=== PATIENT | female | born 1990 | race Caucasian/White ===

== ENCOUNTER → 2018-03-30 12:29 | Outpatient (CLI) | payer MEDICAID, SELFPAY ==
[2018-03-30 12:50] LABS: Basophils % 0.3 % (0.1-2.0); Eosinophils # 0.1 K/mm3 (0.0-0.4); Eosinophils % 0.8 % (0.1-12.0); Hematocrit 40.9 % (37.0-47.0); Hemoglobin 13.5 g/dL (12.2-16.2); Lymphocytes # 1.7 K/mm3 (0.7-4.5); Lymphocytes % 30.4 K/mm3 (10-50); Mean Corpuscular HGB Conc 33.1 g/dL (31.8-35.4); Mean Corpuscular Hemoglobin 30.5 pg (27.0-31.2); Mean Corpuscular Volume 92.1 fl (81-99); Mean Platelet Volume 8.5 fl (7.4-10.4); Monocytes # 0.3 K/mm3 (0.1-1.0); Monocytes % 4.4 % (1.7-9.3); Neutrophils # 3.7 K/mm3 (1.8-7.8); Neutrophils % 64.1 % (37.0-80.0); Platelet Count 250 K/mm3 (142-424); Red Blood Count 4.44 M/mm3 (4.20-5.40); Red Cell Distribution Width 12.1 % (11.5-17.5); White Blood Count 5.7 K/mm3 (4.8-10.8)
[2018-03-30 16:32] LABS: Alanine Aminotransferase 35 U/L (12-78); Albumin Level 3.6 gm/dL (3.4-5.0); Alkaline Phosphatase 80 U/L (46-116); Anion Gap 13.5 mEq/L (5-15); Aspartate Amino Transferase 21 U/L (15-37); Bilirubin,Total 0.3 mg/dL (0.2-1.0); Blood Urea Nitrogen 9 mg/dL (7-18); Calcium 9.6 mg/dL (8.5-10.1); Carbon Dioxide 25 mmol/L (21.0-32.0); Chloride 105 mmol/L (98-107); Cholesterol 151 mg/dL (140-200); Creatinine,Serum 0.89 mg/dL (0.55-1.02); Estimated Glomerular Filt Rate 76 ml/min (>60); GFR (African American) 92 ML/MIN (>60); Globulin 3.6 gm/dl (1.3-3.2); Glucose 87 mg/dL (74-106); HDL Cholesterol 51 mg/dL (29-89); LDL Cholesterol 82 mg/dL (0-130); Potassium 4.5 mmoL/L (3.5-5.1); Sodium 139 mmol/L (136-145); Thyroid Stimulating Hormone 0.63 uIU/ml (0.358-3.740); Total Protein,Serum 7.2 gm/dL (6.4-8.2); Triglycerides 90 mg/dL (30-200); VLDL Cholesterol 18 mg/dL (0-40)
== END ==
PROVIDERS: Visit Provider Nurse Practitioner Family
DX: Z00.00 Encounter for general adult medical examination without abnormal findings (principal); N76.0 Acute vaginitis; R31.29 Other microscopic hematuria
CPT/HCPCS: 36415; 80053; 80061; 84443; 85025

== ENCOUNTER → 2018-06-05 10:07 | Outpatient (CLI) | payer MEDICAID, SELFPAY ==
--- NOTE | 2018-06-05 10:08 | US_ITS ---
US transvaginal HISTORY: ITS.REASON: abdominal pain ORDERING PHYSICIAN: Randy Garrison MD PATIENT AGE: 27 years Comparison: None FINDINGS: The uterus measures 7.6 x 3 x 1.5 cm with a combined endometrial thickness of 9 mm. There is a small focus of increased echogenicity in the cervical region within the endocervical canal there is a small echogenic areas in the fundus of the uterus as well. These are questionable clinical significance. A may be due to early calcifications. The right ovary is 2.8 x 2.2 cm and contains small follicles. The left ovary is 3 cm containing a 2 cm cyst. No cul-de-sac fluid. Ovarian blood flow is present on both sides. IMPRESSION: 1. 2 cm left ovarian cyst. 2. Small areas of increased echogenicity in the uterine fundus and one in the cervix. These are questionable clinical significance. Follow-up may confirm stability.
== END ==
PROVIDERS: Family Provider Internal Medicine Adolescent Medicine; PCP Internal Medicine Adolescent Medicine; Visit Provider Obstetrics & Gynecology
DX: R10.2 Pelvic and perineal pain (principal)
CPT/HCPCS: 76830

== ENCOUNTER → 2018-06-18 11:05 | Outpatient (CLI) | payer MEDICAID, SELFPAY ==
[2018-06-18 11:09] LABS: Microscopic, Urine URINE MICROSCOPIC (MICROSCOPIC)
[2018-06-18 11:21] LABS: Bilirubin,Urine Negative (Negative); Blood, Urine 2+ (Negative); Color,Urine YELLOW (Yellow); Glucose,Urine (UA) Negative (Negative); Ketones,Urine Negative (Negative); Leukocyte Esterase,Urine Negative (Negative); Nitrate,Urine Negative (Negative); Protein,Urine Negative (Negative); Specific Gravity, Urine 1.015 (1.005-1.030); Urobilinogen,Urine 0.2 EU/dl (0.2)
[2018-06-18 11:26] LABS: Basophils % 0.2 % (0.1-2.0); Eosinophils # 0.1 K/mm3 (0.0-0.4); Eosinophils % 1.7 % (0.1-12.0); Hematocrit 41.3 % (37.0-47.0); Hemoglobin 13.3 g/dL (12.2-16.2); Lymphocytes # 1.8 K/mm3 (0.7-4.5); Lymphocytes % 34.9 K/mm3 (10-50); Mean Corpuscular HGB Conc 32.1 g/dL (31.8-35.4); Mean Corpuscular Hemoglobin 29.2 pg (27.0-31.2); Mean Corpuscular Volume 90.8 fl (81-99); Mean Platelet Volume 8.4 fl (7.4-10.4); Monocytes # 0.2 K/mm3 (0.1-1.0); Monocytes % 4.3 % (1.7-9.3); Neutrophils % 58.9 % (37.0-80.0); Platelet Count 264 K/mm3 (142-424); Red Blood Count 4.55 M/mm3 (4.20-5.40); White Blood Count 5.1 K/mm3 (4.8-10.8)
[2018-06-18 11:30] LABS: Appearance,Urine Slightly Cloudy (Clear)
[2018-06-18 11:31] LABS: Bacteria,Urine Trace /lpf; Squamous Epithelial Cell,Urine 20-50 #/hpf (0-5)
[2018-06-18 11:50] LABS: HCG Qualitative, Serum Negative (Negative)
[2018-06-18 11:55] LABS: Alanine Aminotransferase 33 U/L (12-78); Albumin Level 3.6 gm/dL (3.4-5.0); Alkaline Phosphatase 93 U/L (46-116); Anion Gap 10.4 mEq/L (5-15); Aspartate Amino Transferase 15 U/L (15-37); Bilirubin,Total 0.4 mg/dL (0.2-1.0); Blood Urea Nitrogen 7 mg/dL (7-18); Calcium 9.1 mg/dL (8.5-10.1); Carbon Dioxide 28 mmol/L (21.0-32.0); Chloride 105 mmol/L (98-107); Creatinine,Serum 0.84 mg/dL (0.55-1.02); Estimated Glomerular Filt Rate 81 ml/min (>60); GFR (African American) 98 ML/MIN (>60); Globulin 3.7 gm/dl (1.3-3.2); Glucose 83 mg/dL (74-106); Potassium 4.4 mmoL/L (3.5-5.1); Sodium 139 mmol/L (136-145); Total Protein,Serum 7.3 gm/dL (6.4-8.2)
== END ==
PROVIDERS: Visit Provider Obstetrics & Gynecology
DX: Z01.818 Encounter for other preprocedural examination (principal); N80.9 Endometriosis, unspecified
CPT/HCPCS: 36415; 80053; 81001; 84703; 85025

== ENCOUNTER → 2018-09-04 09:32 | Outpatient (CLI) | payer MEDICAID, SELFPAY ==
--- NOTE | 2018-09-04 09:38 | XR_ITS ---
EXAM: XR lumbar spine min 4V HISTORY: ITS.REASON: ACUTE RT SIDED BACK PAIN WITH SCIATICA ORDERING PHYSICIAN: Mookie Lim MD PATIENT AGE: 28 years COMPARISON: None FINDINGS: Normal alignment. No fracture or dislocation. No lytic or blastic change. No significant degenerative change. The disc spaces are preserved. IMPRESSION: No acute finding
== END ==
PROVIDERS: PCP Internal Medicine Adolescent Medicine; Visit Provider Internal Medicine Adolescent Medicine
DX: M54.41 Lumbago with sciatica, right side (principal)
CPT/HCPCS: 72110

== ENCOUNTER 2018-09-17 13:00 | Outpatient (RCR) | payer MEDICAID, SELFPAY ==
--- NOTE | 2018-09-09 13:38 | HMH.PTOPEV ---
PT Outpatient Evaluation Rehab PT Outpatient Evaluation Start: 09/09/18 12:52 Freq: Status: Active Protocol: Document 09/09/18 13:25 PHOCECY (Rec: 09/09/18 13:38 PHORNE [id number]) Electronically Signed By Clemente Renteria, PT 09/09/18 13:25 Outpatient Therapy Subjective History Subjective History Pt is 28 yowf who presents with c/o pain in low back x ~ 4 mos, but much worse x ~ 1 wk after an episode of feeling increased pain when bending over. She reports tingling and pain in jimmy LE intermittently and reports the left foot and right hip present with the worst symptoms. She reports no significant PMH, but did have laproscopy due to endometriosis ~ 3 mos ago. Chief Complaint Pain Symptom Type Ache Sharp Symptoms Relieved By Nothing Symptoms Aggravated By Bending/Stooping Prior Functional Limitations None Current Functional Limitations Housework Bending/Stooping Symptom Description Constant but Variable Level of pain today (0-10) 5 Pain scale - at its worst (0-10) 9 Lumbopelvic Eval Posture Thoracic Spine Posture Standing Position Increased Kyphosis Palapation tenderness bilateral paraspinal tenderness Yes Lumbar/Sacral Palpation Findings Tenderness Lumbar/Sacral Palpation Overall Comment jimmy SI jt Accessory Movement L-spine Vertebrae Accessory Movements Central P/A [place] that Elicit Symptoms L2 bilateral L3 bilateral L4 bilateral L5 bilateral S1 bilateral Range of Motion Lumbar Spine Active Flexion Range of 0-55 Motion (degrees) Lumbar Spine Active Extension Range of 0-20 Motion (degrees) Left Lumbar Spine Lateral Flexion Active 0-15 Range of Motion (degrees) Right Lumbar Spine Lateral Flexion 0-20 Active Range of Motion (degrees) Manual Muscle Test Bilateral Knee Extension Strength Grade 5 Normal Knee Flexion Strength Grade 5 Normal Hip Flexion Strength Grade 5 Normal Hip Abduction Strength Grade 5 Normal Hip Adduction Strength Grade 5 Normal Hip External Rotation Strength Grade 5 Normal Hip Internal Rotation Strength Grade 5 Normal Hip Extension Strength Grade 5 Normal Gluteus Bobby Strength Grade 5 Normal Extensor Hallucis Longus Strength Gr
== END 2018-09-17 13:01 | disposition home or self-care (01) ==
LOC: PT 13:00
PROVIDERS: Family Provider Internal Medicine Adolescent Medicine; PCP Internal Medicine Adolescent Medicine; Visit Provider Internal Medicine Adolescent Medicine
DX: M54.41 Lumbago with sciatica, right side (principal)
CPT/HCPCS: 97010; 97014; 97035; 97110; 97140; 97163; G0283

== ENCOUNTER → 2019-08-03 11:09 | Outpatient (CLI) | payer MEDICAID, SELFPAY ==
[2019-08-03 12:26] LABS: Basophils % 0.3 % (0.1-2.0); Eosinophils # 0.1 K/mm3 (0.0-0.4); Eosinophils % 1.2 % (0.1-12.0); Hematocrit 35.8 % (37.0-47.0); Hemoglobin 11.6 g/dL (12.2-16.2); Lymphocytes # 1.6 K/mm3 (0.7-4.5); Lymphocytes % 26.4 % (10-50); Mean Corpuscular HGB Conc 32.5 g/dL (31.8-35.4); Mean Corpuscular Volume 89.2 fl (81-99); Mean Platelet Volume 7.8 fl (7.4-10.4); Monocytes # 0.2 K/mm3 (0.1-1.0); Monocytes % 3.6 % (1.7-9.3); Neutrophils # 4.1 K/mm3 (1.8-7.8); Neutrophils % 68.5 % (37.0-80.0); Platelet Count 253 K/mm3 (142-424); Red Blood Count 4.01 M/mm3 (4.20-5.40); Red Cell Distribution Width 13.3 % (11.5-17.5); White Blood Count 5.9 K/mm3 (4.8-10.8)
[2019-08-03 13:00] LABS: Amphetamine/Metha Screen,Urine Negative ng/mL (<1000); Barbiturates Screen,Urine Negative ng/mL (<200); Benzodiazepines Screen,Urine Negative ng/mL (<200); Cannabinoid Screen,Urine Negative ng/mL (<50); Cocaine Screen,Urine Negative ng/mL (<300); Methadone Screen,Urine Negative ng/mL (<300); Opiate Screen,Urine Negative ng/mL (<300); Phencyclidine Screen,Urine Negative ng/mL (<25)
[2019-08-03 13:05] LABS: Thyroid Stimulating Hormone 1.08 uIU/ml (0.358-3.740)
[2019-08-04 05:08] LABS: HIV Screen 4th Generation wRfx Non Reactive (Non Reactive)
[2019-08-04 07:27] LABS: Hepatitis B Surface Antigen Negative (Negative); Hepatitis C Antibody <0.1 s/co ratio (0.0-0.9)
[2019-08-04 14:30] LABS: Rapid Plasma Reagin Ab Titer Non Reactive (NonRea<1:1); Rubella Antibodies, IgG <0.90 index (Immune >0.99)
== END ==
PROVIDERS: Visit Provider Obstetrics & Gynecology
DX: Z34.90 Encounter for supervision of normal pregnancy, unspecified, unspecified trimester (principal)
CPT/HCPCS: 36415; 80305; 84443; 85025; 86592; 86703; 86762; 86850; 87340; 87380; G0432

== ENCOUNTER 2020-08-01 05:18 | Emergency (ER) | payer OTHER, SELFPAY ==
[2020-08-01 05:30] VITALS: BP 142/89; PULSE 89; RESP 16; TEMP 36.9; O2SAT 100; BMI 36.8
--- NOTE | 2020-08-01 05:37 | HMH.EDGENADL ---
ED Disposition Clinical Impression: Threatened miscarriage in early Disposition: Home, Self-Care Condition on Discharge: Good Instructions: DI for Threatened Additional Instructions: You have been evaluated for vaginal bleeding in first trimester of . It is likely too early to be able to see a normal intrauterine . We have not excluded a outside of the uterus, called an ectopic. Please follow-up with your [facility] in 24 to 48 hours for repeat hCG. Return to the emergency department if you have any new or worsening symptoms, pain, other concerns. Referrals: Sherron Joyce APRN [Primary Care Provider] - Time of Disposition: 06:33 - Critical Care Critical Care Time: No Attestation: On , the high probability of a clinically significant, sudden or life threatening deterioration of the following system(s) required my full and direct attention, intervention and personal management. The time I documented below is in addition to time spent performing reported procedures but includes the following listed in this critical care notation. Medical Decision Making - Medical Records Medical records reviewed: Yes: I reviewed the patient's medical records. - Laz Inquiry Pt receiving controlled substance: No Vital Signs: 08/01/20 05:30 Temperature 98.5 F Temperature Source Oral Pulse Rate [Left] 89 Respiratory Rate 16 Blood Pressure [Right Arm] 142/89 H Blood Pressure Mean [Right Arm] 106 Blood Pressure Source [Right Arm] Automatic Cuff Blood Pressure Position [Right Arm] Sitting 02 Sat by Pulse Oximetry 100 Oxygen Delivery Method Room Air - Lab Data Lab Results 08/01/20 05:40: Urine Color Dk yellow, Urine Appearance Sl cloudy, Urine pH 6.0, Ur Specific [place] 1.025, Urine Protein Negative, Urine Glucose (UA) Negative, Urine Ketones Negative, Urine Blood 3+, Urine Nitrate Negative, Urine Bilirubin Negative, Urine Urobilinogen 0.2, Ur Leukocyte Esterase Negative, Urine RBC 3-5, Urine WBC 5-10, Ur Squamous Epith Cells 10-20, Urine Bacteria 1+ 08/01/20 05:40: Urine HCG, Qual Positive 08/01/20 05:40: HCG, Quant 75 H Orders (Tests/Meds): ORDERS Category Date Time Status US OB transvaginal Stat Ultrasound 08/01/20 05:46 Taken Medical Decision Narrative: in summary this is a 30 year old female presenting to the emergency department with vaginal spotting. She is clinically stable on arrival. Borderline hypertensive, but this is baseline hypertension. Plan to obtain urinalysis, hCG. Patient's blood type is A+, does not require RhoGam. Urinalysis does not show signs of urinary tract infection. Transvaginal ultrasound does not show a clear intrauterine . Does not visualize a cyst or other abnormality within the ovaries. No significant free fluid in the pelvis. Beta hCG is 75. This is significantly low and below the discriminatory zone. On reassessment patient clinically stable in the emergency department. I counseled her to follow-up with her [facility] in 24 to 48 hours. She expressed understanding. Stable for discharge. General Adult HPI - General Chief complaint: Vaginal Bleeding Stated complaint: 5 weeks with spotting Time Seen by Provider: 08/01/20 05:37 Mode of Arrival: Ambulatory Limitations: No Limitations Description of Symptoms (Recalled from ER Triage Doc. by RN): pt has confirmed via bloodwork. she is five weeks[address] Kinney next week. Para 4 3. spotting since this am. she had a miscarriage at almost 16 weeks last august. - History of Present Illness HPI narrative: 30 year old female presenting to the emergency department with vaginal spotting. When she woke up this morning she noticed that there was a small amount of dark blood in her underwear. She is approximately 4 weeks by last menstrual. Has had her confirmed with a blood test as well as urine test. Sh
--- NOTE | 2020-08-01 05:46 | US_ITS ---
PROCEDURE: US OB TRANSVAGINAL CLINICAL INDICATION: bleeding, +preg test COMPARISON: US US OB TRANSVAGINAL from 09/30/2019 FINDINGS: The uterus is retroverted and measures 8 x 5 x 6 cm with a combined endometrial thickness of 13 mm. No intrauterine gestational sac is evident. Specular echoes are present near the cervix and could be due to calcifications or air. The left ovary is 23 x 11 mm with blood flow noted with unremarkable appearance. The right ovary is 26 x 21 mm with blood flow noted. There is a 12 mm cyst in the right ovary. No cul-de-sac fluid is apparent. IMPRESSION: 1. No intrauterine gestational sac apparent. Suggest correlation with beta HCG and follow-up ultrasound if beta hCG remains positive. 2. Retroverted uterus with mildly thickened endometrium and a 12 mm right ovarian cyst Dictated by: Erik Villareal MD 08/01/2020 06:54 Erik Villareal MD in [facility] 08/01/2020 06:54
--- NOTE | 2020-08-01 05:46 | PC.NURSE ---
Notified rad of US
--- NOTE | 2020-08-01 05:55 | PC.NURSE ---
Pt left for US
[2020-08-01 06:15] LABS: Appearance,Urine SL CLOUDY (Clear); Bilirubin,Urine Negative (Negative); Blood, Urine 3+ (Negative); Color,Urine DK YELLOW (Yellow); Glucose,Urine (UA) Negative (Negative); Ketones,Urine Negative (Negative); Leukocyte Esterase,Urine Negative (Negative); Microscopic, Urine URINE MICROSCOPIC (MICROSCOPIC); Nitrate,Urine Negative (Negative); Protein,Urine Negative (Negative); Specific Gravity, Urine 1.025 (1.005-1.030); Urobilinogen,Urine 0.2 EU/dl (0.2)
[2020-08-01 06:19] LABS: Urine Pregnancy, HCG Qual. Positive (Negative)
--- NOTE | 2020-08-01 06:24 | PC.NURSE ---
Pt returned from US
[2020-08-01 06:42] LABS: HCG,Quantitative 75 mIU/ml (0-5.42)
[2020-08-01 06:44] LABS: Bacteria,Urine 1+ /lpf
[2020-08-01 06:49] VITALS: BP 132/81; PULSE 72; RESP 18; TEMP 36.6
== END 2020-08-01 06:52 | disposition home or self-care (01) ==
PROVIDERS: Emergency Provider Emergency Medicine; PCP Nurse Practitioner Family
DX: O20.0 Threatened abortion (principal); F17.210 Nicotine dependence, cigarettes, uncomplicated
CPT/HCPCS: 76817; 81001; 81025; 84702; 99283

== ENCOUNTER → 2020-08-07 08:15 | Outpatient (CLI) | payer OTHER, SELFPAY ==
[2020-08-07 10:21] LABS: HCG,Quantitative 3 mIU/ml (0-5.42)
== END ==
PROVIDERS: Visit Provider Nurse Practitioner Obstetrics & Gynecology
DX: O20.0 Threatened abortion (principal)
CPT/HCPCS: 36415; 84702

== ENCOUNTER → 2020-09-21 13:25 | Outpatient (CLI) | payer OTHER, SELFPAY ==
[2020-09-21 14:43] LABS: HCG,Quantitative 46 mIU/ml (0-5.42)
== END ==
PROVIDERS: Visit Provider Nurse Practitioner Obstetrics & Gynecology
DX: N92.6 Irregular menstruation, unspecified (principal)
CPT/HCPCS: 36415; 84702

== ENCOUNTER → 2020-09-29 06:50 | Outpatient (CLI) | payer OTHER, SELFPAY ==
[2020-09-29 08:16] LABS: HCG,Quantitative 2075 mIU/ml (0-5.42)
== END ==
PROVIDERS: Visit Provider Nurse Practitioner Obstetrics & Gynecology
DX: N92.6 Irregular menstruation, unspecified (principal)
CPT/HCPCS: 36415; 84702

== ENCOUNTER → 2020-10-18 11:35 | Outpatient (CLI) | payer OTHER, SELFPAY ==
[2020-10-18 12:34] LABS: Basophils % 0.1 % (0.1-2.0); Eosinophils # 0.1 K/mm3 (0.0-0.4); Eosinophils % 0.9 % (0.1-12.0); Hematocrit 35.7 % (37.0-47.0); Hemoglobin 11.5 g/dL (12.2-16.2); Lymphocytes # 1.5 K/mm3 (0.7-4.5); Lymphocytes % 24.3 % (10-50); Mean Corpuscular HGB Conc 32.2 g/dL (31.8-35.4); Mean Corpuscular Hemoglobin 28.9 pg (27.0-31.2); Mean Corpuscular Volume 89.8 fl (81-99); Monocytes # 0.3 K/mm3 (0.1-1.0); Monocytes % 4.4 % (1.7-9.3); Neutrophils # 4.4 K/mm3 (1.8-7.8); Neutrophils % 70.2 % (37.0-80.0); Platelet Count 226 K/mm3 (142-424); Red Blood Count 3.97 M/mm3 (4.20-5.40); Red Cell Distribution Width 14.7 % (11.5-17.5); White Blood Count 6.2 K/mm3 (4.8-10.8)
[2020-10-19 10:47] LABS: HIV Screen 4th Generation wRfx Non Reactive (Non Reactive)
[2020-10-19 13:50] LABS: Hepatitis B Surface Antigen Negative (Negative); Hepatitis C Antibody <0.1 s/co ratio (0.0-0.9); Rapid Plasma Reagin Ab Titer Non Reactive (NonRea<1:1)
[2020-10-20 16:20] LABS: Rubella Antibodies, IgG 0.95 index (Immune >0.99)
== END ==
PROVIDERS: Visit Provider Nurse Practitioner Obstetrics & Gynecology
DX: Z34.90 Encounter for supervision of normal pregnancy, unspecified, unspecified trimester (principal)
CPT/HCPCS: 36415; 85025; 86592; 86703; 86762; 86850; 87340; 87380; G0432

== ENCOUNTER → 2020-10-23 14:19 | Outpatient (CLI) | payer OTHER, SELFPAY ==
--- NOTE | 2020-10-23 14:19 | US_ITS ---
PROCEDURE: US OB <= 14 WEEKS FETUS CLINICAL INDICATION: US OB before 14 wks-US OB for DATES COMPARISON: US US OB TRANSVAGINAL from 08/01/2020 FINDINGS: An intrauterine gestational sac is present with a pole with a crown-rump length of 2.04cm correlating to gestational age of 8weeks 5days. heart tones are present with an FHR of 169bpm. Yolk sac is noted. IMPRESSION: Live IUP at 8 weeks 5 days. Estimated due date by Ultrasound is 05/30/2021 Dictated by: Erik Villareal MD 10/23/2020 15:40 Erik Villareal MD in [facility] 10/23/2020 15:40
== END ==
PROVIDERS: PCP Nurse Practitioner Family; Visit Provider Nurse Practitioner Obstetrics & Gynecology
DX: O26.841 Uterine size-date discrepancy, first trimester (principal)
CPT/HCPCS: 76801

== ENCOUNTER → 2020-11-14 18:10 | Outpatient (CLI) | payer OTHER, SELFPAY ==
[2020-11-14 18:12] LABS: Microscopic, Urine URINE MICROSCOPIC (MICROSCOPIC)
[2020-11-14 19:01] LABS: Appearance,Urine CLEAR (Clear); Bilirubin,Urine Negative (Negative); Blood, Urine 1+ (Negative); Color,Urine YELLOW (Yellow); Glucose,Urine (UA) Negative (Negative); Ketones,Urine Negative (Negative); Leukocyte Esterase,Urine 1+ (Negative); Nitrate,Urine Negative (Negative); PH,Urine 7.5 (5.0-8.5); Protein,Urine Negative (Negative); Specific Gravity, Urine 1.015 (1.005-1.030); Urobilinogen,Urine 0.2 EU/dl (0.2)
[2020-11-14 20:11] LABS: Bacteria,Urine Trace /lpf
== END ==
PROVIDERS: Visit Provider Nurse Practitioner Obstetrics & Gynecology
DX: Z34.90 Encounter for supervision of normal pregnancy, unspecified, unspecified trimester (principal); Z3A.11 11 weeks gestation of pregnancy
CPT/HCPCS: 81001; 87086

== ENCOUNTER → 2021-01-04 12:48 | Outpatient (CLI) | payer OTHER, SELFPAY ==
--- NOTE | 2021-01-04 12:48 | US_ITS ---
PROCEDURE: US OB /MATERNAL DETAIL CLINICAL INDICATION: 20 week gestation Anatomy exam COMPARISON: US US OB <= 14 WEEKS FETUS from 10/23/2020 FINDINGS: There is a single live fetus present which was in breech presentation initially but ended up in cephalic presentation.. The cervix is closed and measures 4 cm. Placenta is anterior and grade 1. Complete survey performed and was unremarkable on the submitted images as in PACS. No discrete anomalies identified on survey imaging by technologist. Active fetus. Three-vessel cord with satisfactory umbilical cord insertion. 4- chamber heart noted. There is a nonspecific echogenic cardiac focus. Survey of brain & ventricles Unremarkable. Face and neck survey unremarkable. Diaphragm and chest views unremarkable. Abdomen: Both kidneys noted and unremarkable. Stomach noted and satisfactory. Spine: Survey of the spine satisfactory with no anomalies identified nor imaged. Both arms and legs noted. Amniotic Fluid: Adequate. Maternal adnexa: No significant findings. Measurements: Average ultrasound age 19weeks 2days. Gestational Age 19weeks 2days Estimated due date by ultrasound age 0605/29/2021. Estimated weight 308g BPD = 18weeks 6days OFD = 19 weeks 3 days HC = 18weeks 3days AC = 20weeks FL = 19weeks 6days Growth Percentile= 78% Heart Rate = 150bpm Cerebellum = 19weeks 1day Humerus = 18weeks 6days HC/AC is 1.05 CI is 0.76 FL/BPD is 0.74 FL/AC is 0.21 IMPRESSION: There is a live IUP at 19 weeks 2 days which ended up in cephalic presentation. All parameters correlate. Nonspecific echogenic cardiac focus is noted which is of questionable clinical significance. Fetus has an otherwise unremarkable appearance. Dictated by: Erik Villareal MD 01/05/2021 13:20 Erik Villareal MD in [facility] 01/05/2021 13:20
== END ==
PROVIDERS: PCP Nurse Practitioner Family; Visit Provider Nurse Practitioner Obstetrics & Gynecology
DX: Z3A.20 20 weeks gestation of pregnancy; Z34.90 Encounter for supervision of normal pregnancy, unspecified, unspecified trimester
CPT/HCPCS: 76805; 76811

== ENCOUNTER → 2021-02-23 07:00 | Outpatient (CLI) | payer OTHER, SELFPAY ==
[2021-02-23 08:10] LABS: Glucose,Fasting 87 mg/dl (74-100)
[2021-02-23 08:56] LABS: Glucose 1 Hour 122 mg/dL (74-100)
== END ==
PROVIDERS: Visit Provider Nurse Practitioner Obstetrics & Gynecology
DX: Z34.90 Encounter for supervision of normal pregnancy, unspecified, unspecified trimester (principal)
CPT/HCPCS: 36415; 82951

== ENCOUNTER 2021-04-27 11:31 | Outpatient (CLI) | payer OTHER, SELFPAY ==
[2021-04-27 11:44] VITALS: BMI 39.4
[2021-04-27 12:14] VITALS: BP 125/71; PULSE 77; RESP 16; O2SAT 96; BMI 39.4
[2021-04-27 12:22] LABS: Microscopic, Urine URINE MICROSCOPIC (MICROSCOPIC)
[2021-04-27 12:23] LABS: Appearance,Urine CLEAR (Clear); Bilirubin,Urine Negative (Negative); Blood, Urine Negative (Negative); Color,Urine YELLOW (Yellow); Glucose,Urine (UA) Negative (Negative); Ketones,Urine Negative (Negative); Leukocyte Esterase,Urine Negative (Negative); Nitrate,Urine Negative (Negative); Protein,Urine Negative (Negative); Specific Gravity, Urine 1.015 (1.005-1.030); Urobilinogen,Urine 0.2 EU/dl (0.2)
[2021-04-27 12:30] LABS: Amorphous Sediment,Urine 1+ /lpf
[2021-04-27 16:44] LABS: Barbiturates Screen,Urine Negative ng/ml (<200); Benzodiazepines Screen,Urine Negative ng/ml (<200)
[2021-04-27 16:45] LABS: Cannabinoid Screen,Urine Negative ng/ml (<50)
[2021-04-27 16:46] LABS: Cocaine Screen,Urine Negative ng/ml (<300)
[2021-04-27 16:47] LABS: Methadone Screen,Urine Negative ng/ml (<300)
[2021-04-27 16:48] LABS: Opiate Screen,Urine Negative ng/ml (<300); Phencyclidine Screen,Urine Negative ng/ml (<25)
[2021-04-27 16:51] LABS: Amphetamine/Metha Screen,Urine Negative ng/ml (<1000)
== END 2021-04-27 13:32 | disposition home or self-care (01) ==
LOC: OBOUT 11:33 → OB 11:34
PROVIDERS: PCP Internal Medicine Adolescent Medicine; Visit Provider Obstetrics & Gynecology
DX: O47.03 False labor before 37 completed weeks of gestation, third trimester (principal); Z3A.35 35 weeks gestation of pregnancy; R10.2 Pelvic and perineal pain; R11.0 Nausea
CPT/HCPCS: 59025; 80305; 81001; 96365; G0463

== ENCOUNTER → 2021-05-03 15:38 | Outpatient (CLI) | payer OTHER, SELFPAY | PROVIDERS: Visit Provider Nurse Practitioner Obstetrics & Gynecology | DX: Z34.90 Encounter for supervision of normal pregnancy, unspecified, unspecified trimester (principal) | CPT/HCPCS: 86403 ==

== ENCOUNTER 2021-05-10 20:27 | Outpatient (CLI) | payer OTHER, SELFPAY ==
[2021-05-10 20:36] VITALS: BMI 39.7
[2021-05-10 21:17] LABS: Microscopic, Urine URINE MICROSCOPIC (MICROSCOPIC)
[2021-05-10 21:20] LABS: Appearance,Urine CLEAR (Clear); Bilirubin,Urine Negative (Negative); Blood, Urine TRACE-I (Negative); Color,Urine YELLOW (Yellow); Glucose,Urine (UA) Negative (Negative); Ketones,Urine Negative (Negative); Leukocyte Esterase,Urine Negative (Negative); Nitrate,Urine Negative (Negative); Protein,Urine Negative (Negative); Urobilinogen,Urine 0.2 EU/dl (0.2)
[2021-05-10 21:32] LABS: Amphetamine/Metha Screen,Urine Negative ng/ml (<1000); RBC,Urine Occasional #/hpf (0-3)
[2021-05-10 21:34] LABS: Barbiturates Screen,Urine Negative ng/ml (<200); Benzodiazepines Screen,Urine Negative ng/ml (<200)
[2021-05-10 21:35] LABS: Cannabinoid Screen,Urine Negative ng/ml (<50); Cocaine Screen,Urine Negative ng/ml (<300)
[2021-05-10 21:36] LABS: Methadone Screen,Urine Negative ng/ml (<300)
[2021-05-10 21:37] LABS: Opiate Screen,Urine Negative ng/ml (<300); Phencyclidine Screen,Urine Negative ng/ml (<25)
[2021-05-10 21:38] VITALS: BP 140/88; PULSE 99; RESP 18; TEMP 37.6; O2SAT 97; BMI 39.7
== END 2021-05-10 23:11 | disposition home or self-care (01) ==
LOC: OBOUT 20:32 → OB 20:33
PROVIDERS: PCP Nurse Practitioner Obstetrics & Gynecology; Visit Provider Obstetrics & Gynecology
DX: O60.03 Preterm labor without delivery, third trimester (principal); Z3A.37 37 weeks gestation of pregnancy
CPT/HCPCS: 59025; 80305; 81001; 96365; G0463

== ENCOUNTER 2021-05-13 01:23 | Observation (INO) | payer OTHER, SELFPAY ==
[2021-05-12 22:47] VITALS: BMI 40.1
[2021-05-12 23:02] LABS: Microscopic, Urine URINE MICROSCOPIC (MICROSCOPIC)
[2021-05-12 23:03] VITALS: BP 120/72; PULSE 105; RESP 18; TEMP 36.7; O2SAT 96; BMI 40.1
[2021-05-12 23:05] LABS: Appearance,Urine CLEAR (Clear); Bilirubin,Urine Negative (Negative); Blood, Urine TRACE-I (Negative); Color,Urine STRAW (Yellow); Glucose,Urine (UA) Negative (Negative); Ketones,Urine Negative (Negative); Leukocyte Esterase,Urine Negative (Negative); Nitrate,Urine Negative (Negative); Protein,Urine Negative (Negative); Urobilinogen,Urine 0.2 EU/dl (0.2)
[2021-05-12 23:14] LABS: Bacteria,Urine Trace /lpf; RBC,Urine Occasional #/hpf (0-3); Squamous Epithelial Cell,Urine Occasional #/hpf (0-5)
[2021-05-12 23:16] LABS: Barbiturates Screen,Urine Negative ng/ml (<200); Benzodiazepines Screen,Urine Negative ng/ml (<200)
[2021-05-12 23:17] LABS: Amphetamine/Metha Screen,Urine Negative ng/ml (<1000)
[2021-05-12 23:18] LABS: Cannabinoid Screen,Urine Negative ng/ml (<50); Cocaine Screen,Urine Negative ng/ml (<300)
[2021-05-12 23:19] LABS: Methadone Screen,Urine Negative ng/ml (<300); Opiate Screen,Urine Negative ng/ml (<300)
[2021-05-12 23:20] LABS: Phencyclidine Screen,Urine Negative ng/ml (<25)
[2021-05-13 01:13] LABS: Coronavirus 19, PCR Not Detected (NotDetected); Influenza A, PCR Not Detected (NotDetected); Influenza B, PCR Not Detected (NotDetected)
[2021-05-13 01:21] LABS: Basophils % 0.1 % (0.1-2.0); Eosinophils # 0.1 K/mm3 (0.0-0.4); Eosinophils % 0.5 % (0.1-12.0); Hematocrit 30.6 % (37.0-47.0); Hemoglobin 10.5 g/dL (12.2-16.2); Lymphocytes # 2.3 K/mm3 (0.7-4.5); Lymphocytes % 14.8 % (10-50); Mean Corpuscular HGB Conc 34.3 g/dL (31.8-35.4); Mean Corpuscular Hemoglobin 30.3 pg (27.0-31.2); Mean Corpuscular Volume 88.3 fl (81-99); Mean Platelet Volume 8.9 fl (7.4-10.4); Monocytes # 0.6 K/mm3 (0.1-1.0); Monocytes % 4.1 % (1.7-9.3); Neutrophils # 12.2 K/mm3 (1.8-7.8); Neutrophils % 80.5 % (37.0-80.0); Platelet Count 251 K/mm3 (142-424); Red Blood Count 3.47 M/mm3 (4.20-5.40); Red Cell Distribution Width 14.3 % (11.5-17.5); White Blood Count 15.2 K/mm3 (4.8-10.8)
[2021-05-13 01:23] LABS: MANUAL DIFFERENTIAL MANUAL DIFFERENTIAL (MANUAL DIFF)
[2021-05-13 01:34] LABS: Lymphocytes % 7 % (10-50); Monocytes % 3 % (2-9); Neutrophils % 90 % (42-76); Platelet Estimate Normal; RBC Morphology Normal; Total Cells Counted 100
[2021-05-13 01:35] VITALS: BP 125/59; PULSE 90; RESP 18; TEMP 36.8; O2SAT 98
[2021-05-13 04:43] VITALS: BP 109/53; PULSE 76; RESP 17; TEMP 36.9; O2SAT 97
[2021-05-13 07:15] VITALS: BP 116/57; PULSE 73; RESP 16; TEMP 36.8; O2SAT 97
--- NOTE | 2021-05-13 08:19 | HMH.HP ---
*Admission Date: 05/12/21 *Chief complaint: Regular contractions at 37-3/7 weeks *History of present illness: This 30-year-old 3, para 2, Ab0 white female was admitted at 37-3/7 weeks with regular contractions every 2 to 3 minutes. She has had 2 previous vaginal deliveries, after the first of which she experienced a hemorrhage. There have been no complications during this . She is group B strep positive. [facility] History I have reviewed the patient's past medical history: Yes (Normal, except for hemorrhage after her first delivery (not her ) Medical History: Denies:: Cancer, Diabetes Mellitus Type 1, Diabetes Mellitus Type 2, MRSA, Seizures *Have you ever received a pneumonia vaccine?: No *Have you received a flu vaccine this season?: No Other Medical History: Reports: Other. Denies: Blood Transfusion Reaction Other Surgeries: Yes: Cholecystectomy, Diagnostic Lap, Other. No: Amputation: No Fractures: No - *Social History Smoking Status: Current every day smoker Tobacco Type: cigarettes # Packs/Day (cigarettes): 1 Alcohol Intake: never Alcohol Intake Frequency:: other Substance Use Type: denies use *Occupational Status:: unemployed Household Members: family *Travel in the last 8 weeks: None Family Hx:: No significant family history Para: 2 Meds Home Medications Medication Instructions Recorded Confirmed Type vit 122-ferrous fumarate 1 tab PO DAILY #30 tab 10/17/20 05/13/21 Rx 27 mg iron-folic acid 800 mcg tablet Ferrous Gluconate [Ferrous 240 mg PO DAILY 05/13/21 05/13/21 History Gluconate 240mg Tab] Allergies Allergy/AdvReac Type Severity Reaction Status Date / Time No Known Allergies Allergy Verified 05/11/21 09:57 Exam Vital signs and Labs for Last 24 Hours: Temp Pulse Resp BP Pulse Ox 98.4 F 76 17 109/53 L 97 05/13/21 04:43 05/13/21 04:43 05/13/21 04:43 05/13/21 04:43 05/13/21 04:43 Laboratory Results - last 24 hr 05/12/21 22:02: Urine Color Straw, Urine Appearance Clear, Urine pH 7.0, Ur Specific [place] 1.010, Urine Protein Negative, Urine Glucose (UA) Negative, Urine Ketones Negative, Urine Blood Trace-i, Urine Nitrate Negative, Urine Bilirubin Negative, Urine Urobilinogen 0.2, Ur Leukocyte Esterase Negative, Urine RBC Occasional, Ur Squamous Epith Cells Occasional, Urine Bacteria Trace 05/12/21 22:02: Urine Opiates Screen Negative, Urine Methadone Screen Negative, Ur Barbituates Screen Negative, Ur Phencyclidine Scrn Negative, Ur Amphetamines Screen Negative, U Benzodiazepines Scrn Negative, Urine Cocaine Screen Negative, U Marijuana (THC) Screen Negative 05/13/21 01:02: WBC 15.2 H, RBC 3.47 L, Hgb 10.5 L, Hct 30.6 L, MCV 88.3, MCH 30.3, MCHC 34.3, RDW 14.3, Plt Count 251, MPV 8.9, Neut % (Auto) 80.5 H, Lymph % (Auto) 14.8, [place] % (Auto) 4.1, Eos % (Auto) 0.5, Baso % (Auto) 0.1, Neut # (Auto) 12.2 H, Lymph # (Auto) 2.3, [place] # (Auto) 0.6, Eos # (Auto) 0.1, Baso # (Auto) 0.0, Total Counted 100, Neutrophils % (Manual) 90 H, Lymphocytes % (Manual) 7 L, Monocytes % (Manual) 3, Platelet Estimate Normal, RBC Morphology Normal 05/13/21 01:02: Blood Type A Positive, Antibody Screen Negative I & O for Last 24 hours: Intake & Output 05/10/21 05/11/21 05/12/21 05/13/21 11:59 11:59 11:59 11:59 Weight 256 lb - *Routine HEENT Exam Head: Present: normocephalic (Normal) Eye: Present: EOMI (Normal) ENT: Present: mucous membranes moist (Normal) - *Routine Respiratory Exam Present: accessory muscle use (Normal) - *Routine Cardiovascular Exam Present: RRR (Normal) - *Routine Abdominal Exam Present: soft (Soft) - *Routine Rectal Exam Rectal:: deferred - *Routine Genitalia Exam Genitalia:: normal female
--- NOTE | 2021-05-13 08:25 | P.PN_ITS ---
Internal Medicine - PN: Subj *Date: 05/13/21 *Time: 08:25 (This 30-year-old 3, para 2, Ab0 white female was admitted at approximately 2300 last evening with regular contractions at 37-3/7 weeks. Her contractions continued, but her cervix has remained 1 to 2 cm. She is currently being augmented with intravenous Pitocin. She is also receiving intravenous antibiotics because of a positive group B strep culture. This patient experienced a hemorrhage after her first delivery (not her second), and has had no complications during this . Her first 2 babies weighed 6 pounds 8 ounces and 7 pounds 10 ounces. This baby appears somewhat larger. Proceeding with anticipation of a vaginal delivery.) Exam Vital signs and Labs for Last 24 Hours: Temp Pulse Resp BP Pulse Ox 98.4 F 76 17 109/53 L 97 05/13/21 04:43 05/13/21 04:43 05/13/21 04:43 05/13/21 04:43 05/13/21 04:43 Laboratory Results - last 24 hr 05/12/21 22:02: Urine Color Straw, Urine Appearance Clear, Urine pH 7.0, Ur Specific [place] 1.010, Urine Protein Negative, Urine Glucose (UA) Negative, Urine Ketones Negative, Urine Blood Trace-i, Urine Nitrate Negative, Urine Bilirubin Negative, Urine Urobilinogen 0.2, Ur Leukocyte Esterase Negative, Urine RBC Occasional, Ur Squamous Epith Cells Occasional, Urine Bacteria Trace 05/12/21 22:02: Urine Opiates Screen Negative, Urine Methadone Screen Negative, Ur Barbituates Screen Negative, Ur Phencyclidine Scrn Negative, Ur Amphetamines Screen Negative, U Benzodiazepines Scrn Negative, Urine Cocaine Screen Negative, U Marijuana (THC) Screen Negative 05/13/21 01:02: WBC 15.2 H, RBC 3.47 L, Hgb 10.5 L, Hct 30.6 L, MCV 88.3, MCH 30.3, MCHC 34.3, RDW 14.3, Plt Count 251, MPV 8.9, Neut % (Auto) 80.5 H, Lymph % (Auto) 14.8, [place] % (Auto) 4.1, Eos % (Auto) 0.5, Baso % (Auto) 0.1, Neut # (Auto) 12.2 H, Lymph # (Auto) 2.3, [place] # (Auto) 0.6, Eos # (Auto) 0.1, Baso # (Auto) 0.0, Total Counted 100, Neutrophils % (Manual) 90 H, Lymphocytes % (Manual) 7 L, Monocytes % (Manual) 3, Platelet Estimate Normal, RBC Morphology Normal 05/13/21 01:02: Blood Type A Positive, Antibody Screen Negative I & O for Last 24 hours: Intake & Output 05/10/21 05/11/21 05/12/21 05/13/21 11:59 11:59 11:59 11:59 Weight 256 lb
--- NOTE | 2021-05-13 08:36 | HMH.ACPN2 ---
Internal Medicine - PN: Subj *Date: 05/13/21 *Time: 08:36 Interval history: Since my last note, there has been a change of plans. Upon further consideration and in consultation with the patient and her partner, given the fact that she is 37-4/7 weeks and has been having fairly strong somewhat regular contractions for 9 to 10 hours at this time with no change in her cervix, it seems prudent to be more conservative and discharge the patient to home to await further developments. Her nonstress/stress test is reactive. She has had 2 previous vaginal deliveries, after the first of which she experienced a hemorrhage (not the second), and has had no problems during this . This baby does appear larger than her first 2 (6 pound 8 ounces and 7 pound 10 ounces), and I feel that pushing her delivery at this time might increase the necessity for a section. All this has been explained to the patient and her partner and they understand and accept this decision. Her IV and IV Pitocin will be discontinued and she will be discharged. She is counseled to return to the labor room if her bag of water breaks or if her contractions become more regular and unbearable. She is counseled to rest at home and to call Dr. Kinney's office tomorrow morning for further instructions. Exam Vital signs and Labs for Last 24 Hours: Temp Pulse Resp BP Pulse Ox 98.2 F 73 16 116/57 L 97 05/13/21 07:15 05/13/21 07:15 05/13/21 07:15 05/13/21 07:15 05/13/21 07:15 Laboratory Results - last 24 hr 05/12/21 22:02: Urine Color Straw, Urine Appearance Clear, Urine pH 7.0, Ur Specific [place] 1.010, Urine Protein Negative, Urine Glucose (UA) Negative, Urine Ketones Negative, Urine Blood Trace-i, Urine Nitrate Negative, Urine Bilirubin Negative, Urine Urobilinogen 0.2, Ur Leukocyte Esterase Negative, Urine RBC Occasional, Ur Squamous Epith Cells Occasional, Urine Bacteria Trace 05/12/21 22:02: Urine Opiates Screen Negative, Urine Methadone Screen Negative, Ur Barbituates Screen Negative, Ur Phencyclidine Scrn Negative, Ur Amphetamines Screen Negative, U Benzodiazepines Scrn Negative, Urine Cocaine Screen Negative, U Marijuana (THC) Screen Negative 05/13/21 01:02: WBC 15.2 H, RBC 3.47 L, Hgb 10.5 L, Hct 30.6 L, MCV 88.3, MCH 30.3, MCHC 34.3, RDW 14.3, Plt Count 251, MPV 8.9, Neut % (Auto) 80.5 H, Lymph % (Auto) 14.8, [place] % (Auto) 4.1, Eos % (Auto) 0.5, Baso % (Auto) 0.1, Neut # (Auto) 12.2 H, Lymph # (Auto) 2.3, [place] # (Auto) 0.6, Eos # (Auto) 0.1, Baso # (Auto) 0.0, Total Counted 100, Neutrophils % (Manual) 90 H, Lymphocytes % (Manual) 7 L, Monocytes % (Manual) 3, Platelet Estimate Normal, RBC Morphology Normal 05/13/21 01:02: Blood Type A Positive, Antibody Screen Negative I & O for Last 24 hours: Intake & Output 05/10/21 05/11/21 05/12/21 05/13/21 11:59 11:59 11:59 11:59 Weight 256 lb
--- NOTE | 2021-05-28 10:49 | HMH.DCSUM ---
General - General Admission date:: 05/13/21 Discharge date: 05/13/21 HPI HPI: This 30-year-old 3, para 2, Ab0 white female was admitted at 37-3/7 weeks with regular contractions every 2 to 3 minutes. She has had 2 previous vaginal deliveries, after the first of which she experienced a hemorrhage. There have been no complications during this . She is group B strep positive. Hospital Course Hospital Course: This 30-year-old multigravid white female was admitted with regular contractions at 37-4/7 weeks of gestation with history of regular contractions at 1 to 2 cm dilatation. Because of a history of rapid labors, she was admitted and observed for a while, then started on intravenous Pitocin to augment her labor. However, her cervix never dilated further and she made no progress. After discussion with the patient and her partner, along with the fact that she is under 39 weeks of gestation with a reactive nonstress test, it was decided to change course and discharge the patient to await further developments, i.e. more regular contractions, rupture of membranes, or severe pain. She is given instructions to call Dr. Kinney tomorrow morning for follow-up. Rhogam Administration: Not Indicated Objective Vital signs: Temp Pulse Resp BP Pulse Ox 98.2 F 73 16 116/57 L 97 05/13/21 07:15 05/13/21 07:15 05/13/21 07:15 05/13/21 07:15 05/13/21 07:15 no acute distress - *Routine HEENT Exam Head: Present: normocephalic Eye: Present: EOMI, PERRL ENT: Present: mucous membranes moist - *Routine Neck Exam Present: supple - *Routine Respiratory Exam Present: CTA bilaterally - *Routine Cardiovascular Exam Present: RRR - *Routine Abdominal Exam Present: soft, normoactive bowel sounds. Absent: tenderness - *Routine Extremities Exam Absent: cyanosis, clubbing, edema - *Routine Skin Exam Present: warm. Absent: rash - Detailed Eye Exam Eyelids: Bilateral normal inspection DS: Diagnosis - Discharge Diagnosis (1) False labor after 37 weeks of gestation without delivery Status: Acute Discharge Plan - Patient Discharge Instructions ACTIVITY: Bed rest DIET: continue same diet Additional Instructions: Rest and drink plenty of water. Call Dr. Kinney's office tomorrow to schedule appointment. Patient Instructions: Hemorrhage, [facility] Labor, Antepartum Care - Follow up Plan Follow up with: Benedict Kinney MD [Staff Physician] - 05/18/21 9:45 am Disposition: Home, Self-Care Condition at discharge:: Stable Home Medications: Home Medications Medication Instructions Recorded Confirmed Type Ferrous Gluconate [Ferrous 240 mg PO DAILY 05/13/21 05/23/21 History Gluconate 240mg Tab] No122/Iron/Folic Acid 1 tab PO DAILY 05/24/21 05/23/21 History [ Multi Tablet] Prescriptions/Medication Reconciliation: Continued Ferrous Gluconate [Ferrous Gluconate 240mg Tab] 240 mg PO DAILY No Action No122/Iron/Folic Acid [ Multi Tablet] 1 tab PO DAILY - Problem Reconciliation Problems Reviewed?: Yes
== END 2021-05-13 09:00 | disposition home or self-care (01) | DRG 833 ==
LOC: OBOUT 01:26 → OB 06:50
PROVIDERS: Admitting Provider Obstetrics & Gynecology; PCP Internal Medicine Adolescent Medicine; Referring Provider Nurse Practitioner Obstetrics & Gynecology; Visit Provider Obstetrics & Gynecology
DX: O60.03 Preterm labor without delivery, third trimester (principal); Z3A.37 37 weeks gestation of pregnancy
CPT/HCPCS: 59025; 80305; 81001; 85007; 85025; 86850; 96360; 96372; G0378; J0290; U0003

== ENCOUNTER 2021-05-20 19:38 | Outpatient (CLI) | payer OTHER, SELFPAY ==
[2021-05-20 19:47] VITALS: BMI 40.2
[2021-05-20 21:42] VITALS: BP 120/77; PULSE 100; RESP 18; TEMP 36.6; O2SAT 97; BMI 40.2
[2021-05-20 21:46] LABS: Microscopic, Urine URINE MICROSCOPIC (MICROSCOPIC)
[2021-05-20 21:49] LABS: Appearance,Urine CLEAR (Clear); Bilirubin,Urine Negative (Negative); Blood, Urine TRACE-I (Negative); Color,Urine YELLOW (Yellow); Glucose,Urine (UA) Negative (Negative); Ketones,Urine Negative (Negative); Leukocyte Esterase,Urine Negative (Negative); Nitrate,Urine Negative (Negative); PH,Urine 6.5 (5.0-8.5); Protein,Urine Negative (Negative); Specific Gravity, Urine 1.015 (1.005-1.030); Urobilinogen,Urine 0.2 EU/dl (0.2)
[2021-05-20 21:56] LABS: RBC,Urine Occasional #/hpf (0-3); Squamous Epithelial Cell,Urine Occasional #/hpf (0-5)
[2021-05-20 21:57] LABS: Bacteria,Urine Trace /lpf
[2021-05-20 22:01] LABS: Barbiturates Screen,Urine Negative ng/ml (<200)
[2021-05-20 22:02] LABS: Amphetamine/Metha Screen,Urine Negative ng/ml (<1000); Benzodiazepines Screen,Urine Negative ng/ml (<200)
[2021-05-20 22:03] LABS: Cannabinoid Screen,Urine Negative ng/ml (<50)
[2021-05-20 22:04] LABS: Cocaine Screen,Urine Negative ng/ml (<300); Methadone Screen,Urine Negative ng/ml (<300)
[2021-05-20 22:05] LABS: Opiate Screen,Urine Negative ng/ml (<300)
[2021-05-20 22:06] LABS: Phencyclidine Screen,Urine Negative ng/ml (<25)
== END 2021-05-20 22:10 | disposition home or self-care (01) ==
LOC: OBOUT 19:39 → OB 19:39
PROVIDERS: PCP Internal Medicine Adolescent Medicine; Visit Provider Obstetrics & Gynecology
DX: O47.03 False labor before 37 completed weeks of gestation, third trimester (principal); Z3A.38 38 weeks gestation of pregnancy
CPT/HCPCS: 59025; 80305; 81001; 96365; G0463

== ENCOUNTER 2021-05-23 04:41 | Inpatient (IN) | payer OTHER, SELFPAY ==
[2021-05-23 04:47] VITALS: BMI 39.9
[2021-05-23 05:21] VITALS: BP 131/66; PULSE 90; RESP 18; TEMP 36.6; O2SAT 98; BMI 39.9
[2021-05-23 05:28] LABS: Microscopic, Urine URINE MICROSCOPIC (MICROSCOPIC)
[2021-05-23 05:28] LABS: Coronavirus 19, PCR Not Detected (NotDetected); Influenza A, PCR Not Detected (NotDetected); Influenza B, PCR Not Detected (NotDetected)
[2021-05-23 05:31] LABS: Basophils % 0.3 % (0.1-2.0); Eosinophils # 0.1 K/mm3 (0.0-0.4); Eosinophils % 0.9 % (0.1-12.0); Hematocrit 33.2 % (37.0-47.0); Hemoglobin 11.4 g/dL (12.2-16.2); Lymphocytes # 2.8 K/mm3 (0.7-4.5); Lymphocytes % 22.6 % (10-50); Mean Corpuscular HGB Conc 34.3 g/dL (31.8-35.4); Mean Corpuscular Hemoglobin 30.7 pg (27.0-31.2); Mean Corpuscular Volume 89.5 fl (81-99); Mean Platelet Volume 8.2 fl (7.4-10.4); Monocytes # 0.6 K/mm3 (0.1-1.0); Monocytes % 4.6 % (1.7-9.3); Neutrophils # 8.9 K/mm3 (1.8-7.8); Neutrophils % 71.6 % (37.0-80.0); Platelet Count 335 K/mm3 (142-424); Red Blood Count 3.71 M/mm3 (4.20-5.40); Red Cell Distribution Width 14.7 % (11.5-17.5); White Blood Count 12.4 K/mm3 (4.8-10.8)
[2021-05-23 05:36] LABS: Appearance,Urine CLEAR (Clear); Bilirubin,Urine Negative (Negative); Blood, Urine TRACE-I (Negative); Color,Urine YELLOW (Yellow); Glucose,Urine (UA) Negative (Negative); Ketones,Urine Negative (Negative); Leukocyte Esterase,Urine Negative (Negative); Nitrate,Urine Negative (Negative); Protein,Urine Negative (Negative); Urobilinogen,Urine 0.2 EU/dl (0.2)
[2021-05-23 05:47] LABS: Benzodiazepines Screen,Urine Negative ng/ml (<200)
[2021-05-23 05:48] LABS: Amphetamine/Metha Screen,Urine Negative ng/ml (<1000); Barbiturates Screen,Urine Negative ng/ml (<200)
[2021-05-23 05:49] LABS: Cannabinoid Screen,Urine Negative ng/ml (<50)
[2021-05-23 05:50] LABS: Cocaine Screen,Urine Negative ng/ml (<300); Methadone Screen,Urine Negative ng/ml (<300)
[2021-05-23 05:51] LABS: Opiate Screen,Urine Negative ng/ml (<300)
[2021-05-23 05:52] LABS: Phencyclidine Screen,Urine Negative ng/ml (<25)
[2021-05-23 06:00] LABS: Bacteria,Urine 1+ /lpf; Mucus,Urine 1+ /lpf
--- NOTE | 2021-05-23 09:19 | HMH.LABNOT ---
Labor Note - Subjective: Date: 05/23/21 Time: 09:19 regular contraction - Objective: NST:: Reactive Contractions:: every 2-3 minutes Cervical Dilation:: 2 Effacement:: 50% Station: -2 Membranes: artificially ruptured Comment:: I ruptured her membranes and there was clear fluid. - Fetus: Monitoring?: Yes monitoring type:: External - Assessment: Labor progressing?: Yes Cephalopelvic disproportion?: No Patient Problems: All Active Problems (Acute) Abnormal vaginal bleeding (Acute) - Plan: Anesthesia for epidural?: No Continue to labor down?: Yes Plan for ?: No Continue to monitor?: Yes Start pushing?: No
--- NOTE | 2021-05-23 09:20 | HMH.OBAPHP ---
OB - H&P: HPI Antepartum - History of Present Illness Chief complaint: Term History of present illness: She is a 30-year-old 3 para 2 at 39 weeks gestational age. She is feeling pressure as well as discomfort and as result of that we have offered her induction of labor at term. - History of Present Criteria for establishing EDC:: LMP confirmed by 1st trimester US care: good care Ultrasounds: normal 1st trimester US, normal mid trimester US Obstetrical complications: none Medical complications: none - Labs GBS status: positive [facility] History I have reviewed the patient's past medical history: Yes Medical History: Denies:: Cancer, Diabetes Mellitus Type 1, Diabetes Mellitus Type 2, MRSA, Seizures *Have you ever received a pneumonia vaccine?: No *Have you received a flu vaccine this season?: No Other Medical History: Reports: Other. Denies: Blood Transfusion Reaction Other Surgeries: Yes: Cholecystectomy, Diagnostic Lap, Other. No: Amputation: No Fractures: No - *Social History Smoking Status: Current every day smoker Tobacco Type: cigarettes # Packs/Day (cigarettes): 1 Alcohol Intake: never Alcohol Intake Frequency:: other Substance Use Type: denies use *Occupational Status:: unemployed Household Members: family *Travel in the last 8 weeks: None Family Hx:: No significant family history Para: 2 Review of Systems - Review of Systems Review of systems:: pertinent systems reviewed and negative unless documented below Meds Home Medications Medication Instructions Recorded Confirmed Type vit 122-ferrous fumarate 1 tab PO DAILY #30 tab 10/17/20 05/23/21 Rx 27 mg iron-folic acid 800 mcg tablet Ferrous Gluconate [Ferrous 240 mg PO DAILY 05/13/21 05/23/21 History Gluconate 240mg Tab] Allergies Allergy/AdvReac Type Severity Reaction Status Date / Time No Known Allergies Allergy Verified 05/18/21 10:09 OB - H&P: Exam - Physical Exam Vital signs: Temp Pulse Resp BP Pulse Ox 97.9 F 90 18 131/66 98 05/23/21 05:21 05/23/21 05:21 05/23/21 05:21 05/23/21 05:05/23/21 05:21 - Constitutional no acute distress - Routine HEENT Exam Head: Present: normocephalic Eye: Present: EOMI, PERRL ENT: Present: mucous membranes moist - Routine Neck Exam Present: supple, full ROM - Routine Respiratory Exam Absent: accessory muscle use (good air entry bilaterally), respiratory distress, wheezes, crackles - Routine Cardiovascular Exam Present: RRR. Absent: murmur - Routine Abdominal Exam Present: soft, normoactive bowel sounds. Absent: tenderness, distended, guarding - Routine Rectal Exam Patient deferred: visual exam, digital exam - Routine Exam Patient deferred: external exam, groin exam, perineal exam - Routine Extremities Exam Present: full ROM. Absent: cyanosis, edema - Routine Skin Exam Present: intact. Absent: cyanosis - Routine Neurological Exam Present: alert, oriented X3 - Routine Psychiatric Exam Present: normal affect OB - Results - Labs Labs: Short CBC 05/23/21 Range/Units 05:10 WBC 12.4 H (4.8-10.8) K/mm3 Hgb 11.4 L (12.2-16.2) g/dL Hct 33.2 L (37.0-47.0) % Plt Count 335 (142-424) K/mm3 Urine 05/23/21 Range/Units 05:10 Urine Color Yellow (Yellow) Urine Appearance Clear (Clear) Urine pH 7.0 (5.0-8.5) Ur Specific [place] 1.010 (1.005-1.030) Urine Protein Negative (Negative) Urine Glucose (UA) Negative (Negative) OB - A/P Antepartum (1) Normal delivery Status: Acute - Additional Plan Planning to breastfeed?: No Plan: induction Additional Information:: She is at term and we have ruptured her membranes. She is on oxytocin. We will expect a vaginal delivery. She does have group B strep and we have started her on IV antibiotics.
--- NOTE | 2021-05-23 11:52 | HMH.LABNOT ---
Labor Note - Subjective: Date: 05/23/21 Time: 11:52 regular contraction - Objective: NST:: Reactive Contractions:: every 2-3 minutes Cervical Dilation:: 2 Effacement:: 50% Station: -3 Membranes: artificially ruptured - Fetus: Monitoring?: Yes monitoring type:: External - Assessment: Labor progressing?: No Cephalopelvic disproportion?: No Patient Problems: All Active Problems Normal delivery (Acute) (Acute) Abnormal vaginal bleeding (Acute) - Plan: Anesthesia for epidural?: No Continue to labor down?: Yes Plan for ?: No Continue to monitor?: Yes Start pushing?: No
--- NOTE | 2021-05-23 14:00 | HMH.LABNOT ---
Labor Note - Subjective: Date: 05/23/21 Time: 14:00 regular contraction - Objective: NST:: Reactive Contractions:: every 2-3 minutes Cervical Dilation:: 4 Effacement:: 75% Station: -1 Membranes: artificially ruptured - Fetus: Monitoring?: Yes monitoring type:: External - Assessment: Labor progressing?: Yes Cephalopelvic disproportion?: No Patient Problems: All Active Problems Normal delivery (Acute) (Acute) Abnormal vaginal bleeding (Acute) - Plan: Anesthesia for epidural?: No Continue to labor down?: Yes Plan for ?: No Continue to monitor?: Yes Start pushing?: No
[2021-05-23 15:20] VITALS: RESP 18
--- NOTE | 2021-05-23 16:25 | HMH.LABNOT ---
Labor Note - Subjective: Date: 05/23/21 Time: 16:25 regular contraction - Objective: NST:: Reactive Contractions:: every 2-3 minutes Cervical Dilation:: 6-7 Effacement:: 100% Membranes: artificially ruptured - Fetus: Monitoring?: Yes monitoring type:: External - Assessment: Labor progressing?: Yes Cephalopelvic disproportion?: No Patient Problems: All Active Problems Normal delivery (Acute) (Acute) Abnormal vaginal bleeding (Acute) - Plan: Anesthesia for epidural?: No Continue to labor down?: Yes Plan for ?: No Continue to monitor?: Yes Start pushing?: No
[2021-05-23 17:14] VITALS: RESP 18
--- NOTE | 2021-05-23 17:34 | P.PCN_ITS ---
- Delivery Note Delivery Date:: 05/23/21 Delivery Time:: 17:04 Anesthesia Type: None Was labor medically induced?: Yes Induction method: per pitocin protocol Gestational age (weeks): 39 Infant delivered prior to 39 weeks?: No Infant Gender: Male at 1 minute: 8 at 5 minutes: 9 LAC or MLE?: LAC Delivery Procedure:: She is a 30-year-old 3 para 2 lady at 39 weeks gestational age. She has had pressure and discomfort. As result of that we elected to induce her labor at term. She was started on IV oxytocin had her membranes ruptured. She progressed to full dilation and delivered spontaneously a liveborn male child at 5:04 PM in the afternoon May 23, 2021. On deliver the head the anterior shoulder then delivered followed by the rest the infant's body atraumatically. We allowed the cord to continue to pulsate for approximately 1 minute. The baby was vigorous. The oropharynx and nasopharynx were bulb suction. The cord was then doubly clamped and cut and the was placed on the mother's abdomen for further care. The nurses assigned Apgars of 8 at 1 minute and 9 at 5 minutes. We then obtained cord blood as well as cord pH. She received IV oxytocin using gentle traction on the cord and countertraction on the fundus I was able to easily deliver the placenta intact at 5:07 PM. He had a normal three-vessel cord. She had a second-degree perineal laceration that was repaired in the usual fashion with 3-0 Vicryl Rapide suture to the superficial tissues and 2-0 Vicryl suture to the deep tissues of the perineum. She was group B streptococcus positive and did receive IV antibiotics while in labor. Her estimated blood loss was approximately 400 cc. Her dictating machine transcriber is Dr. Atkinson. Laceration:: vaginal Placental Delivery Description: Spontaneous
[2021-05-23 17:43] LABS: Cord Blood PH 7.43 (7.35-7.45)
[2021-05-23 20:12] VITALS: BP 124/58; PULSE 72; RESP 17; TEMP 36.9; O2SAT 97
[2021-05-24 03:52] VITALS: BP 115/57; PULSE 65; RESP 16; TEMP 36.9; O2SAT 96
[2021-05-24 06:45] LABS: Hematocrit 28.8 % (37.0-47.0); Hemoglobin 9.8 g/dL (12.2-16.2)
--- NOTE | 2021-05-24 08:22 | HMH.ACPN2 ---
Internal Medicine - PN: Subj *Date: 05/24/21 *Time: 08:22 Interval history: She is doing very well this morning. We will plan to send her home tomorrow. Exam Vital signs and Labs for Last 24 Hours: Temp Pulse Resp BP Pulse Ox 98.4 F 65 16 115/57 L 96 05/24/21 03:52 05/24/21 03:52 05/24/21 03:52 05/24/21 03:52 05/24/21 03:52 Laboratory Results - last 24 hr 05/23/21 17:39: Cord ABG pH 7.43 05/24/21 06:20: Hgb 9.8 L, Hct 28.8 L I & O for Last 24 hours: Intake & Output 05/21/21 05/22/21 05/23/21 05/24/21 11:59 11:59 11:59 11:59 Weight 255 lb - Constitutional no acute distress Assessment and Plan (1) Normal delivery Status: Acute Category: Medical Code(s): O80 - Encounter for full-term uncomplicated delivery - Assessment and plan all Dx Assessment and Plan for all problems:: She continues to do very well. We will see her back again in the morning and plan to send her home tomorrow.
--- NOTE | 2021-05-24 11:25 | HMH.DCSUM ---
General - General Admission date:: 05/23/21 Discharge date: 05/24/21 HPI HPI: IOL @ 39 wks Uncomplicated maternal course uneventful tolerating regular diet, ambulating and voiding without difficulty infant is being transferred to and mother requesting discharge on PPD #1 in order to be with baby clinically stable for discharge Objective Vital signs: Temp Pulse Resp BP Pulse Ox 98.4 F 65 16 115/57 L 96 05/24/21 03:52 05/24/21 03:52 05/24/21 03:52 05/24/21 03:52 05/24/21 03:52 Narrative: CONSTITUTIONAL: no acute distress HEENT: mucous membranes moist PULMONARY: breathing unlabored without audible wheezes CV: no tachycardia or visible JVD; normal LE peripheral pulses ABD: soft, NT/ND, no guarding : fundus firm below umbilicus SKIN: no visible rash or lesions EXT: 1+ edema LEs NEURO: alert/oriented, no altered mental status PSYCH: appropriate mood and demeanor Results Labs on day of discharge: Labs from last 24 hours 05/24/21 05/23/21 06:20 17:39 Hgb 9.8 L Hct 28.8 L Cord ABG pH 7.43 DS: Diagnosis - Discharge Diagnosis (1) Normal delivery Status: Acute Discharge Plan - Patient Discharge Instructions ACTIVITY: Continue current activity DIET: regular diet Additional Instructions: Nothing in the vagina for 6 weeks No heavy lifting Drink plenty of fluids Patient Instructions: Depression, Hemorrhage, DI for Labor and Delivery, Vaginal , DI for Pre-eclampsia, [facility] Post Discharge Instructions, Preventing the Spread of Coronavirus Discharge Instructions - Follow up Plan Follow up with: Benedict Kinney MD [Staff Physician] - 06/08/21 10:30 am Disposition: Home, Self-Care Condition at discharge:: Stable Home Medications: Home Medications Medication Instructions Recorded Confirmed Type Ferrous Gluconate [Ferrous 240 mg PO DAILY 05/13/21 05/23/21 History Gluconate 240mg Tab] No122/Iron/Folic Acid 1 tab PO DAILY 05/24/21 05/23/21 History [ Multi Tablet] Prescriptions/Medication Reconciliation: New Acetaminophen [Acetaminophen 325mg tab] 650 mg PO Q4HP PRN tablet PRN Reason: Mild Pain Ibuprofen [Motrin 400mg tablet] 800 mg PO Q6HP PRN tablet PRN Reason: Mild To Moderate Pain Continued No122/Iron/Folic Acid [ Multi Tablet] 1 tab PO DAILY Ferrous Gluconate [Ferrous Gluconate 240mg Tab] 240 mg PO DAILY - Problem Reconciliation Problems Reviewed?: Yes
== END 2021-05-24 11:35 | disposition home or self-care (01) | DRG 806 ==
PROVIDERS: Admitting Provider Nurse Practitioner Obstetrics & Gynecology; PCP Internal Medicine Adolescent Medicine; Visit Provider Nurse Practitioner Obstetrics & Gynecology
DX: O70.1 Second degree perineal laceration during delivery (principal); O98.82 Other maternal infectious and parasitic diseases complicating childbirth; Z37.0 Single live birth; Z3A.39 39 weeks gestation of pregnancy; B95.1 Streptococcus, group B, as the cause of diseases classified elsewhere
CPT/HCPCS: 59409; 59025; 80305; 81001; 82800; 85014; 85018; 85025; 86850; 94761; G0283; J0290; J0595; U0003

== ENCOUNTER 2022-02-26 10:59 | Emergency (ER) | payer OTHER, SELFPAY ==
[2022-02-26 13:14] VITALS: BP 142/86; PULSE 86; RESP 19; TEMP 37.1; O2SAT 100; BMI 38.8
[2022-02-26 13:15] LABS: UTC Influenza A Antigen Negative (Negative)
[2022-02-26 13:16] LABS: UTC Influenza B Antigen Negative (Negative)
--- NOTE | 2022-02-26 13:26 | HMH.EDUTC ---
[facility] Disposition Clinical Impression: Flu-like symptoms Disposition: Home, Self-Care Condition on Discharge: Good Instructions: Influenza, DI for Influenza -- Adult, Oseltamivir Additional Instructions: ? Start Tamiflu today if you are going to take it. Discussed risk and possible benefits. ? Lots of rest ? Increase Fluids water, Gatorade, powerade, pedialyte,if /toddler/child ? Alternate Tylenol and / or ibuprofen as discussed for fever, aches, chills Follow up IMMEDIATELY with your family doctor for new or worsening Symptoms OR no noticeable improvement over the next 48-72 hours, 911 for difficulty or breathing ? You or your child area contagious until no fever, aches, chills for 24 hours with medication for symptoms ? Help Prevent the spread of influenza: ? Wash your hands often. Use soap and water. Wash your hands after you use the bathroom, change a child's diapers, or sneeze. Wash your hands before you prepare or eat food. Use gel hand cleanser that has 60% alcohol, when soap and water are not available. Do not touch your eyes, nose, or mouth unless you have washed your hands first. ? Cover your mouth when you sneeze or cough. Cough into a tissue or the bend of your arm. If you use a tissue, throw it away immediately and wash your hands. ? Clean shared items with a germ-killing body cleaner. Clean table surfaces, doorknobs, and light switches. Do not share towels, silverware, and dishes with people who are sick. Wash bed sheets, towels, silverware, and dishes with soap and water. ? Wear a mask over your mouth and nose if you are sick. The face mask may help protect others from becoming infected with the flu. Wear the mask when in common areas of your home or if you seek care with a healthcare provider. ? Stay away from others if you are sick. Stay at home until 24 hours after your fever and symptoms are gone. Prescriptions: Brompheniramine/Pseudoephed/Dm [Bromfed Dm Cough Syrup] 5 - 10 ml PO Q4-6H PRN #150 ml PRN Reason: Cough Transmission Status: Pending to [facility] Oseltamivir Phosphate [Tamiflu 75mg Capsule] 75 mg PO BID #10 cap Transmission Status: Pending to [facility] Referrals: Sherron Joyce APRN [Primary Care Provider] - As needed Time of Disposition: 13:27 Medical Decision Making - Laz Inquiry Pt receiving controlled substance: No Laz was queried for this patient: No Vital Signs: 02/26/22 13:14 Temperature 98.8 F Temperature Source Oral Pulse Rate [Left] 86 Respiratory Rate 19 Blood Pressure [Right Arm] 142/86 H Blood Pressure Mean [Right Arm] 104 02 Sat by Pulse Oximetry 100 - Lab Data Lab results reviewed: Yes: I reviewed the patient's lab results. Lab Results 02/26/22 13:07: Influenza Type A Ag Negative, Influenza Type B Ag Negative Medical Decision Narrative: denies chance of [facility] HPI - General Stated complaint: sore throat, cough, fever Time Seen by Provider: 02/26/22 13:26 Mode of Arrival: Ambulatory Source of Information: Patient Limitations: No Limitations Description of Symptoms (Recalled from Triage Doc. by RN): pt c/o a chest discomfort with coughing, sore throat, and fever HEENT Symptoms (Recalled from RN notes): Yes Resp Symptoms (Recalled from RN notes): Yes Skin Symptoms (Recalled from RN notes): No MS Symptoms (Recalled from RN notes): No Functional Status (Recalled from RN notes): wnl - History of Present Illness Provider Complaint: Patient states that she has been having sore throat, burning in throat with cough, and cough State that family member that tested positive for Flu and she was worried that they may have it too - Related Data Home Medications Medication Instructions Recorded Confirmed Ferrous Gluconate [Ferrous 240 mg PO DAILY 05/13/21 07/06/21 Gluconate 240mg Tab] No122/Iron/Folic Acid 1 tab PO DAILY 05/24/21 07/06/21 [ Multi Tablet] Previous Rx's Medicatio
[2022-02-26 13:36] VITALS: BP 142/86; PULSE 86; RESP 19; TEMP 37.1
== END 2022-02-26 13:37 | disposition home or self-care (01) ==
PROVIDERS: Emergency Provider Nurse Practitioner; PCP Nurse Practitioner Family
DX: J11.1 Influenza due to unidentified influenza virus with other respiratory manifestations (principal); F17.210 Nicotine dependence, cigarettes, uncomplicated
CPT/HCPCS: 87804; 99212; G0463

== ENCOUNTER 2023-02-12 12:09 | Emergency (ER) | payer OTHER, SELFPAY ==
[2023-02-12 12:20] VITALS: BP 147/81; PULSE 90; RESP 20; TEMP 37.2; O2SAT 98; BMI 34.9
--- NOTE | 2023-02-12 12:33 | EXP.UTC ---
Discharge Plan Disposition Patient Disposition: Home, Self-Care Condition: Good Prescriptions Prescriptions: New amoxicillin [amoxicillin] 875 mg tablet 875 mg PO Q12H Qty: 20 0RF xkdspsjnfqeouhn-jwhbhsqzd-WX [Bromfed DM] 2-30-10 mg/5 mL Syrup 5 ml PO Q6H PRN (Reason: Cough) Qty: 240 0RF prednisone 10 mg tablet 10 mg PO BID 3 Days Qty: 6 0RF No Action oseltamivir 75 MG capsule 75 mg PO BID Qty: 10 0RF xfvhuxqmacgivse-izmghhxxj-IC 118 ML syrup 5 - 10 ml PO Q4-6H PRN (Reason: Cough) Qty: 150 0RF ferrous gluconate 240 MG tablet 240 mg PO DAILY [id number] acid 1 EACH tablet 1 tab PO DAILY Referrals Follow up/Referrals: Mookie Lim MD [Primary Care Provider] - See instructions Activity Restrictions/Add. Instructions Additional Instructions/Restrictions: Drink plenty of fluids. Take tylenol or ibuprofen for pain or fever. Take the medications as directed. Follow up with your regular doctor. GO TO THE ER FOR ANY WORSENING SYMPTOMS Throw your tooth brush away and get a new one. Clinical Impressions Clinical Impression: Strep throat Stand Alone Forms Stand Alone Forms: Work/School Release Instructions Patient Instructions: DI for Strep Throat Discharge ED Provider: Ok Wan [facility] General Stated complaint: sore throat, body aches, lung pain Mode of Arrival: Ambulatory Source of Information: Patient Limitations: No Limitations Time Seen by Provider: 02/12/23 12:33 Description of Symptoms (Recalled from Triage Doc. by RN): sore throat, body aches, lung/chest pain when she breaths, and low grade fever HEENT Symptoms (Recalled from RN notes): Yes Resp Symptoms (Recalled from RN notes): No Skin Symptoms (Recalled from RN notes): No MS Symptoms (Recalled from RN notes): No Functional Status (Recalled from RN notes): n/a History of Present Illness Provider Complaint: She states that for the past 2 days she has had a sore throat, chills, low grade fever, and a cough. Related Data Home Medications Medication Instructions Recorded Confirmed ferrous gluconate 240 mg (27 mg 240 mg PO DAILY Supplement 05/13/21 07/06/21 iron) tablet vit 122-ferrous fumarate 1 tab PO DAILY Supplement 05/24/21 07/06/21 27 mg iron-folic acid 800 mcg tablet Previous Rx's Medication Instructions Recorded taevgpagxghqrxs-tmjxjebryocbayf-DL 5 - 10 ml PO Q4-6H PRN Cough #150 02/26/22 2 mg-30 mg-10 mg/5 mL oral syrup mL oseltamivir 75 mg capsule 75 mg PO BID #10 caps 02/26/22 amoxicillin 875 mg tablet 875 mg PO Q12H #20 tabs 02/12/23 wfdwgsxbsrpqvcd-tngfrjfmmfidcwe-LT 5 ml PO Q6H PRN Cough #240 mL 02/12/23 2 mg-30 mg-10 mg/5 mL oral syrup (Bromfed DM) prednisone 10 mg tablet 10 mg PO BID 3 days #6 tabs 02/12/23 Allergies Allergy/AdvReac Type Severity Reaction Status Date / Time No Known Allergies Allergy Verified 02/12/23 12:30 Worker's Comp Is this a Worker's Comp case?: No [facility] Disclaimer: The information contained in this section may have been updated after the patient was seen, as this information can be updated by other users. Social History Smoking Status: Current every day smoker tobacco type: cigarettes packs per day: 1 alcohol intake: never substance use type: denies use current occupational status: unemployed Travel in the last 8 weeks: None household members: family ROS Obtained: Yes All systems reviewed & no additional complaints except as documented Constitutional Constitutional: Reports chills and Reports fever(s) Eyes Eyes: Denies eye discharge ENT Ears, Nose, Mouth, and Throat: Reports as per HPI Cardiovascular Cardiovascular: Denies chest pain Respiratory Respiratory: Denies chest congestion and Reports cough Gastrointestinal Gastrointestingal: Reports nausea; Denies abdominal pain, constipation, cramping, diarrhea or vo
[2023-02-12 12:42] LABS: UTC Strep Screen (Rapid) Positive (Negative)
[2023-02-12 13:20] VITALS: BP 147/81; PULSE 90; RESP 20; TEMP 37.2; O2SAT 98
== END 2023-02-12 13:20 | disposition home or self-care (01) ==
PROVIDERS: Emergency Provider Nurse Practitioner Family; PCP Internal Medicine Adolescent Medicine
DX: R07.1 Chest pain on breathing (principal); J02.0 Streptococcal pharyngitis; R50.9 Fever, unspecified; F17.210 Nicotine dependence, cigarettes, uncomplicated
CPT/HCPCS: 87880; 99212; 99214; G0463

== ENCOUNTER → 2023-07-10 11:13 | Outpatient (CLI) | payer OTHER, SELFPAY ==
[2023-07-10 11:41] LABS: Basophils % 0.6 % (0.1-2.0); Eosinophils # 0.1 K/mm3 (0.0-0.4); Eosinophils % 1.6 % (0.1-12.0); Hematocrit 40.8 % (37.0-47.0); Hemoglobin 13.1 g/dL (12.2-16.2); Lymphocytes # 1.5 K/mm3 (0.7-4.5); Mean Corpuscular Hemoglobin 28.2 pg (27.0-31.2); Mean Corpuscular Volume 88.2 fl (81-99); Mean Platelet Volume 9.2 fl (7.4-10.4); Monocytes # 0.3 K/mm3 (0.1-1.0); Monocytes % 5.3 % (1.7-9.3); Neutrophils # 3.2 K/mm3 (1.8-7.8); Neutrophils % 62.6 % (37.0-80.0); Platelet Count 256 K/mm3 (142-424); Red Blood Count 4.62 M/mm3 (4.20-5.40); Red Cell Distribution Width 13.3 % (11.5-17.5); White Blood Count 5.1 K/mm3 (4.8-10.8)
[2023-07-10 13:04] LABS: Alanine Aminotransferase 17 U/L (12-78); Albumin/Globulin Ratio 1.4 (1.1-1.8); Alkaline Phosphatase 103 U/L (38-126); Anion Gap 9.4 mEq/L (5-15); Aspartate Amino Transferase 21 U/L (14-36); Bilirubin,Total 0.3 mg/dl (0.2-1.3); Blood Urea Nitrogen 6 mg/dl (7-17); Calcium 9.4 mg/dl (8.4-10.2); Carbon Dioxide 26 mmol/L (22.0-30.0); Chloride 109 mmol/L (98-107); Estimated Glomerular Filt Rate 96 ml/min (>60); GFR (African American) 117 ML/MIN (>60); Globulin 2.9 g/dL (1.3-3.2); Glucose 85 mg/dl (74-100); Potassium 4.4 mmoL/L (3.5-5.1); Sodium 140 mmol/L (136-145); Total Protein,Serum 6.9 g/dl (6.3-8.2)
[2023-07-10 13:19] LABS: Free Thyroxine Index 2.9 ug/dL (5.93-13.13); T4 (Thyroxine) 8.3 ug/dl (5.53-11.0); Triiodothryronine (T3) Uptake 35 % (23.5-40.5)
[2023-07-10 13:33] LABS: Thyroid Stimulating Hormone 0.82 uIU/mL (0.465-4.68)
== END ==
PROVIDERS: PCP Nurse Practitioner Family; Visit Provider Nurse Practitioner Obstetrics & Gynecology
DX: Z01.419 Encounter for gynecological examination (general) (routine) without abnormal findings (principal)
CPT/HCPCS: 36415; 80053; 84436; 84443; 84479; 85025

== ENCOUNTER → 2023-07-24 14:43 | Outpatient (CLI) | payer OTHER, SELFPAY ==
--- NOTE | 2023-07-24 14:43 | US_ITS ---
PROCEDURE: US TRANSVAGINAL CLINICAL INDICATION: pelvic pain Menorrhagia COMPARISON: No exams were available for comparison FINDINGS: Transvaginal sonographic images of the pelvis were obtained. UTERUS: 8.3 cm x 5.9 cmx 5.1 cm with a combined endometrial thickness of 17.3 mm. Retroverted and retroflexed. There is a 7.2 mm nabothian cyst. LEFT OVARY: 1.5 cmx2.2 cmx1.3 cm with a volume of 2.1ml.Left ovary has a polycystic appearance. RIGHT OVARY: 2.6 cmx 1.4 cmx1.6 cm with a volume of 2.9ml. Both ovaries are seen and appear normal. Doppler flow to both ovaries are seen. There is trace fluid in the cul-de-sac. IMPRESSION: 1. Uterus is retroverted and retroflexed and normal in shape and size. The endometrium is thickened at 17.3 mm. 2. Both ovaries are seen and appear normal. The left ovary has a polycystic appearance. 3. There is trace fluid in the cul-de-sac. Dictated by: Benedict Kinney MD 07/25/2023 11:20 Benedict Kinney MD in OV 07/25/2023 11:20
== END ==
PROVIDERS: PCP Nurse Practitioner Family; Visit Provider Nurse Practitioner Obstetrics & Gynecology
DX: R10.2 Pelvic and perineal pain (principal)
CPT/HCPCS: 76830

== ENCOUNTER 2023-07-28 08:32 | Emergency (ER) | payer OTHER, SELFPAY ==
[2023-07-28 08:45] VITALS: BP 121/74; PULSE 80; RESP 22; TEMP 36.7; O2SAT 98; BMI 32.4
--- NOTE | 2023-07-28 08:56 | EXP.UTC ---
Discharge Plan Disposition Patient Disposition: Home, Self-Care Condition: Good Prescriptions Prescriptions: New ejfrgqzijvskkgp-maygkibzp-WM [Bromfed DM] 2-30-10 mg/5 mL Syrup 5 ml PO Q6H PRN (Reason: Cough) Qty: 240 0RF amoxicillin [amoxicillin] 875 mg tablet 875 mg PO Q12H Qty: 20 0RF methylprednisolone 4 mg Tablets,Dose Pack 4 mg PO DIRECTED Qty: 21 0RF Referrals Follow up/Referrals: Mookie Lim MD [Primary Care Provider] - See instructions Activity Restrictions/Add. Instructions Additional Instructions/Restrictions: Drink plenty of fluids. Take tylenol or ibuprofen for pain or fever. Take the medications as directed. Follow up with your regular doctor. GO TO THE ER FOR ANY WORSENING SYMPTOMS Clinical Impressions Clinical Impression: Pharyngitis, Acute viral syndrome Stand Alone Forms Stand Alone Forms: Work/School Release Instructions Patient Instructions: DI for Pharyngitis/Tonsillopharyngitis -- Adult Discharge ED Provider: Ok Wan [facility] General Stated complaint: sore throat Time Seen by Provider: 07/28/23 08:55 History of Present Illness Provider Complaint: She states that for the past 2 days she has had a very sore throat, chills, and malaise. She has been exposed to strep and covid Related Data Previous Rx's Medication Instructions Recorded amoxicillin 875 mg tablet 875 mg PO Q12H #20 tabs 07/28/23 mmxootkrffvtjse-cfnkoatkyrdagmd-PB 5 ml PO Q6H PRN Cough #240 mL 07/28/23 2 mg-30 mg-10 mg/5 mL oral syrup (Bromfed DM) methylprednisolone 4 mg tablets in 4 mg PO DIRECTED #21 tabs 07/28/23 a dose pack Allergies Allergy/AdvReac Type Severity Reaction Status Date / Time No Known Allergies Allergy Verified 07/10/23 10:09 [facility] Disclaimer: The information contained in this section may have been updated after the patient was seen, as this information can be updated by other users. Medical History (Updated 07/28/23 @ 09:20 by Ok Wan APRN) Endometriosis Surgical History (Updated 07/10/23 @ 10:14 by JOHNATHAN Merchant) H/O laparoscopy S/P cholecystectomy Family History (Updated 07/10/23 @ 10:15 by JOHNATHAN Merchant) Grandmother Cancer Grandfather Cancer Social History Smoking Status: Current every day smoker tobacco type: cigarettes packs per day: 1 alcohol intake: never substance use type: denies use current occupational status: unemployed Travel in the last 8 weeks: None household members: family ROS Obtained: Yes All systems reviewed & no additional complaints except as documented Constitutional Constitutional: Reports chills and Reports fever(s) Eyes Eyes: Denies eye discharge ENT Ears, Nose, Mouth, and Throat: Reports as per HPI Cardiovascular Cardiovascular: Denies chest pain Respiratory Respiratory: Denies chest congestion and Reports cough Gastrointestinal Gastrointestingal: Reports nausea; Denies abdominal pain, constipation, cramping, diarrhea or vomiting Musculoskeletal Musculoskeletal: Denies arthralgias Integumentary/Breasts Skin/Breast: Denies rash Neurologic Neurologic: Denies paresthesias Physical Exam General General appearance: alert and in no apparent distress Head Head exam: atraumatic, normocephalic and normal inspection Eye Eye exam: Present normal appearance, PERRL and EOMI ENT ENT exam: Present mucous membranes moist and normal external ear exam Expanded ENT Exam TM/Canal exam: Bilateral TM: erythema and bulging Nose exam: Absent sinus tenderness Mouth exam: Present normal external inspection; Absent drooling Teeth exam: Present normal inspection Throat exam: Present tonsillar erythema, tonsillomegaly and tonsillar exudate Neck Neck exam: Present normal inspection, full ROM and trachea midline; Absent tenderness, meningismus or lymphadenopathy Chest Chest inspection: Present normal inspection and symmetr
[2023-07-28 09:12] LABS: UTC Strep Screen (Rapid) Negative (Negative)
[2023-07-28 09:20] VITALS: BP 121/74; PULSE 80; RESP 22; TEMP 36.7; O2SAT 98
== END 2023-07-28 09:29 | disposition home or self-care (01) ==
PROVIDERS: Emergency Provider Nurse Practitioner Family; PCP Internal Medicine Adolescent Medicine
DX: J02.9 Acute pharyngitis, unspecified (principal); B34.9 Viral infection, unspecified; R53.81 Other malaise; F17.210 Nicotine dependence, cigarettes, uncomplicated; Z20.822 Contact with and (suspected) exposure to COVID-19
CPT/HCPCS: 87880; 99212; 99214; G0463

== ENCOUNTER → 2023-08-25 06:59 | Outpatient (CLI) | payer OTHER, SELFPAY ==
[2023-08-25 07:12] LABS: Basophils # 0.1 K/mm3 (0-0.2); Basophils % 2.3 % (0.1-2.0); Eosinophils # 0.1 K/mm3 (0.0-0.4); Eosinophils % 2.7 % (0.1-12.0); Hematocrit 41.5 % (37.0-47.0); Hemoglobin 13.2 g/dL (12.2-16.2); Mean Corpuscular HGB Conc 31.8 g/dL (31.8-35.4); Mean Corpuscular Hemoglobin 28.3 pg (27.0-31.2); Mean Corpuscular Volume 89.1 fl (81-99); Mean Platelet Volume 8.4 fl (7.4-10.4); Monocytes # 0.2 K/mm3 (0.1-1.0); Monocytes % 4.1 % (1.7-9.3); Neutrophils # 2.5 K/mm3 (1.8-7.8); Neutrophils % 50.9 % (37.0-80.0); Platelet Count 256 K/mm3 (142-424); Red Blood Count 4.66 M/mm3 (4.20-5.40); Red Cell Distribution Width 13.7 % (11.5-17.5); White Blood Count 4.9 K/mm3 (4.8-10.8)
[2023-08-25 07:31] LABS: Alanine Aminotransferase 21 U/L (12-78); Albumin Level 3.8 g/dl (3.5-5.0); Albumin/Globulin Ratio 1.4 (1.1-1.8); Alkaline Phosphatase 78 U/L (38-126); Aspartate Amino Transferase 22 U/L (14-36); Bilirubin,Total 0.2 mg/dl (0.2-1.3); Blood Urea Nitrogen 8 mg/dl (7-17); Calcium 8.9 mg/dl (8.4-10.2); Carbon Dioxide 26 mmol/L (22.0-30.0); Chloride 110 mmol/L (98-107); Estimated Glomerular Filt Rate 83 ml/min (>60); GFR (African American) 100 ML/MIN (>60); Globulin 2.8 g/dL (1.3-3.2); Glucose 95 mg/dl (74-100); Sodium 142 mmol/L (136-145); Total Protein,Serum 6.6 g/dl (6.3-8.2)
[2023-08-25 08:36] LABS: HCG,Quantitative < 2 mIU/ml (0-5.42)
== END ==
PROVIDERS: PCP Internal Medicine Adolescent Medicine; Visit Provider Nurse Practitioner Obstetrics & Gynecology
DX: N92.0 Excessive and frequent menstruation with regular cycle (principal)
CPT/HCPCS: 36415; 80053; 84702; 85025

== ENCOUNTER 2023-09-01 10:06 | Observation (INO) | payer OTHER, SELFPAY ==
[2023-08-28 12:54] VITALS: BMI 32.2
[2023-09-01] VITALS (25 sets, daily range): BP systolic 116–131; BP diastolic 61–94; PULSE 71–94; RESP 12–18; TEMP 4.4–40; O2SAT 94–100
--- NOTE | 2023-09-01 06:53 | P.PNANES_ITS ---
[facility] Disclaimer: The information contained in this section may have been updated after the patient was seen, as this information can be updated by other users. Medical History Endometriosis Migraine Surgical History H/O laparoscopy S/P cholecystectomy Family History Grandmother Cancer Grandfather Cancer Social History Smoking Status: Current every day smoker tobacco type: cigarettes packs per day: 1 alcohol intake: never substance use type: denies use current occupational status: unemployed Travel in the last 8 weeks: None household members: family [facility] Anesthesia Checklist Patient Identification Patient Identification: Arm Band and Family Structural Data Admitted From: Home Planned Operative Procedure/s: [facility] Consent for Planned Operative Procedure(s) Verified: Yes Verified Documents: Surgical Consent and History and Physical NPO Status Verified Time NPO: 00:00 Additional verifications Patient : No Anesthesia Reactions: No Hx Blood Transfusions: Yes (2014) Blood Transfusion Reaction: No Previous Colonoscopy: No Airway Assessment Mallampati Score:: Class II TMJ Mobility Assessed: Yes Dentition: Good Dentition Neurological Assessment Level of Consciousness: Awake, Alert, Appropriate and Follows Commands Hx Seizures: No Numbness or tingling in extremities: No Anesthesia Plan Anesthesia Risk discussed: Yes ASA Class: II Anesthesia Type: General Preoperative Comments Pre-Operative Comments: Smoker. Previous surgeries X2 without problems or complications.
--- NOTE | 2023-09-01 09:35 | EXP.OP.NOTE ---
Date of procedure: 09/01/23 Pre-op Diagnosis:: Menorrhagia, endometriosis, dyspareunia, dysmenorrhea Post-op Diagnosis:: Menorrhagia, endometriosis, dyspareunia, dysmenorrhea, uterine hypertrophy Procedure performed:: Laparoscopically assisted vaginal hysterectomy, bilateral salpingectomy Surgeon:: Benedict Kinney MD Banking Pin Adjuster(s):: Dr. Shah MOLDED FRAMES ASSEMBLER:: Other (Juan Manuel Garay) Anesthesia: GETA Estimated blood loss (mL): 100 Clinical Note:: She is a 33-year-old lady who complains of severe dysmenorrhea. She has pain with intercourse as well as extremely heavy periods. She has had 3 laparoscopies in the past that had diagnosed endometriosis. Operative findings:: She had an anteverted bulky uterus. The tubes appeared normal as did the ovaries. There was a 2 mm area of powder burn on the left ureter on the left pelvic sidewall. Appendix appeared normal upper abdomen appeared normal. The rest the pelvis appeared normal. Operative note:: She was taken to the operating room where general anesthesia was found be adequate. She was prepped and draped in normal sterile fashion in the semilithotomy position. A weighted speculum was placed in the vagina and the anterior lip of the cervix was grasped with a tenaculum. A Lalita uterine manipulator was then placed within the cervical os. I then changed gloves. I injected 10 cc of 0.5% ropivacaine around the umbilicus and made a small incision within the umbilicus. I inserted a Veress needle into the abdominal cavity. The abdominal cavity was then insufflated with carbon dioxide gas to a pressure of 20 mmHg. I then inserted an 11 mm trocar under direct vision. I injected through and through the pubic hairline, made a small incision here and inserted a 5 mm trocar under direct vision. I identified the inferior epigastric arteries on the left side, went lateral to these and injected through and through. I then made a small incision and inserted an 11 mm trocar under direct vision. A similar 11 mm trocar was placed on the right side. The left round ligament was then grasped and cut through with harmonic scalpel. This was followed by opening up the peritoneum anteriorly to the midline. I then grasped the tube on the left side and cut through this. This is followed by cutting through the left utero-ovarian ligament. I used Harmonic scalpel on the coagulation mode. I then took down the posterior aspect of the broad ligament to the level of the uterosacral ligament. I then skeletonized the uterine arteries on the left side and placed hemoclips on these. Using the harmonic scalpel on coagulation mode adjacent to the cervix I then took down these uterine arteries. I then further freed up the bladder anteriorly and laterally on the left side. I then turned my attention to the right side where I grasped the right round ligament. I then cut through the right round ligament. I then took down the anterior peritoneum to the midline joining up with the other side. I further dissected the bladder off. The posterior aspect of the right broad ligament was then taken down with harmonic scalpel. I skeletonized the uterine arteries on the right side. I applied hemoclips to the uterine arteries and staying adjacent to the cervix on the right side I took down the uterine arteries with harmonic scalpel on coagulation mode. I further freed up the bladder. We then assured hemostasis. I then grasped the distal end of the right tube and using harmonic scalpel I cut along the mesosalpinx. The tube was removed through the 11 mm trocar site. This was only performed on the patient's left side. After once again assuring hemostasis we then turned our attention to the vaginal portion of the surgery. The patient was placed in the lithotomy position and a weighted speculum was placed in the vagina. The anterior and posterior lip of the cervix were grasped with Richardson tenacula. I then injected 20 cc of 1% Xylocaine with epinephrine circumfere
--- NOTE | 2023-09-01 09:37 | EXP.ANES.I ---
[facility] Anesthesia Record Part I Anesthesia Record I Intake, IV Amount: 1,500 Hydration: Adequate Estimated blood loss (mL): 100 Urine output (mL): 50 Blood Products used (#): none Blood Pressure: 124/70 SaO2: 94 Pulse Rate: 80 Airway Patency: Patent Respiratory Rate: 12 Temperature: 97.2 F Patient is:: Drowsy and Stable Stable to PACU at:: 09:28
--- NOTE | 2023-09-01 09:48 | SUR.PHASEI ---
Pt reports a pain level of (2) on the numeric scale. Warm blanket applied to pt's abdomen, and pt states relief. No other needs at this time
--- NOTE | 2023-09-01 09:50 | EXP.HP ---
History of Present Illness *Admission Date: 10/02/23 *Reason for visit:: Dysmenorrhea, history of endometriosis, dyspareunia, menorrhagia, *History of present illness: She is a 33-year-old lady who complains of severe pain with her periods as well as extremely heavy periods. She has had 3 laparoscopies in the past that showed endometriosis. She has pain with intercourse. After having discussed the risk and benefits we elected perform a laparoscopic-assisted vaginal hysterectomy and bilateral salpingectomy. [facility] Disclaimer: The information contained in this section may have been updated after the patient was seen, as this information can be updated by other users. Medical History Endometriosis Migraine Surgical History H/O laparoscopy S/P cholecystectomy Family History Cancer Grandmother Grandfather Social History Smoking Status: Current every day smoker tobacco type: cigarettes packs per day: 1 alcohol intake: never substance use type: denies use current occupational status: unemployed Travel in the last 8 weeks: None household members: family Review of Systems Review of Systems Review of systems:: pertinent systems reviewed and negative unless documented below Meds Home Medications and Allergies Home Medications Medication Instructions Recorded Confirmed Type No Known Home Medications 08/28/23 09/01/23 History New Prescriptions to Start Prescriptions: Allergies Allergy/AdvReac Type Severity Reaction Status Date / Time No Known Allergies Allergy Verified 09/01/23 06:14 Exam Data for Last 24 hours Vital signs and Labs for Last 24 Hours: Temp Pulse Resp BP Pulse Ox O2 Del Method 97.2 F L 80 12 124/70 94 L Room Air 09/01/23 09:39 09/01/23 09:39 09/01/23 09:39 09/01/23 09:39 09/01/23 09:38 09/01/23 09:38 I & O for Last 24 hours: Intake & Output 08/29/23 08/30/23 08/31/23 09/01/23 11:59 11:59 11:59 11:59 Intake Total 1500 / 1500 Balance 1500 / 1500 Weight 206 lb Constitutional Constitutional: no acute distress *Routine HEENT Exam Head: Present normocephalic Eye: Present EOMI and PERRL ENT: Present mucous membranes moist *Routine Neck Exam Neck: Present supple; Absent lymphadenopathy *Routine Respiratory Exam Respiratory: Present CTA bilaterally *Routine Cardiovascular Exam Cardiovascular: Present RRR *Routine Abdominal Exam Abdominal: Present soft and normoactive bowel sounds; Absent tenderness *Routine Rectal Exam Rectal:: deferred *Routine Genitalia Exam Genitalia:: deferred *Routine Extremities Exam Extremities: Absent cyanosis, clubbing or edema *Routine Skin Exam Skin: Present warm; Absent rash *Routine Neurological Exam Neurological: Present alert and oriented X3 Assessment and Plan *Assessment and plan (1) Dysmenorrhea: Status: Acute Category: Medical Code(s): N94.6 - Dysmenorrhea, unspecified (2) Menorrhagia: Status: Acute Qualifiers: Menorrhagia type: with regular cycle Qualified Code(s): N92.0 - Excessive and frequent menstruation with regular cycle Category: Medical Code(s): N92.0 - Excessive and frequent menstruation with regular cycle (3) Dyspareunia: Status: Acute Category: Medical (4) Endometriosis determined by laparoscopy: Status: Acute Category: Medical Code(s): N80.9 - Endometriosis, unspecified Plan She is admitted for laparoscopically assisted vaginal hysterectomy and bilateral salpingectomy. The risks and benefits of surgery were discussed the patient prior to surgery.
--- NOTE | 2023-09-01 09:55 | PC.NURSE ---
Detailed report received from Francy AVALOS.
--- NOTE | 2023-09-01 09:59 | SUR.PHASEI ---
Report called to ROBBIE De León at this time.
--- NOTE | 2023-09-01 10:15 | PC.NURSE ---
Pt. arrived to room 280, via bed, accompanied by staff x2 and family.
--- NOTE | 2023-09-01 11:06 | EXP.ANES.II ---
[facility] Anesthesia Record Part II Anesthesia Record Part II Discharge Time: 09:58 Destination: Obstetric PACU nurse assessment reviewed?: Yes Patient Condition:: Good Anesthesia Complications:: None Swallowing reflex intact?: Yes Airway Patency: Patent Cyanosis?: No Blood Pressure: 125/77 SaO2: 95 Respiratory Rate: 18 Pulse Rate: 92 Temperature: 97.2 F Mental Status: Alert & Oriented Pain level:: 0 Nausea and/or vomitting:: None Intake, IV Amount: 0 Hydration: Adequate
--- NOTE | 2023-09-01 13:38 | PC.NURSE ---
Pt. resting in bed, reports pain at 5/10, nurse offered pain medications pt. declined at this time. Pt. denies needs.
[2023-09-01 15:21] LABS: Microscopic,Cath URINE MICROSCOPIC (MICROSCOPIC)
[2023-09-01 15:47] LABS: Appearance,Urine/Cath CLEAR (Clear); Bilirubin,Cath Negative (Negative); Blood, Urine/Cath TRACE-I (Negative); Color,Urine/Cath YELLOW (Yellow); Glucose,Urine/Cath (UA) Negative (Negative); Ketones,Urine/Cath TRACE (Negative); Leukocyte Esterase,Cath Negative (Negative); Nitrate,Cath Negative (Negative); Protein,Urine/Cath 1+ (Negative); Specific Gravity, Urine/Cath >= 1.030 (1.005-1.030); Urobilinogen,Cath 0.2 EU/dl (0.2)
[2023-09-01 16:09] LABS: Bacteria,Urine/Cath TRACE /lpf; RBC,Urine/Cath Occasional # /hpf (0-3); Squamous Epithelial Ur./Cath Occasional #/hpf (0-5); WBC,Urine/Cath Occasional #/hpf (0-3)
[2023-09-01 17:29] LABS: Hematocrit 37.1 % (37.0-47.0); Hemoglobin 11.9 g/dL (12.2-16.2)
[2023-09-02 03:48] VITALS: BP 123/70; PULSE 64; RESP 18; TEMP 36.6; O2SAT 96
[2023-09-02 03:51] VITALS: O2SAT 96
--- NOTE | 2023-09-02 03:54 | PC.NURSE ---
Pt remains awake, lying in bed, watching tv. Denies any needs at this time. Medicated with scheduled pain medication. Abdominal binder remains in place. No change in appearance of 4 lap sites. (+)bs x4 quads. Tolerating POs well. Voiding without difficulty. Ambulates around room independently. VS stable. Afebrile. IV saline lock remains in rt arm, flushes easily.
[2023-09-02 06:41] LABS: Basophils % 0.1 % (0.1-2.0); Eosinophils % 0.1 % (0.1-12.0); Hematocrit 36.7 % (37.0-47.0); Hemoglobin 11.6 g/dL (12.2-16.2); Lymphocytes # 1.6 K/mm3 (0.7-4.5); Lymphocytes % 12.1 % (10-50); Mean Corpuscular HGB Conc 31.7 g/dL (31.8-35.4); Mean Corpuscular Hemoglobin 28.7 pg (27.0-31.2); Mean Corpuscular Volume 90.8 fl (81-99); Mean Platelet Volume 8.9 fl (7.4-10.4); Monocytes # 0.5 K/mm3 (0.1-1.0); Neutrophils # 10.9 K/mm3 (1.8-7.8); Neutrophils % 83.7 % (37.0-80.0); Platelet Count 237 K/mm3 (142-424); Red Blood Count 4.04 M/mm3 (4.20-5.40); Red Cell Distribution Width 13.7 % (11.5-17.5)
[2023-09-02 06:45] LABS: Chloride 109 mmol/L (98-107); Sodium 138 mmol/L (136-145)
[2023-09-02 06:48] LABS: Blood Urea Nitrogen 10 mg/dl (7-17); Calcium 8.3 mg/dl (8.4-10.2); Carbon Dioxide 25 mmol/L (22.0-30.0); Creatinine Clearance Estimated 169 mL/min (50-200); Estimated Glomerular Filt Rate 96 ml/min (>60); GFR (African American) 117 ML/MIN (>60); Glucose 120 mg/dl (74-100)
--- NOTE | 2023-09-02 07:14 | PC.NURSE ---
Dr. Kinney at bedside. Reviewing labs. Going to d/c home this am
[2023-09-02 08:00] VITALS: BP 117/60; PULSE 71; RESP 20; TEMP 36.6; O2SAT 97
--- NOTE | 2023-09-02 09:59 | EXP.DC.SUM ---
General Admission date:: 09/01/23 Discharge date: 09/02/23 HPI HPI HPI: She is a 33-year-old lady who complains of severe pain with her periods as well as extremely heavy periods. She has had 3 laparoscopies in the past that showed endometriosis. She has pain with intercourse. After having discussed the risk and benefits we elected perform a laparoscopic-assisted vaginal hysterectomy and bilateral salpingectomy. Hospital Course Hospital Course Hospital Course: On September 01, 2023 she underwent a laparoscopically assisted vaginal hysterectomy and bilateral salpingectomy. She has done well postoperatively and has remained afebrile throughout her hospitalization. She is eating and drinking and ambulating. Her pain is well controlled. She has just been taking Tylenol and Toradol. She denies any shortness of breath, chest pain or calf tenderness. She will be discharged home today to follow-up with me in approximately 2 weeks time. We will continue with her home medications. She will continue with ibuprofen at home and Tylenol at home. I have given her a prescription for Percocet 5/325 number 12 tablets. She was given the usual instructions with respect to limiting her activity, driving and sexual activity. She was given instructions with respect to wound care. Her condition on discharge is stable and improved. Exam Data for Last 24 hours Vital signs and Labs for Last 24 Hours: Temp Pulse Resp BP Pulse Ox O2 Del Method 97.8 F 71 20 117/60 97 Room Air 09/02/23 08:00 09/02/23 08:00 09/02/23 08:00 09/02/23 08:00 09/02/23 08:00 09/02/23 09:33 Laboratory Results - last 24 hr 09/01/23 09:10: Urine Color Yellow, Urine Appearance Clear, Urine pH 6.0, Ur Specific Thermal >= 1.030, Urine Protein 1+, Urine Glucose (UA) Negative, Urine Ketones Trace, Urine Blood Trace-i, Urine Nitrate Negative, Urine Bilirubin Negative, Urine Urobilinogen 0.2, Ur Leukocyte Esterase Negative, Urine RBC Occasional, Urine WBC Occasional, Ur Squamous Epith Cells Occasional, Urine Bacteria Trace 09/01/23 16:51: Hgb 11.9 L, Hct 37.1 09/02/23 05:45: WBC 13.0 H, RBC 4.04 L, Hgb 11.6 L, Hct 36.7 L, MCV 90.8, MCH 28.7, MCHC 31.7 L, RDW 13.7, Plt Count 237, MPV 8.9, Neut % (Auto) 83.7 H, Lymph % (Auto) 12.1, Stevens % (Auto) 4.0, Eos % (Auto) 0.1, Baso % (Auto) 0.1, Neut # (Auto) 10.9 H, Lymph # (Auto) 1.6, Stevens # (Auto) 0.5, Eos # (Auto) 0.0, Baso # (Auto) 0.0, Sodium 138, Potassium 4.0, Chloride 109 H, Carbon Dioxide 25, Anion Gap 8.0, BUN 10, Creatinine 0.70, Estimated Creat Clear 169, Estimated GFR 96, Est GFR ( Amer) 117, Glucose 120 H, Calcium 8.3 L I & O for Last 24 hours: Intake & Output 08/30/23 08/31/23 09/01/23 09/02/23 11:59 11:59 11:59 11:59 Intake Total 1500 / 1500 Output Total 825 / 825 Balance 1500 / 1500 -825 / -825 Constitutional Constitutional: no acute distress *Routine HEENT Exam Head: Present normocephalic *Routine Neck Exam Neck: Present supple and full ROM *Routine Respiratory Exam Respiratory: Present normal respiratory effort; Absent accessory muscle use *Routine Cardiovascular Exam Cardiovascular: Present RRR *Routine Abdominal Exam Abdominal: Present soft and normoactive bowel sounds; Absent tenderness, distended or rebound Results Data Completed and Pending Labs on day of discharge: Labs from last 24 hours 09/02/23 09/01/23 09/01/23 05:45 16:51 09:10 WBC 13.0 H RBC 4.04 L Hgb 11.6 L 11.9 L Hct 36.7 L 37.1 MCV 90.8 MCH 28.7 MCHC 31.7 L RDW 13.7 Plt Count 237 MPV 8.9 Neut % (Auto) 83.7 H Lymph % (Auto) 12.1 Stevens % (Auto) 4.0 Eos % (Auto) 0.1 Baso % (Auto) 0.1 Neut # (Auto) 10.9 H Lymph # (Auto) 1.6 Stevens # (Auto) 0.5 Eos # (Auto) 0.0 Baso # (Auto) 0.0 Sodium 138 Potassium 4.0 Chloride 109 H Carbon Dioxide 25 Anion Gap 8.0 BUN 10 Creatinine 0.70 Estimated Creat Clear 169 Estimated GFR 96 E
--- NOTE | 2023-09-02 10:50 | PC.NURSE ---
d/c education provided to patient at this time. encouraged questions. Went over postop care, incision care, pain control. she v/u
== END 2023-09-02 10:58 | disposition home or self-care (01) ==
LOC: OR 10:06 → OB 10:06
PROVIDERS: Admitting Provider Nurse Practitioner Obstetrics & Gynecology; PCP Internal Medicine Adolescent Medicine; Visit Provider Nurse Practitioner Obstetrics & Gynecology
PROC: 0UT9FZZ Resection of Uterus, Via Natural or Artificial Opening With Percutaneous Endoscopic Assistance (ICD-10-PCS; CPT 58552; principal; 2023-09-01 07:30)
DX: N94.10 Unspecified dyspareunia (principal); F17.210 Nicotine dependence, cigarettes, uncomplicated; N80.9 Endometriosis, unspecified; N94.6 Dysmenorrhea, unspecified
CPT/HCPCS: 58552; 36415; 80048; 81001; 85014; 85018; 85025; 96374; G0378; J2405

== ENCOUNTER 2023-11-03 12:38 | Emergency (ER) | payer OTHER, SELFPAY ==
[2023-11-03 12:39] VITALS: BP 110/75; PULSE 112; RESP 20; TEMP 37.2; O2SAT 98; BMI 33.4
--- NOTE | 2023-11-03 12:52 | EXP.UTC ---
Discharge Plan Disposition Patient Disposition: Home, Self-Care Condition: Good Prescriptions Prescriptions: New ondansetron 4 mg tablet,disintegrating 4 mg PO Q8H PRN (Reason: nausea and vomiting) Qty: 10 0RF Referrals Follow up/Referrals: Mookie Lim MD [Primary Care Provider] - See instructions Activity Restrictions/Add. Instructions Additional Instructions/Restrictions: *Monitor Temp, Over the counter Motrin or Tylenol as directed/as needed Tylenol every 4 hours and Motrin every 6 hours (as long as your family doctor has told you that you can take it) for fever or pain. and straight to ER if unable to lower temp less than 101.0 after medication given *Warm salt water gargles may help to soothe the throat *Throat Lozenges? *Warm fluids like tea with honey may help to soothe the throat? *Sleep elevated *Humidifier/Vaporizer Your throat swab was sent for culture. Those results are typically sent to your primary care. Be sure to follow up in 2-3 days with your family doctor/primary care physician if no improvement so they can review those result and treat if necessary. If you don?t have a primary care doctor, I recommend you get one but in the mean time, you will have to return to a walk in clinic Follow up IMMEDIATELY for new or worsening symptoms or no Noticeable improvement over the next 48-72 hours. 911 for difficulty breathing or swallowing Clinical Impressions Clinical Impression: Viral syndrome Stand Alone Forms Stand Alone Forms: Work/School Release Instructions Patient Instructions: DI for Viral Syndrome Discharge ED Provider: Pennie Wynn [facility] General Stated complaint: vomitting, body aches, chills Time Seen by Provider: 11/03/23 12:52 History of Present Illness Provider Complaint: Patient states that she hasnt been feeling well since she woke up this morning states that she feels like she may have the flu States that she has been having body aches, chills, headache vomiting and sore throat so she came in to get checked and tested Related Data Previous Rx's Medication Instructions Recorded ondansetron 4 mg disintegrating 4 mg PO Q8H PRN nausea and 11/03/23 tablet vomiting #10 tabs Allergies Allergy/AdvReac Type Severity Reaction Status Date / Time No Known Allergies Allergy Verified 10/13/23 09:47 [facility] Disclaimer: The information contained in this section may have been updated after the patient was seen, as this information can be updated by other users. Medical History 6 weeks follow-up Acute viral syndrome Endometriosis Flu-like symptoms Migraine Pharyngitis Strep throat Surgical History H/O laparoscopy History of bilateral salpingectomy History of laparoscopic-assisted vaginal hysterectomy S/P cholecystectomy Family History Grandmother Cancer Grandfather Cancer Social History Smoking Status: Current every day smoker tobacco type: cigarettes packs per day: 1 alcohol intake: never substance use type: denies use current occupational status: unemployed Travel in the last 8 weeks: None household members: family ROS Obtained: Yes All systems reviewed & no additional complaints except as documented and Yes Systems reviewed as appropriate & no additional complaints except as documented Constitutional Constitutional: Reports system reviewed and no additional complaints, except as documented, Reports as per HPI, Reports body ache, Reports chills and Reports headache(s) ENT Ears, Nose, Mouth, and Throat: Reports system reviewed and no additional complaints, except as documented, Reports as per HPI, Reports headache(s) and Reports sore throat Cardiovascular Cardiovascular: Reports
[2023-11-03 13:26] LABS: UTC Strep Screen (Rapid) Negative (Negative)
[2023-11-03 13:27] LABS: UTC Influenza A Antigen Negative (Negative); UTC Influenza B Antigen Negative (Negative)
[2023-11-03 13:39] VITALS: BP 110/75; PULSE 112; RESP 18; TEMP 37.2; O2SAT 98
== END 2023-11-03 13:39 | disposition home or self-care (01) ==
PROVIDERS: Emergency Provider Nurse Practitioner; PCP Internal Medicine Adolescent Medicine
DX: R11.2 Nausea with vomiting, unspecified (principal); R51.9 Headache, unspecified; R07.0 Pain in throat; M79.18 Myalgia, other site; R68.83 Chills (without fever); B34.9 Viral infection, unspecified
CPT/HCPCS: 87804; 87880; 99212; 99214; G0463

== ENCOUNTER 2023-11-12 13:52 | Emergency (ER) | payer OTHER, SELFPAY ==
[2023-11-12 14:40] VITALS: PULSE 93; RESP 18; TEMP 36.7; O2SAT 98; BMI 32.1
--- NOTE | 2023-11-12 15:01 | EXP.UTC ---
Discharge Plan Disposition Patient Disposition: Home, Self-Care Condition: Good Referrals Follow up/Referrals: Sherron Joyce APRN [Primary Care Provider] - See instructions Activity Restrictions/Add. Instructions Additional Instructions/Restrictions: No sign of a bacterial infection. Likely viral. Viruses can take 7-14 days to run their course. Nasal saline and bulb syringe or nose Dior to remove nasal drainage to help with nasal congestion. Hard to eat, drink, sleep with nasal congestion so important to keep this cleaned out. Monitor temp. Tylenol or Motrin as needed for pain or fever Encourage fluids, water, Gatorade, Powerade, Pedialyte if infant/toddler/child Warm salt water gargles Warm fluids Sore throat lozenges Sleep elevated Humidifier/vaporizer Follow-up immediately for new or worsening symptoms or no noticeable improvement over the next 48-72 hours. Clinical Impressions Clinical Impression: Upper respiratory infection, viral Instructions Patient Instructions: DI for Viral Upper Respiratory Infection -- Adult [facility] [facility] [place] General Stated complaint: cough,sore throat Mode of Arrival: Ambulatory Source of Information: Patient Limitations: No Limitations Time Seen by Provider: 11/12/23 15:01 Description of Symptoms (Recalled from Triage Doc. by RN): cough, and sore throat HEENT Symptoms (Recalled from RN notes): Yes Resp Symptoms (Recalled from RN notes): No Skin Symptoms (Recalled from RN notes): No MS Symptoms (Recalled from RN notes): No Functional Status (Recalled from RN notes): n/a History of Present Illness Provider Complaint: 33 yr old female presents for cough and sore throat Related Data Allergies Allergy/AdvReac Type Severity Reaction Status Date / Time No Known Allergies Allergy Verified 11/12/23 14:53 Worker's Comp Is this a Worker's Comp case?: No [facility] Disclaimer: The information contained in this section may have been updated after the patient was seen, as this information can be updated by other users. Medical History , [employer]) 6 weeks follow-up Acute viral syndrome Endometriosis Flu-like symptoms Migraine Pharyngitis Strep throat Surgical History , [employer]) H/O laparoscopy History of bilateral salpingectomy History of laparoscopic-assisted vaginal hysterectomy S/P cholecystectomy Family History , [employer]) Cancer Grandmother Grandfather Social History , [employer]) Smoking Status: Current every day smoker tobacco type: cigarettes packs per day: 1 alcohol intake: never substance use type: denies use current occupational status: unemployed Travel in the last 8 weeks: None household members: family ROS Obtained: Yes All systems reviewed & no additional complaints except as documented Constitutional Constitutional: Reports system reviewed and no additional complaints, except as documented and Reports as per HPI Eyes Eyes: Reports system reviewed and no additional complaints, except as documented ENT Ears, Nose, Mouth, and Throat: Reports system reviewed and no additional complaints, except as documented, Reports as per HPI and Reports sore throat Cardiovascular Cardiovascular: Reports system reviewed and no additional complaints, except as documented Respiratory Respiratory: Reports system reviewed and no additional complaints, except as documented, Reports as per HPI and Reports cough Musculoskeletal Musculoskeletal: Reports system reviewed and no additional complaints, except as documented Neurologic Neurologic: Reports system reviewed and no additional complaints, except as documented Endocrine Endocrine: Reports system reviewed and no additional complaints, except as documented Hematologic/Lymp
[2023-11-12 15:02] LABS: UTC Strep Screen (Rapid) Negative (Negative)
[2023-11-12 15:28] VITALS: BP 0/0; PULSE 93; RESP 18; TEMP 36.7; O2SAT 98
== END 2023-11-12 15:28 | disposition home or self-care (01) ==
PROVIDERS: Emergency Provider Nurse Practitioner Family; PCP Nurse Practitioner Family
DX: R07.0 Pain in throat (principal); R05.9 Cough, unspecified; J06.9 Acute upper respiratory infection, unspecified; B34.9 Viral infection, unspecified; F17.210 Nicotine dependence, cigarettes, uncomplicated
CPT/HCPCS: 87880; 99212; 99213; G0463

== ENCOUNTER 2023-12-17 20:29 | Emergency (ER) | payer OTHER, SELFPAY ==
[2023-12-17 20:31] VITALS: BP 137/84; PULSE 120; RESP 20; TEMP 37; O2SAT 98; BMI 32.1
--- NOTE | 2023-12-17 20:50 | PC.NURSE ---
in room talking with patient at this time.
--- NOTE | 2023-12-17 20:57 | HMH.EDGENADL ---
Discharge Plan Disposition Patient Disposition: Home, Self-Care Prescriptions Prescriptions: New oseltamivir [Tamiflu] 75 mg capsule 75 mg PO BID 5 Days Qty: 10 0RF Referrals Follow up/Referrals: Sherron Joyce APRN [Primary Care Provider] - See instructions Activity Restrictions/Add. Instructions Additional Instructions/Restrictions: Call your family doctor to establish care for this visit to the emergency department and schedule follow-up within 48 hours to ensure improvement. If you have any worsening of your condition or any other concerning signs or symptoms, return to the emergency department or your primary care doctor for further evaluation. Take Tylenol 1000 mg every 6 hours (4 times daily) and ibuprofen 400 mg every 6 hours (4 times daily) as needed with food and water to prevent GI upset and kidney damage. Daily Zyrtec can also help with symptoms Clinical Impressions Clinical Impression: Acute viral syndrome Discharge ED Provider: Mayur Person General Adult HPI General Chief complaint: Upper Respiratory Infection Stated complaint: Body aches,chills,cough,fever Time Seen by Provider: 12/17/23 20:33 Mode of Arrival: Ambulatory Source of Information: Patient Limitations: No Limitations Description of Symptoms (Recalled from ER Triage Doc. by RN): Pt presents with cough and congestion that started today. Family tested positive for flu on Friday. History of Present Illness HPI narrative: 33-year-old female presenting with body aches, fevers and chills. Numerous contacts in the house are flu positive. Patient came to be checked for the flu. Related Data Previous Rx's Medication Instructions Recorded oseltamivir 75 mg capsule (Tamiflu) 75 mg PO BID 5 days #10 caps 12/17/23 Allergies Allergy/AdvReac Type Severity Reaction Status Date / Time No Known Allergies Allergy Verified 11/12/23 14:53 [facility] Disclaimer: The information contained in this section may have been updated after the patient was seen, as this information can be updated by other users. Medical History , [employer]) 6 weeks follow-up Acute viral syndrome Endometriosis Flu-like symptoms Migraine Pharyngitis Strep throat Surgical History , [employer]) H/O laparoscopy History of bilateral salpingectomy History of laparoscopic-assisted vaginal hysterectomy S/P cholecystectomy Family History , [employer]) Cancer Grandmother Grandfather Social History , [employer]) Smoking Status: Current every day smoker tobacco type: cigarettes packs per day: 1 alcohol intake: never substance use type: denies use current occupational status: unemployed Travel in the last 8 weeks: None household members: family ROS Obtained: Yes All systems reviewed & no additional complaints except as documented Physical Exam General General appearance: alert and in no apparent distress Head Head exam: atraumatic and normocephalic Eye Eye exam: Present normal appearance, PERRL and EOMI ENT ENT exam: Present mucous membranes moist Neck Neck exam: Present normal inspection, full ROM and trachea midline Respiratory Respiratory exam: Absent respiratory distress, wheezes, stridor, accessory muscle use or prolonged expiratory phase Cardiovascular Cardiovascular exam: Present normal rhythm Abdominal Exam Abdominal exam: Present soft; Absent distention, tenderness, guarding, rebound or rigidity Extremities Exam Extremities exam: Absent edema Neurological Exam Neurological exam: Present alert, oriented X3, CN II-XII intact and normal gait; Absent motor sensory deficit Skin Skin exam: Present warm and dry; Absent diaphoresis or erythema Medical Decision Making Medical Records Medical records reviewed: Yes I reviewed the patient's medical records. Laz Inquiry Pt receiving controlled substance: No Laz was queried for this patient: No Vital Signs: 12/17/23 20:31 Temperature 98.6 F Temperature Source Oral Pulse Rate [Left] 120 H Respiratory Rate 20 Blood Pressure [Right Arm] 137/84 Blood Pressure Mean [Right Arm] 101 Blood Pressure Source [Right Arm] Automatic Cuff Blood Pressure Position [Right Arm] Sitting 02 Sat by Pulse Oximetry 98 Orders (Tests/Meds): ORDERS Category Date Time Status Rapid PCR Covid and Flu A/B Stat Lab 12/17/23 21:30 Ordered Medical Decision Narrative: 33-year-old female presenting with body aches, fevers and chills. Numerous contacts in the house are flu positive. Patient came to be checked for the flu. History was obtained via conversation with patient. On arrival, patient hemodynamically stable, alert, oriented x4, appropriate, GCS 15, moving all extremities spontaneously, pupils equal and reactive to light. Full physical exam performed and significant for well-appearing, hemodynamically stable, mildly tachycardic 120 beats a minute. Denies shortness of breath, cough. Cardiopulmonary exam within normal limits. Afebrile. Differential includes viral syndrome, among others. Her flu swab is pending at time of discharge, but her sons was positive. He likely has the flu Given patient presentation, workup, history, this most likely represents viral syndrome, likely influenza. Tamiflu will be sent to pharmacy. Even if swab is negative, likely false negative given everybody in her house has the same symptoms and everybody else has been diagnosed with flu. Because patient at baseline without signs or symptoms of clinical decompensation, deemed appropriate for discharge. Results were relayed to patient who voiced understanding and were agreeable to outpatient management and follow up. At the time of discharge the patient was hemodynamically stable, tolerating PO, and mobilizing appropriately. Critical Care Critical Care Time Critical Care Time: No
[2023-12-17 21:34] LABS: Influenza A, PCR Not Detected (NotDetected); Influenza B, PCR Not Detected (NotDetected)
[2023-12-17 21:35] LABS: Coronavirus 19, PCR Not Detected (NotDetected)
[2023-12-17 21:41] VITALS: BP 132/78; PULSE 115; RESP 18; TEMP 36.9
== END 2023-12-17 21:50 | disposition home or self-care (01) ==
PROVIDERS: Emergency Provider Emergency Medicine; PCP Nurse Practitioner Family
DX: R05.9 Cough, unspecified (principal); R09.81 Nasal congestion; R50.9 Fever, unspecified; B34.9 Viral infection, unspecified; F17.210 Nicotine dependence, cigarettes, uncomplicated
CPT/HCPCS: 87636; 99283

== ENCOUNTER 2024-01-06 18:55 | Emergency (ER) | payer OTHER, SELFPAY ==
[2024-01-06] VITALS (7 sets, daily range): BP systolic 125–151; BP diastolic 73–99; PULSE 88–97; RESP 18–20; TEMP 36.6–36.9; O2SAT 99–100; BMI 31.3
--- NOTE | 2024-01-06 19:28 | CT_ITS ---
PROCEDURE INFORMATION: Exam: CT Maxillofacial With Contrast Exam date and time: 01/06/2024 8:42 PM Age: 33 years old Clinical indication: Face pain; Additional info: Sinus pain, facial swelling TECHNIQUE: Imaging protocol: Computed tomography of the face with contrast. Radiation optimization: All CT scans at this facility use at least one of these dose optimization techniques: automated exposure control; mA and/or kV adjustment per patient size (includes targeted exams where dose is matched to clinical indication); or iterative reconstruction. Contrast material: ISOVUE; Contrast volume: 100 ml; Contrast route: IV; COMPARISON: HEADWO CT head/brain wo con 04/10/2018 11:47 AM FINDINGS: Orbital cavities: Orbits are normal. Globes are unremarkable. Bones/joints: No acute fracture. Paranasal sinuses: Normal. No air-fluid levels. Soft tissues: Unremarkable. IMPRESSION: Sinuses clear.
--- NOTE | 2024-01-06 19:35 | HMH.EDGENADL ---
Discharge Plan Disposition Patient Disposition: Home, Self-Care Condition: Good Prescriptions Prescriptions: New amoxicillin-pot clavulanate 875-125 mg tablet 1 tab PO BID Qty: 20 0RF Referrals Follow up/Referrals: Sherron Joyce APRN [Primary Care Provider] - See instructions Activity Restrictions/Add. Instructions Additional Instructions/Restrictions: You were evaluated in the emergency department today. Please picker and packer your prescription for antibiotics and take as prescribed. Take Tylenol and ibuprofen at home as needed for pain. Follow-up your primary care provider. Return to the emergency department for new or worsening symptoms. Clinical Impressions Clinical Impression: Sinusitis Instructions Patient Instructions: DI for Sinusitis Discharge ED Provider: Grace Tabares General Adult HPI General Chief complaint: Upper Respiratory Infection Stated complaint: facial swelling, pain in face Time Seen by Provider: 01/06/24 19:21 Mode of Arrival: Ambulatory Source of Information: Patient Limitations: No Limitations Description of Symptoms (Recalled from ER Triage Doc. by RN): Patient c/o sinus pressure that has gotten worse over the last 2 weeks. History of Present Illness HPI narrative: This patient is a 33-year-old female who denies significant past medical history presenting to the emergency department for evaluation with concern for sinus pressure. She notes that she has had sinus pressure for approximately 2 weeks but is now concerned because she feels like her face is swollen and she has not been swelling is extending down into her neck. She denies any vision changes, double vision, blurred vision, trismus, difficulty swallowing, dental pain or swelling, or other concerns. No shortness of breath. No fevers, chills, or systemic symptoms. Related Data Previous Rx's Medication Instructions Recorded amoxicillin 875 mg-potassium 1 tab PO BID #20 tabs 01/06/24 clavulanate 125 mg tablet Allergies Allergy/AdvReac Type Severity Reaction Status Date / Time No Known Allergies Allergy Verified 11/12/23 14:53 [facility] Disclaimer: The information contained in this section may have been updated after the patient was seen, as this information can be updated by other users. Medical History 6 weeks follow-up Acute viral syndrome Endometriosis Flu-like symptoms Migraine Pharyngitis Strep throat Surgical History H/O laparoscopy History of bilateral salpingectomy History of laparoscopic-assisted vaginal hysterectomy S/P cholecystectomy Family History Grandmother Cancer Grandfather Cancer Social History Smoking Status: Current every day smoker tobacco type: cigarettes packs per day: 1 alcohol intake: never substance use type: denies use current occupational status: unemployed Travel in the last 8 weeks: None household members: family ROS Obtained: Yes All systems reviewed & no additional complaints except as documented Physical Exam General General appearance: alert and in no apparent distress Head Head exam: atraumatic and normocephalic Eye Eye exam: Present normal appearance, PERRL and EOMI ENT ENT exam: Present normal exam, normal oropharynx, mucous membranes moist, normal external ear exam and other (Sinus tenderness to palpation. No swelling, trismus, drooling, subungual swelling, or any other concerns on exam) Neck Neck exam: Present normal inspection, full ROM and trachea midline; Absent tenderness Chest Chest inspection: Present normal inspection and symmetric chest wall rise; Absent tenderness Respiratory Respiratory exam: Present normal lung sounds bilaterally; Absent respiratory distress, wheezes, stridor or accessory muscle use Cardiovascular Cardiovascular exam: Present regular rate and normal rhythm Abdominal Exam Abdominal exam: Present soft; Absent distention, tenderness or guarding Extremities Exam Extremities exam: Present normal inspection, full ROM and normal capillary refill; Absent tenderness or edema Back Exam Back exam: Present normal inspection and full ROM; Absent tenderness Neurological Exam Neurological exam: Present alert, oriented X3, CN II-XII intact and normal gait; Absent motor sensory deficit Psychiatric Psychiatric exam: Present normal affect and normal mood Skin Skin exam: Present warm and dry Medical Decision Making Medical Records Medical records reviewed: Yes I reviewed the patient's medical records. Laz Inquiry Pt receiving controlled substance: No Vital Signs: 01/06/24 18:56 01/06/24 19:15 01/06/24 19:30 Temperature 98.4 F Temperature Source Oral Pulse Rate 88 90 Pulse Rate [Radial] 97 H Respiratory Rate 18 20 18 Blood Pressure 151/99 H 138/88 Blood Pressure [Left Arm] 151/99 H Blood Pressure Mean 114 104 Blood Pressure Mean [Left Arm] 116 Blood Pressure Source [Left Arm] Automatic Cuff Blood Pressure Position [Left Arm] Sitting 02 Sat by Pulse Oximetry 100 100 100 Oxygen Delivery Method Room Air Room Air Room Air 01/06/24 20:00 01/06/24 20:55 01/06/24 21:00 Temperature Temperature Source Pulse Rate 88 96 H 90 Pulse Rate [Radial] Respiratory Rate Blood Pressure 125/73 129/77 132/84 Blood Pressure [Left Arm] Blood Pressure Mean 90 93 100 Blood Pressure Mean [Left Arm] Blood Pressure Source [Left Arm] Blood Pressure Position [Left Arm] 02 Sat by Pulse Oximetry 100 99 100 Oxygen Delivery Method 01/06/24 21:33 Temperature 98 F Temperature Source Pulse Rate 88 Pulse Rate [Radial] Respiratory Rate 18 Blood Pressure 132/84 Blood Pressure [Left Arm] Blood Pressure Mean Blood Pressure Mean [Left Arm] Blood Pressure Source [Left Arm] Blood Pressure Position [Left Arm] 02 Sat by Pulse Oximetry Oxygen Delivery Method Lab Data Lab results reviewed: Yes I reviewed the patient's lab results. Lab Results 01/06/24 19:35: WBC 9.8, RBC 4.34, Hgb 13.1, Hct 39.2, MCV 90.4, MCH 30.2, MCHC 33.5, RDW 13.3, Plt Count 253, MPV 8.6, Neut % (Auto) 76.4, Lymph % (Auto) 18.1, [place] % (Auto) 4.1, Eos % (Auto) 1.0, Baso % (Auto) 0.4, Neut # (Auto) 7.5, Lymph # (Auto) 1.8, [place] # (Auto) 0.4, Eos # (Auto) 0.1, Baso # (Auto) 0.0, Sodium 138, Potassium 3.9, Chloride 106, Carbon Dioxide 26, Anion Gap 9.9, BUN 4 L, Creatinine 0.70, Estimated Creat Clear 164, Estimated GFR 96, Est GFR ( Amer) 117, Glucose 87, Calcium 9.5, Total Bilirubin 0.5, AST 25, ALT 20, Alkaline Phosphatase 89, Total Protein 7.5, Albumin 3.9, Globulin 3.6 H, Albumin/Globulin Ratio 1.1, Serum HCG, Qual Negative 01/06/24 19:35 01/06/24 19:35 Orders (Tests/Meds): ED MEDICATIONS Discontinued Medications Generic Name Dose Route Start Last Admin Trade Name Freq PRN Reason Stop Dose Admin Iopamidol 100 ml 01/06/24 20:46 01/06/24 20:47 Iopamidol-370 (76%);100ml Bottle IV 01/06/24 20:47 100 ml ONCE ONE Administration Sodium Chloride 10 ml 01/06/24 20:46 01/06/24 20:47 Sodium Chloride 0.9% 10ml Syr (Rad Only) IV 01/06/24 20:47 10 ml ONCE ONE Administration ORDERS Category Date Time Status CT facial bones w con Stat Cat Scan 01/06/24 19:28 Completed Complete Blood Count Auto Diff Stat Lab 01/06/24 19:35 Completed Comprehensive Metabolic Panel Stat Lab 01/06/24 19:35 Completed HCG Qualitative, Serum Stat Lab 01/06/24 19:35 Completed Medical Decision Narrative: In summary, this patient is a 33-year-old female presenting to the Emergency Department for evaluation of sinus pain, facial swelling, sensation of swelling in her throat. Differential diagnoses considered include but are not limited to sinusitis, cellulitis, Augustus's angina. Ruling out the most morbid conditions drove assessment. On exam, the patient has no appreciable swelling or skin changes at all. She does have tenderness palpation of her sinuses but I do not appreciate anything else abnormal. She has no drooling, trismus, submental swelling, neck swelling, or other concerns. She states that he feels like the pain and swelling is deeper. Given these concerns, will obtain basic labs as well as CT scan of the face with IV contrast. I independently interpreted CT scan prior to the radiologist read and noted no obvious acute facial swelling, abscess, or other concerns. Please see their read for final interpretation. Labs were obtained that demonstrated no acutely concerning abnormalities.. On reassessment, patient is resting comfortably in no acute distress. Exam remains reassuring. I feel she likely has sinusitis given her symptoms, though CT is not clinically significant. I do feel she is appropriate for discharge with prescription for Augmentin and instructions for close patient follow-up. She was given strict return precautions and was discharged in stable condition after all questions were answered Critical Care Critical Care Time Critical Care Time: No
[2024-01-06 19:51] LABS: Basophils % 0.4 % (0.1-2.0); Eosinophils # 0.1 K/mm3 (0.0-0.4); Hematocrit 39.2 % (37.0-47.0); Hemoglobin 13.1 g/dL (12.2-16.2); Lymphocytes # 1.8 K/mm3 (0.7-4.5); Lymphocytes % 18.1 % (10-50); Mean Corpuscular HGB Conc 33.5 g/dL (31.8-35.4); Mean Corpuscular Hemoglobin 30.2 pg (27.0-31.2); Mean Corpuscular Volume 90.4 fl (81-99); Mean Platelet Volume 8.6 fl (7.4-10.4); Monocytes # 0.4 K/mm3 (0.1-1.0); Monocytes % 4.1 % (1.7-9.3); Neutrophils # 7.5 K/mm3 (1.8-7.8); Neutrophils % 76.4 % (37.0-80.0); Platelet Count 253 K/mm3 (142-424); Red Blood Count 4.34 M/mm3 (4.20-5.40); Red Cell Distribution Width 13.3 % (11.5-17.5); White Blood Count 9.8 K/mm3 (4.8-10.8)
[2024-01-06 19:55] LABS: Chloride 106 mmol/L (98-107); Potassium 3.9 mmoL/L (3.5-5.1); Sodium 138 mmol/L (136-145)
[2024-01-06 19:58] LABS: Alanine Aminotransferase 20 U/L (12-78); Albumin Level 3.9 g/dl (3.5-5.0); Albumin/Globulin Ratio 1.1 (1.1-1.8); Alkaline Phosphatase 89 U/L (38-126); Anion Gap 9.9 mEq/L (5-15); Aspartate Amino Transferase 25 U/L (14-36); Bilirubin,Total 0.5 mg/dl (0.2-1.3); Blood Urea Nitrogen 4 mg/dl (7-17); Carbon Dioxide 26 mmol/L (22.0-30.0); Creatinine Clearance Estimated 164 mL/min (50-200); Estimated Glomerular Filt Rate 96 ml/min (>60); GFR (African American) 117 ML/MIN (>60); Globulin 3.6 g/dL (1.3-3.2); Total Protein,Serum 7.5 g/dl (6.3-8.2)
[2024-01-06 19:59] LABS: Calcium 9.5 mg/dl (8.4-10.2); Glucose 87 mg/dl (74-100)
[2024-01-06 20:36] LABS: HCG Qualitative, Serum Negative (Negative)
[2024-01-06] MEDS: SODIUM CHLORIDE 0.9% 10ML SYR (RAD ONLY) 10 ML IV (20:47)
[2024-01-06] MEDS: IOPAMIDOL-370 (76%);100ML BOTTLE 100 ML IV (20:47)
== END 2024-01-06 21:33 | disposition home or self-care (01) ==
PROVIDERS: Emergency Provider Emergency Medicine; PCP Nurse Practitioner Family
DX: J01.90 Acute sinusitis, unspecified (principal); G50.1 Atypical facial pain; F17.210 Nicotine dependence, cigarettes, uncomplicated
CPT/HCPCS: 70487; 80053; 84703; 85025; 99285; Q9967

== ENCOUNTER 2024-06-13 19:30 | Emergency (ER) | payer SELFPAY ==
--- NOTE | 2024-06-13 19:34 | HMH.EDGENADL ---
Discharge Plan Disposition Patient Disposition: Home, Self-Care Condition: Good Prescriptions Prescriptions: New joeosiutsxihkha-vlqeibffz-RB [Bromfed DM] 2-30-10 mg/5 mL syrup 5 ml PO Q4H PRN (Reason: allergy symptoms) Qty: 118 0RF prednisone 50 mg tablet 50 mg PO DAILY 5 Days Qty: 5 0RF doxycycline hyclate 100 mg capsule 100 mg PO BID 10 Days Qty: 20 0RF No Action amoxicillin-pot clavulanate 875-125 mg tablet 1 tab PO BID Qty: 20 0RF Referrals Follow up/Referrals: Sherron Joyce APRN [Primary Care Provider] - See instructions Activity Restrictions/Add. Instructions Additional Instructions/Restrictions: Follow-up with your PCP this week for recheck. Return to ER for any worsening signs or symptoms as needed. Clinical Impressions Clinical Impression: Community acquired pneumonia Qualifiers: Laterality: right Lung location: lower lobe of lung Qualified Code(s): J18.9 - Pneumonia, unspecified organism Instructions Patient Instructions: Pneumonia-Adult Discharge ED Provider: Martin Lomax General Adult HPI <KISHAN Acuña - Last Filed: 06/13/24 21:17> General Chief complaint: Upper Respiratory Infection Stated complaint: Sore throat,SOA,Chest congestion Time Seen by Provider: 06/13/24 19:34 History of Present Illness HPI narrative: Patient presents for evaluation of cough and pain with inspiration into her chest. Patient denies shortness of breath chills hemoptysis hematochezia melena or diarrhea but does endorse some nausea vomiting today. Patient states she has been sick since with significant constitutional symptoms including malaise myalgias arthralgias and subjective fever. Patient is a half a pack a day smoker but is not currently on oxygen. Related Data Previous Rx's Medication Instructions Recorded amoxicillin 875 mg-potassium 1 tab PO BID #20 tabs 01/06/24 clavulanate 125 mg tablet ejacogpsagnluzt-jowmicrmeqhvqvj-KL 5 ml PO Q4H PRN allergy symptoms 06/13/24 2 mg-30 mg-10 mg/5 mL oral syrup #118 mL (Bromfed DM) doxycycline hyclate 100 mg capsule 100 mg PO BID 10 days #20 caps 06/13/24 prednisone 50 mg tablet 50 mg PO DAILY 5 days #5 tabs 06/13/24 Allergies Allergy/AdvReac Type Severity Reaction Status Date / Time No Known Allergies Allergy Verified 11/12/23 14:53 PFSH <KISHAN Acuña - Last Filed: 06/13/24 21:17> [facility] Disclaimer: The information contained in this section may have been updated after the patient was seen, as this information can be updated by other users. Medical History 6 weeks follow-up Acute viral syndrome Endometriosis Flu-like symptoms Migraine Pharyngitis Strep throat Surgical History H/O laparoscopy History of bilateral salpingectomy History of laparoscopic-assisted vaginal hysterectomy S/P cholecystectomy Family History Grandmother Cancer Grandfather Cancer Social History Smoking Status: Unknown if ever smoked alcohol intake: never substance use type: denies use current occupational status: unemployed Travel in the last 8 weeks: None household members: family <KISHAN Acuña - Last Filed: 06/13/24 21:17> ROS Obtained: Yes Systems reviewed as appropriate & no additional complaints except as documented Physical Exam <KISHAN Acuña - Last Filed: 06/13/24 21:17> General General appearance: alert and in no apparent distress Respiratory Respiratory exam: Present normal lung sounds bilaterally; Absent respiratory distress, wheezes, stridor or accessory muscle use Cardiovascular Cardiovascular exam: Present regular rate, normal rhythm and normal heart sounds Neurological Exam Neurological exam: Present alert and oriented X3 Lymphatic Lymphatic Findings: no adenopathy Medical Decision Making <KISHAN Acuña - Last Filed: 06/13/24 21:17> Medical Records Medical records reviewed: Yes I reviewed the patient's medical records. Laz Inquiry Pt receiving controlled substance: No Vital Signs: 06/13/24 19:38 06/13/24 20:24 06/13/24 20:24 Temperature 100 F H Temperature Source Oral Pulse Rate 98 H 96 H Pulse Rate [Right Brachial] 100 H Respiratory Rate 16 Blood Pressure [Right Arm] 152/93 H Blood Pressure Mean [Right Arm] 112 Blood Pressure Source [Right Arm] Automatic Cuff Blood Pressure Position [Right Arm] Sitting 02 Sat by Pulse Oximetry 96 Oxygen Delivery Method Room Air Lab Data Lab results reviewed: Yes I reviewed the patient's lab results. Lab Results 06/13/24 19:50: WBC 6.9, RBC 4.14 L, Hgb 13.1, Hct 38.1, MCV 92.0, MCH 31.6 H, MCHC 34.3, RDW 13.3, Plt Count 226, MPV 9.3, Neut % (Auto) 70.3, Lymph % (Auto) 19.4, [place] % (Auto) 6.9, Eos % (Auto) 2.5, Baso % (Auto) 0.9, Neut # (Auto) 4.8, Lymph # (Auto) 1.3, [place] # (Auto) 0.5, Eos # (Auto) 0.2, Baso # (Auto) 0.1, Sodium 136, Potassium 3.8, Chloride 106, Carbon Dioxide 27, Anion Gap 6.8, BUN 7, Creatinine 0.70, Estimated Creat Clear 169, Estimated GFR 96, Est GFR ( Amer) 117, Glucose 103 H, Calcium 9.3, Magnesium 2.2, Total Bilirubin 0.5, AST 68 H, ALT 135 H, Alkaline Phosphatase 155 H, Total Protein 7.5, Albumin 4.0, Globulin 3.5 H, Albumin/Globulin Ratio 1.1, SARS-CoV-2 (PCR) Not detected, Influenza A Untype (PCR) Not detected, Influenza Type B (PCR) Not detected 06/13/24 20:28: Urine Color Yellow, Urine Appearance Slightly cloudy, Urine pH 6.0, Ur Specific [place] <= 1.005, Urine Protein Trace, Urine Glucose (UA) Negative, Urine Ketones Negative, Urine Blood 3+, Urine Nitrate Negative, Urine Bilirubin Negative, Urine Urobilinogen 2.0, Ur Leukocyte Esterase Negative, Urine RBC 10-20, Urine WBC None, Ur Squamous Epith Cells Occasional, Urine Bacteria None, Urine HCG, Qual Negative 06/13/24 19:50 06/13/24 19:50 Orders (Tests/Meds): ED MEDICATIONS Generic Name Dose Route Start Last Admin Trade Name Freq PRN Reason Stop Dose Admin Doxycycline Hyclate 100 mg 06/13/24 21:15 Doxycycline Hycl 100 Mg Tablet PO 06/23/24 21:14 Q12H ALEXI Discontinued Medications Generic Name Dose Route Start Last Admin Trade Name Leah PRN Reason Stop Dose Admin Acetaminophen 1,000 mg 06/13/24 19:38 06/13/24 20:04 Acetaminophen 1,000mg/100ml Vial IV 06/13/24 19:39 1,000 mg ONCE ONE Administration Albuterol/Ipratropium 3 ml 06/13/24 19:38 06/13/24 20:15 Ipratropium/Albuterol 3 Ml Neb IH 06/13/24 19:39 3 ml ONCE ONE Administration Dexamethasone Sodium Phosphate 10 mg 06/13/24 19:38 06/13/24 20:04 Dexamethasone 4mg/Ml 5ml Mdv IV 06/13/24 19:39 10 mg ONCE ONE Administration Sodium Chloride 500 mls @ 999 mls/hr 06/13/24 19:38 06/13/24 20:06 Sod Chlor 0.9% 1000ml Bag IV 06/13/24 20:08 999 mls/hr .Q31M ONE Administration Ketorolac Tromethamine 15 mg 06/13/24 19:38 06/13/24 20:04 Ketorolac 30mg/Ml Vial IV 06/13/24 19:39 15 mg ONCE ONE Administration ORDERS Category Date Time Status Chest XR -- portable [XR chest portable] Stat Exams 06/13/24 19:38 Completed CBC w/Auto Diff [Complete Blood Count Auto Diff] Stat Lab 06/13/24 19:50 Completed CMP [Comprehensive Metabolic Panel] Stat Lab 06/13/24 19:50 Completed Magnesium Stat Lab 06/13/24 19:50 Completed Rapid PCR Covid and Flu A/B Stat Lab 06/13/24 19:50 Completed UA [Urinalysis and Microscopic] Stat Lab 06/13/24 20:28 Completed Urine , HCG Qual. Stat Lab 06/13/24 20:28 Completed Medical Decision Narrative: In summary patient is a 33-year-old female who presents to the emergency department for evaluation of cough with respiratory tract symptoms and painful inspiration. Patient is hemodynamically stable upon arrival, with a temperature of 100 on arrival. Physical exam is remarkable for clear breath sounds without any adventitious sounds however inspiration causes her to have discomfort across her entire anterior chest. Breath sounds heard to bases. The remainder of her physical exam is unremarkable and nonfocal including no epigastric tenderness no abdominal tenderness normal bowel sounds. Differential diagnosis includes viral or bacterial respiratory tract infection including pneumonia, COPD exacerbation, pneumothorax musculoskeletal strain etc. Initial workup will be conducted with hematologic labs chest x-ray, COVID and flu swabs. Initial interventions include crystalloid bolus Toradol Tylenol. Initial workup reviewed by me shows that her hematologic labs are nonactionable however I see a right lower lobe infiltrate on her plain film x-ray via my informal interpretation prior to radiology read.. Upon repeat evaluation patient felt somewhat better after initial intervention. Given this appropriate for discharge with a prescription for doxycycline, prednisone and an inhaler. <Martin Lomax MD - Last Filed: 06/13/24 21:20> Vital Signs: 06/13/24 19:38 06/13/24 20:24 06/13/24 20:24 Temperature 100 F H Temperature Source Oral Pulse Rate 98 H 96 H Pulse Rate [Right Brachial] 100 H Respiratory Rate 16 Blood Pressure [Right Arm] 152/93 H Blood Pressure Mean [Right Arm] 112 Blood Pressure Source [Right Arm] Automatic Cuff Blood Pressure Position [Right Arm] Sitting 02 Sat by Pulse Oximetry 96 Oxygen Delivery Method Room Air Lab Data Lab Results 06/13/24 19:50: WBC 6.9, RBC 4.14 L, Hgb 13.1, Hct 38.1, MCV 92.0, MCH 31.6 H, MCHC 34.3, RDW 13.3, Plt Count 226, MPV 9.3, Neut % (Auto) 70.3, Lymph % (Auto) 19.4, [place] % (Auto) 6.9, Eos % (Auto) 2.5, Baso % (Auto) 0.9, Neut # (Auto) 4.8, Lymph # (Auto) 1.3, [place] # (Auto) 0.5, Eos # (Auto) 0.2, Baso # (Auto) 0.1, Sodium 136, Potassium 3.8, Chloride 106, Carbon Dioxide 27, Anion Gap 6.8, BUN 7, Creatinine 0.70, Estimated Creat Clear 169, Estimated GFR 96, Est GFR ( Amer) 117, Glucose 103 H, Calcium 9.3, Magnesium 2.2, Total Bilirubin 0.5, AST 68 H, ALT 135 H, Alkaline Phosphatase 155 H, Total Protein 7.5, Albumin 4.0, Globulin 3.5 H, Albumin/Globulin Ratio 1.1, SARS-CoV-2 (PCR) Not detected, Influenza A Untype (PCR) Not detected, Influenza Type B (PCR) Not detected 06/13/24 20:28: Urine Color Yellow, Urine Appearance Slightly cloudy, Urine pH 6.0, Ur Specific [place] <= 1.005, Urine Protein Trace, Urine Glucose (UA) Negative, Urine Ketones Negative, Urine Blood 3+, Urine Nitrate Negative, Urine Bilirubin Negative, Urine Urobilinogen 2.0, Ur Leukocyte Esterase Negative, Urine RBC 10-20, Urine WBC None, Ur Squamous Epith Cells Occasional, Urine Bacteria None, Urine HCG, Qual Negative Orders (Tests/Meds): ED MEDICATIONS Generic Name Dose Route Start Last Admin Trade Name Freq PRN Reason Stop Dose Admin Doxycycline Hyclate 100 mg 06/13/24 21:15 Doxycycline Hycl 100 Mg Tablet PO 06/23/24 21:14 Q12H ALEXI Discontinued Medications Generic Name Dose Route Start Last Admin Trade Name Freq PRN Reason Stop Dose Admin Acetaminophen 1,000 mg 06/13/24 19:38 06/13/24 20:04 Acetaminophen 1,000mg/100ml Vial IV 06/13/24 19:39 1,000 mg ONCE ONE Administration Albuterol/Ipratropium 3 ml 06/13/24 19:38 06/13/24 20:15 Ipratropium/Albuterol 3 Ml Neb IH 06/13/24 19:39 3 ml ONCE ONE Administration Dexamethasone Sodium Phosphate 10 mg 06/13/24 19:38 06/13/24 20:04 Dexamethasone 4mg/Ml 5ml Mdv IV 06/13/24 19:39 10 mg ONCE ONE Administration Sodium Chloride 500 mls @ 999 mls/hr 06/13/24 19:38 06/13/24 20:06 Sod Chlor 0.9% 1000ml Bag IV 06/13/24 20:08 999 mls/hr .Q31M ONE Administration Ketorolac Tromethamine 15 mg 06/13/24 19:38 06/13/24 20:04 Ketorolac 30mg/Ml Vial IV 06/13/24 19:39 15 mg ONCE ONE Administration ORDERS Category Date Time Status Chest XR -- portable [XR chest portable] Stat Exams 06/13/24 19:38 Completed CBC w/Auto Diff [Complete Blood Count Auto Diff] Stat Lab 06/13/24 19:50 Completed CMP [Comprehensive Metabolic Panel] Stat Lab 06/13/24 19:50 Completed Magnesium Stat Lab 06/13/24 19:50 Completed Rapid PCR Covid and Flu A/B Stat Lab 06/13/24 19:50 Completed UA [Urinalysis and Microscopic] Stat Lab 06/13/24 20:28 Completed Urine , HCG Qual. Stat Lab 06/13/24 20:28 Completed Medical Decision Narrative: In summary patient is a 33-year-old female who presents to the emergency department for evaluation of cough with respiratory tract symptoms and painful inspiration. Patient is hemodynamically stable upon arrival, with a temperature of 100 on arrival. Physical exam is remarkable for clear breath sounds without any adventitious sounds however inspiration causes her to have discomfort across her entire anterior chest. Breath sounds heard to bases. The remainder of her physical exam is unremarkable and nonfocal including no epigastric tenderness no abdominal tenderness normal bowel sounds. Differential diagnosis includes viral or bacterial respiratory tract infection including pneumonia, COPD exacerbation, pneumothorax musculoskeletal strain etc. Initial workup will be conducted with hematologic labs chest x-ray, COVID and flu swabs. Initial interventions include crystalloid bolus Toradol Tylenol. Initial workup reviewed by me shows that her hematologic labs are nonactionable however I see a right lower lobe infiltrate on her plain film x-ray via my informal interpretation prior to radiology read.. Upon repeat evaluation patient felt somewhat better after initial intervention. Given this appropriate for discharge with a prescription for doxycycline, prednisone and an inhaler. I was consulted by the [place], and we discussed the complexity of the problems being addressed. I approved the treatment and management plan for this patient's care in the emergency department, thus performing a substantive portion of the medical decision making. Martin Lomax MD Critical Care <KISHAN Acuña - Last Filed: 06/13/24 21:17> Critical Care Time Critical Care Time: No
[2024-06-13 19:38] VITALS: BP 152/93; PULSE 100; RESP 16; TEMP 37.7; O2SAT 96; BMI 32.4
--- NOTE | 2024-06-13 19:38 | XR_ITS ---
PROCEDURE INFORMATION: Exam: XR Chest Exam date and time: 06/13/2024 8:03 PM Age: 33 years old Clinical indication: Cough; Additional info: Painful inspiration, cough TECHNIQUE: Imaging protocol: Radiologic exam of the chest. Views: 1 view. COMPARISON: [facility] CT angio chest 04/10/2018 3:21 PM FINDINGS: Lungs: Patchy right medial lung base opacity. Clear left lung. Pleural spaces: Unremarkable. No pleural effusion. No pneumothorax. Heart/Mediastinum: Unremarkable. No cardiomegaly. Bones/joints: Unremarkable. IMPRESSION: Right basilar infiltration.
[2024-06-13 19:58] LABS: Coronavirus 19, PCR Not Detected (NotDetected); Influenza A, PCR Not Detected (NotDetected); Influenza B, PCR Not Detected (NotDetected)
--- NOTE | 2024-06-13 20:00 | PC.NURSE ---
nasal swab obtained and sent to lab
[2024-06-13] MEDS: ACETAMINOPHEN 1,000MG/100ML VIAL 1000 MG IV (20:04)
[2024-06-13] MEDS: DEXAMETHASONE 4MG/ML 5ML MDV 10 MG IV (20:04)
[2024-06-13] MEDS: KETOROLAC 30MG/ML VIAL 15 MG IV (20:04)
[2024-06-13] MEDS: 0.9 % SODIUM CHLORIDE 1000ML 500 ML 999 ML IV (20:06)
[2024-06-13 20:07] LABS: Basophils # 0.1 K/mm3 (0-0.2); Basophils % 0.9 % (0.1-2.0); Eosinophils # 0.2 K/mm3 (0.0-0.4); Eosinophils % 2.5 % (0.1-12.0); Hematocrit 38.1 % (37.0-47.0); Hemoglobin 13.1 g/dL (12.2-16.2); Lymphocytes # 1.3 K/mm3 (0.7-4.5); Lymphocytes % 19.4 % (10-50); Mean Corpuscular HGB Conc 34.3 g/dL (31.8-35.4); Mean Corpuscular Hemoglobin 31.6 pg (27.0-31.2); Mean Platelet Volume 9.3 fl (7.4-10.4); Monocytes # 0.5 K/mm3 (0.1-1.0); Monocytes % 6.9 % (1.7-9.3); Neutrophils # 4.8 K/mm3 (1.8-7.8); Neutrophils % 70.3 % (37.0-80.0); Platelet Count 226 K/mm3 (142-424); Red Blood Count 4.14 M/mm3 (4.20-5.40); Red Cell Distribution Width 13.3 % (11.5-17.5); White Blood Count 6.9 K/mm3 (4.8-10.8)
[2024-06-13 20:09] LABS: Chloride 106 mmol/L (98-107); Potassium 3.8 mmoL/L (3.5-5.1); Sodium 136 mmol/L (136-145)
[2024-06-13 20:11] LABS: Alanine Aminotransferase 135 U/L (12-78); Aspartate Amino Transferase 68 U/L (14-36); Bilirubin,Total 0.5 mg/dl (0.2-1.3); Blood Urea Nitrogen 7 mg/dl (7-17); Creatinine Clearance Estimated 169 mL/min (50-200); Estimated Glomerular Filt Rate 96 ml/min (>60); GFR (African American) 117 ML/MIN (>60)
[2024-06-13 20:12] LABS: Albumin/Globulin Ratio 1.1 (1.1-1.8); Alkaline Phosphatase 155 U/L (38-126); Anion Gap 6.8 mEq/L (5-15); Calcium 9.3 mg/dl (8.4-10.2); Carbon Dioxide 27 mmol/L (22.0-30.0); Globulin 3.5 g/dL (1.3-3.2); Glucose 103 mg/dl (74-100); Magnesium 2.2 mg/dl (1.6-2.3); Total Protein,Serum 7.5 g/dl (6.3-8.2)
[2024-06-13] MEDS: IPRATROPIUM/ALBUTEROL 3 ML NEB IH (20:15)
[2024-06-13 20:24] VITALS: PULSE 96; PULSE 98
--- NOTE | 2024-06-13 20:30 | PC.NURSE ---
urine collected and sent to lab
[2024-06-13 20:34] LABS: Microscopic, Urine URINE MICROSCOPIC (MICROSCOPIC)
[2024-06-13 20:37] LABS: Appearance,Urine Slightly Cloudy (Clear); Bilirubin,Urine Negative (Negative); Blood, Urine 3+ (Negative); Color,Urine YELLOW (Yellow); Glucose,Urine (UA) Negative (Negative); Ketones,Urine Negative (Negative); Leukocyte Esterase,Urine Negative (Negative); Nitrate,Urine Negative (Negative); Protein,Urine TRACE (Negative); Specific Gravity, Urine <= 1.005 (1.005-1.030)
[2024-06-13 20:52] LABS: Squamous Epithelial Cell,Urine Occasional #/hpf (0-5); Urine Pregnancy, HCG Qual. Negative (Negative)
[2024-06-13] MEDS: DOXYCYCLINE HYCL 100 MG TABLET PO (21:32)
[2024-06-13 21:33] VITALS: BP 142/70; PULSE 73; RESP 19; TEMP 36.6; O2SAT 98
== END 2024-06-13 21:35 | disposition home or self-care (01) ==
PROVIDERS: Physician Assistant; Emergency Provider Emergency Medicine; PCP Nurse Practitioner Family
DX: J18.9 Pneumonia, unspecified organism (principal); R07.1 Chest pain on breathing; R05.9 Cough, unspecified; F17.210 Nicotine dependence, cigarettes, uncomplicated; R50.9 Fever, unspecified
CPT/HCPCS: 71045; 80053; 81001; 81025; 83735; 85025; 87636; 96374; 96375; 99284; J0131; J1885; J7620

== ENCOUNTER 2025-10-08 15:49 | Emergency (ER) | payer OTHER, SELFPAY ==
[2025-10-08 15:55] VITALS: BP 145/87; PULSE 72; RESP 18; TEMP 36.6; O2SAT 99; BMI 35.4
--- NOTE | 2025-10-08 15:57 | XR_ITS ---
PROCEDURE INFORMATION: Exam: XR Chest Exam date and time: 10/08/2025 4:08 PM Age: 35 years old Clinical indication: Dyspnea TECHNIQUE: Imaging protocol: Radiologic exam of the chest. Views: 1 view. COMPARISON: [facility] XR CHEST PORTABLE 06/13/2024 8:03 PM FINDINGS: Lungs: Stable calcified granuloma in the right lung base . No focal consolidation. Pleural spaces: Unremarkable. No pleural effusion. No pneumothorax. Heart/Mediastinum: Unremarkable. No cardiomegaly. Bones/joints: Unremarkable. IMPRESSION: No acute findings.
--- NOTE | 2025-10-08 15:58 | ECG_ITS ---
APPROVED REPORT Exam: Resting ECG HR:110 bpm ECG Measurements Heart Rate 110 AXES NE 142 P 35 QRSd 76 QRS 65 QT 335 T 62 QTc 400 Conclusion SINUS TACHYCARDIA ABNORMAL RHYTHM ECG UNCONFIRMED REPORT Electronically signed by : JOAQUIN ALVARADO, 10/10/2025 02:47:31
--- NOTE | 2025-10-08 16:01 | ED_ITS ---
<Statement entered by Alex Morgan MD - 10/08/25 22:55> I was consulted by the [place], and we discussed the complexity of the problems being addressed. I approved the treatment and management plan for this patient's care in the emergency department, thus performing a substantive portion of the medical decision making. Alex Morgan MD, MIHAELA, FACEP Discharge Plan Disposition Patient Disposition: Home, Self-Care Prescriptions Prescriptions: New albuterol sulfate [Ventolin HFA] 90 mcg/actuation HFA aerosol inhaler 1 inh inhalation Q6H PRN (Reason: shortness of breath or wheezing) 30 Days Qty: 8.5 0RF Referrals Follow up/Referrals: Sherron Joyce APRN [Primary Care Provider, Medical] - See instructions Activity Restrictions/Add. Instructions Additional Instructions/Restrictions: Today you were evaluated in the emergency department and diagnosed with a viral URI. Your chest x-ray is unremarkable. Please follow-up with your PCP Friday morning. Use the albuterol inhaler for wheezing as needed. Return to the ED for any worsening of your condition. Clinical Impressions Clinical Impression: Acute URI Instructions Patient Instructions: Common Cold Print Language Print Language: Irish Discharge ED Provider: Alex Morgan General Adult HPI General Chief complaint: Chest Pain Stated complaint: chest discomfort , SOA Time Seen by Provider: 10/08/25 15:56 History of Present Illness HPI narrative: patient is a 35-year-old female who presents to the ED for 1 week of cough, shortness of breath and developed mild chest pain today. Patient states she has been struggling with respiratory symptoms all week however feels worse today. She currently uses tobacco products. Related Data Previous Rx's ?Medication ?Instructions ?Recorded albuterol sulfate 90 mcg/actuation 1 inh inhalation Q6 H PRN shortness 10/08/25 aerosol inhaler (Ventolin HFA) of breath or wheezing 3 0 days #8.5 grams Allergies Allergy/AdvReac Type Severity Reaction Status Date / Time No Known Allergies Allergy Verified 10/04/25 13:01 [facility] Disclaimer: The information contained in this section may have been updated after the patient was seen, as this information can be updated by other users. Medical History Migraine Acute viral syndrome Pharyngitis Endometriosis Strep throat Flu-like symptoms 6 weeks follow-up Surgical History History of bilateral salpingectomy History of laparoscopic-assisted vaginal hysterectomy H/O laparoscopy S/P cholecystectomy Family History Grandmother Cancer Grandfather Cancer Social History Smoking Status: Current every day smoker tobacco type: cigarettes packs per day: 1 alcohol intake: never substance use type: denies use current occupational status: unemployed Travel in the last 8 weeks?: None household members: family Have you lived/traveled outside US in past 30 days?: No Contact w/someone who lives/traveled outside US past 30 days?: No Exposure to someone with infectious disease in past 14 days?: No Do you have a fever (greater than 100.4 F or 38 C)?: No Have you tested positive for COVID-19?: No Exposed to someone with COVID-19 in past 14 days?: No Do you have a sore throat?: No Do you have a cough?: No Do you have any weakness?: No Do you have any diarrhea?: No Are you experiencing any unusual bleeding?: No Do you have any muscle aches/pain?: No Do you have any abdominal pain?: No Are you experiencing loss of taste or smell?: No Other Medical History Have you received the Flu Vaccine for this season: No Have you received the Pneumonia Vaccine: No ROS Obtained: Yes Systems reviewed as appropriate & no additional complaints except as documented Physical Exam General General appearance: alert Eye Eye exam: Present PERRL Neck Neck exam: Present full ROM Respiratory Respiratory exam: Present wheezes Cardiovascular Cardiovascular exam: Present tachycardia Abdominal Exam Abdominal exam: Present soft Extremities Exam Extremities exam: Present full ROM Neurological Exam Neurological exam: Present alert, oriented X3 and normal gait Skin Skin exam: Present warm and dry Medical Decision Making Medical Records Screening: Per USPSTF and CDC recommendations, given the prevalence of disease in our region, it is our hospital?s policy to screen for HIV and viral Hepatitis for all patients aged 18 and over and those with ongoing risk factors. Laz Inquiry Pt receiving controlled substance: No Vital Signs: 10/08/25 15:55 10/08/25 16:30 10/08/25 16:36 Temperature 97.9 F Temperature Source Oral Pulse Rate 99 H 98 H Pulse Rate [Right Radial] 72 Respiratory Rate 18 Blood Pressure Blood Pressure [Right Arm] 145/87 H Blood Pressure Mean [Right Arm] 106 Blood Pressure Source Blood Pressure Source [Right Arm] Automatic Cuff Blood Pressure Position Blood Pressure Position [Right Arm] Supine 02 Sat by Pulse Oximetry 99 99 Oxygen Delivery Method Room Air Room Air 10/08/25 17:00 10/08/25 17:28 Temperature 98 F Temperature Source Oral Pulse Rate 102 H 97 H Pulse Rate [Right Radial] Respiratory Rate 18 Blood Pressure 138/83 Blood Pressure [Right Arm] Blood Pressure Mean [Right Arm] Blood Pressure Source Automatic Cuff Blood Pressure Source [Right Arm] Blood Pressure Position Supine Blood Pressure Position [Right Arm] 02 Sat by Pulse Oximetry 95 Oxygen Delivery Method Room Air Room Air Lab Data Lab Results 10/08/25 16:00: WBC 8.0, RBC 4.25, Hgb 13.1, Hct 37.8, MCV 88.9, MCH 30.8, MCHC 34.7, RDW 12.5, Plt Count 250, MPV 10.9 H, Neut % (Auto) 82.3 H, Lymph % (Auto) 9.4 L, [place] % (Auto) 7.0, Eos % (Auto) 0.4, Baso % (Auto) 0.4, Neut # (Auto) 6.6, Lymph # (Auto) 0.8, [place] # (Auto) 0.6, Eos # (Auto) 0.0, Baso # (Auto) 0.0, Sodium 136, Potassium 3.6, Chloride 104, Carbon Dioxide 23, Anion Gap 12.6, BUN 5 L, Creatinine 0.80, Estimated Creat Clear 169, Estimated GFR 82, Est GFR ( Amer) 99, Glucose 123 H, Calcium 8.7, Total Bilirubin 0.6, AST 31, ALT 30, Alkaline Phosphatase 86, Troponin I < 0.01, Total Protein 7.3, Albumin 4.7, Globulin 2.6, Albumin/Globulin Ratio 1.8, HCV Ab KATHIE w/Rflx PCR Qn Reactive, HIV Ag/Ab Combo Qual Negative 10/08/25 16:04: SARS-CoV-2 (PCR) Not detected, Influenza A Untype (PCR) Not detected, Influenza Type B (PCR) Not detected 10/08/25 16:00 10/08/25 16:00 Orders (Tests/Meds): ED MEDICATIONS Discontinued Medications Generic Name Dose Route Start Last Admin Trade Name Leah PRN Reason Stop Dose Admin Albuterol/Ipratropium 3 ml 10/08/25 15:57 10/08/25 16:23 Ipratropium/Albuterol 3 Ml Neb IH 10/08/25 15:58 3 ml ONCE ONE Administration ORDERS Category Date Time Status CXR --portable [XR chest portable] Stat Exams 10/08/25 15:57 Completed CBC w/Auto Diff [Complete Blood Count Auto Diff] Stat Lab 10/08/25 16:00 Completed CMP [Comprehensive Metabolic Panel] Stat Lab 10/08/25 16:00 Completed HCV RNA PCR, Quant Stat Lab 10/08/25 16:00 Received HIV Combo Stat Lab 10/08/25 16:00 Completed Hepatitis C Ab Qual. W/ RFX Stat Lab 10/08/25 16:00 Completed Rapid PCR Covid and Flu A/B Stat Lab 10/08/25 16:04 Completed Trop I [Troponin I] Stat Lab 10/08/25 16:00 Completed Medical Decision Narrative: In summary, patient is a 35-year-old female who presents to the ED for 1 week of cough, shortness of breath and developed mild chest pain today. Patient states she has been struggling with respiratory symptoms all week however feels worse today. She currently uses tobacco products. Has not seen anyone for this illness yet. Has not had any medication prior to arrival. Denies any history of PE. Upon initial evaluation she is alert, oriented and cooperative. She is tachycardic, lung sounds reveal bilateral wheezing on expiration. She is able to speak in full sentences, oxygen saturation 97%. Differential diagnosis include ACS, pulmonary embolism, pneumonia, pneumothorax, among others. Discussed with patient we will proceed with labs and chest x-ray for further evaluation. Will administer DuoNeb treatment Labs reviewed. CBC unremarkable for any leukocytosis, stable H&H. CMP unremarkable for any actionable abnormalities. Troponin < 0.01. Chest x-ray unremarkable for any acute findings. Upon reassessment, patient states that her condition has improved. She was likely has a viral URI, she will follow-up on her COVID and influenza swab on her [place] cheryle. Discussed that she will need to follow-up with her PCP Friday morning. We discussed return precautions to the ED and patient verbalized understanding. Critical Care Critical Care Time Critical Care Time: No
[2025-10-08 16:14] LABS: Coronavirus 19, PCR Not Detected (NotDetected); Influenza A, PCR Not Detected (NotDetected); Influenza B, PCR Not Detected (NotDetected)
[2025-10-08 16:21] LABS: Hematocrit 37.8 % (37.0-47.0); Hemoglobin 13.1 g/dL (12.2-16.2); Immature Granulocytes % 0.5 %; Mean Corpuscular HGB Conc 34.7 g/dL (31.8-35.4); Mean Corpuscular Hemoglobin 30.8 pg (27.0-31.2); Mean Corpuscular Volume 88.9 fl (81-99); Nucleated Red Blood Cells % 0 %; Platelet Count 250 K/mm3 (142-424); Red Blood Count 4.25 M/mm3 (4.20-5.40); Red Cell Distribution Width-SD 40.9 fL; White Blood Count 8.0 K/mm3 (4.8-10.8)
[2025-10-08] MEDS: IPRATROPIUM/ALBUTEROL 3 ML NEB IH (16:23)
[2025-10-08 16:30] VITALS: PULSE 99; O2SAT 99
[2025-10-08 16:33] LABS: Chloride 104 mmol/L (98-107)
[2025-10-08 16:34] LABS: Albumin Level 4.7 g/dl (3.5-5.0); Potassium 3.6 mmoL/L (3.5-5.1); Sodium 136 mmol/L (136-145)
[2025-10-08 16:36] VITALS: PULSE 98
[2025-10-08 16:36] LABS: Blood Urea Nitrogen 5 mg/dl (7-17); Creatinine Clearance Estimated 169 mL/min (50-200); Creatinine,Serum 0.80 mg/dl (0.52-1.04); Estimated Glomerular Filt Rate 82 ml/min (>60); GFR (African American) 99 ML/MIN (>60)
[2025-10-08 16:37] LABS: Alanine Aminotransferase 30 U/L (12-78); Albumin/Globulin Ratio 1.8 (1.1-1.8); Alkaline Phosphatase 86 U/L (38-126); Anion Gap 12.6 mEq/L (5-15); Aspartate Amino Transferase 31 U/L (14-36); Bilirubin,Total 0.6 mg/dl (0.2-1.3); Calcium 8.7 mg/dl (8.4-10.2); Carbon Dioxide 23 mmol/L (22.0-30.0); Globulin 2.6 g/dL (1.3-3.2); Glucose 123 mg/dl (74-100); Total Protein,Serum 7.3 g/dl (6.3-8.2)
[2025-10-08 16:49] LABS: Troponin I < 0.01 ng/ml (0.00-0.034)
[2025-10-08 17:00] VITALS: PULSE 102; O2SAT 95
[2025-10-08 17:28] VITALS: BP 138/83; PULSE 97; RESP 18; TEMP 36.6; O2SAT 98
[2025-10-08 18:09] LABS: Hepatitis C Ab Qual. W/ RFX REACTIVE (Negative)
== END 2025-10-08 17:37 | disposition home or self-care (01) ==
PROVIDERS: Emergency Provider Student in an Organized Health Care Education/Training Program; PCP Nurse Practitioner Family
DX: R07.9 Chest pain, unspecified (principal); R06.02 Shortness of breath; J06.9 Acute upper respiratory infection, unspecified; F17.210 Nicotine dependence, cigarettes, uncomplicated
CPT/HCPCS: 71045; 80053; 84484; 85025; 86803; 87389; 87522; 87636; 93005; 99285

== ENCOUNTER 2025-10-17 10:29 | Outpatient (CLI) | payer OTHER, SELFPAY ==
--- NOTE | 2025-10-17 10:32 | XR_ITS ---
FINAL REPORT TECHNIQUE: Left shoulder 3 views CLINICAL HISTORY: PAIN IN JOINT COMPARISON: None FINDINGS: LEFT SHOULDER: 3 images of the left shoulder were obtained. There is no evidence of fracture or dislocation. The joint spaces are intact. There is no soft tissue abnormality identified. IMPRESSION: No acute bony abnormality. Reviewed, Interpreted and Dictated by Reynold Cruz MD Transcribed by Vivian Sharp Authenticated and . [facility]
== END 2025-10-17 23:59 ==
LOC: RAD 10:30
PROVIDERS: PCP Nurse Practitioner Family; Visit Provider Nurse Practitioner Family
DX: M25.512 Pain in left shoulder (principal)
CPT/HCPCS: 73030

== ENCOUNTER 2025-10-26 11:00 | Outpatient (RCR) | payer OTHER, SELFPAY ==
--- NOTE | 2025-10-21 11:06 | HMH.OTOPEV ---
OT Evaluation Rehab OT Outpatient Eval Start: 10/21/25 10:07 Freq: Status: Active Protocol: Document 10/21/25 10:49 EVELYNJHONY (Rec: 10/21/25 11:03 LAWRENCE [id number]) E-signed By Francy Ruffin, OT Outpatient Therapy Subjective History Subjective History The patient is a 35-year-old female referred to skilled outpatient occupational therapy services for left shoulder pain. She reports experiencing persistent left shoulder pain for the past one to two years with no noted improvement. Observation reveals uneven shoulder positioning, with the left shoulder lower than the right. Active range of motion of the left shoulder is within functional limits. The patient denies any known injuries, and an X-ray completed on 10/17/25 revealed no significant findings. She reports numbness and tingling in the left hand during functional use, as well as pain during lifting, pushing, and pulling tasks with the left upper extremity. Patient presents with chronic left shoulder pain, postural asymmetry, and intermittent sensory symptoms in the left hand, which may be contributing to functional limitations during upper extremity tasks. Skilled OT is indicated to address pain management, postural correction, activity modification, and functional use of the left upper extremity. Chief Complaint Pain Symptom Type Ache Symptoms Relieved By Nothing Symptoms Aggravated Physical Activity By Prior Functional None Limitations Current Functional Reaching,Lifting Limitations Symptom Description Constant and Continuous Level of pain today 3 (0-10) Pain scale - at its 3 best (0-10) Pain scale - at its 8 worst (0-10) Shoulder/Elbow Eval Shoulder Objective Measurements Shoulder MMT Left Upper Trapezius/ 3 Fair Levator Scapulae Shoulder Abduction 3 Fair Strength Grade Shoulder Extension 3 Fair Strength Grade Shoulder Flexion 3 Fair Strength Grade Shoulder Horizontal 3 Fair Abduction Strength Grade Shoulder Horizontal 3 Fair Adduction Strength Grade Infraspinatus/Teres 3 Fair Minor Strength Grade Shoulder External 3 Fair Rotation Strength Grade Shoulder Internal 3 Fair Rotation Strength Grade Elbow Objective Measurements QuickDASH Activities Please rate your ability to do the following activities in the last week by selecting the number below the appropriate response. 1. Open a tight or Mild difficulty new jar. 2. Do heavy Mild difficulty junior mechanical engineer (e. g., wash dorman, floors). 3. Carry a shopping Mild difficulty bag or briefcase. 4. Wash your back. Mild difficulty 5. Use a knife to No difficulty cut food. 6. Recreational Mild difficulty activities in which you take some force or impact through your arm, shoulder, or hand (e.g., golf, hammering, tennis, etc.). 7. During the past Slightly week, to what extent has your arm, shoulder or hand problem interfered with your normal social activities with family, friends , neighbors or groups? 8. During the past Not limited at all week, were you limited in your work or other regular daily activites as a result of your arm, shoulder or hand problem? 9. Arm, shoulder or Moderate hand pain. 10. Tingling (pins Moderate and needles) in your arm, shoulder or hand. 11. During the past No difficulty week, how much difficulty have you had sleeping because of the pain in your arm, shoulder or hand? Quick DASH 21 OT Patient Goals OT Patient Goals OT Short Term 1. Patient will report a 25?50% reduction in left Patient Goals shoulder pain during functional AROM tasks to improve participation in daily routines. 2. Patient will demonstrate improved postural alignment , with decreased visible asymmetry of the shoulders, as evidenced by improved scapular positioning during therapy sessions. 3. Patient will tolerate therapeutic exercises for the L UE (scapular stability, strengthening, and mobility) with pain =3/10. 4. Patient will verbalize and demonstrate understanding of 2?3 activity modification strategies to reduce pain and improve functional performance. 5. Patient will report decreased numbness/tingling in the L hand during functional tasks through implementation of sensory strategies and postural correction. 6. Patient will be independent with a home exercise program (HEP) designed to address posture, shoulder stabilization, and functional mobility. OT Longterm Patient 1. Patient will demonstrate improved functional use of Goals the left upper extremity, reporting pain =2/10 during lifting, pushing, and pulling tasks to support independent completion of daily activities OT Outpatient Assessment Impairments Problems/Impairments Impaired Range of Motion,Impaired Strength,Subjective C /O Pain Prognosis Rehab Potential Good Clinical Impression Consistent with Yes Diagnosis Outpatient Therapy Plan of Care Treatment Plan May Include Therapeutic Exercise Yes Including Home Exercise Program Manual Therapy Yes Techniques Therapeutic Yes Activities to Return to Previous Functional/Work Level Thermal Modalities Yes Electrical Yes Stimulation Ultrasound/ Yes Phonophoresis Iontophoresis Yes Parrafin Yes Eval/Re-Eval Yes Frequency Times per week 2x/wk Duration Number of Weeks 4 weeks Addendums This patient is a No candidate for social or vocational rehab ? Patient/Guardian Yes verbally acknowledges understanding of treatment program and consents to further treatment? Patient/Guardian Yes verbally acknowledges understanding of diagnosis, prognosis and goals for treatment? Eval Complexity OT Charge 48808 - Low Complexity PHYSICIAN CERTIFICATION: I certify the specified therapy services for Josselin Marrufo are required, authorized, and reviewed every 30 days.
== END 2025-10-26 23:59 | disposition home or self-care (01) ==
LOC: OT 11:00
PROVIDERS: PCP Nurse Practitioner Family; Visit Provider Nurse Practitioner Family
DX: M25.512 Pain in left shoulder (principal)
CPT/HCPCS: 97032; 97110; 97140; 97165; 97530

== ENCOUNTER 2025-10-27 05:31 | Emergency (ER) | payer OTHER, SELFPAY ==
[2025-10-27] VITALS (9 sets, daily range): BP systolic 95–146; BP diastolic 52–82; PULSE 59–81; RESP 14–21; TEMP 36.6–36.7; O2SAT 95–99; BMI 35.2
--- NOTE | 2025-10-27 05:35 | ECG_ITS ---
APPROVED REPORT Exam: Resting ECG HR:74 bpm ECG Measurements Heart Rate 74 AXES NV 156 P 35 QRSd 78 QRS 67 QT 393 T 64 QTc 421 Conclusion SINUS RHYTHM NORMAL ECG Electronically signed by : ANTONIA GUERRA, 10/27/2025 13:57:28
--- NOTE | 2025-10-27 05:37 | XR_ITS ---
PROCEDURE INFORMATION: Exam: XR Chest Exam date and time: 10/27/2025 5:46 AM Age: 35 years old Clinical indication: Pain; Chest pressure; Additional info: Cp TECHNIQUE: Imaging protocol: Radiologic exam of the chest. Views: 1 view. COMPARISON: CR XR CHEST PORTABLE 10/08/2025 4:08 PM FINDINGS: Lungs: Right lung granuloma unchanged from prior. No consolidation. Pleural spaces: Unremarkable. No pleural effusion. No pneumothorax. Heart/Mediastinum: Unremarkable. No cardiomegaly. Bones/joints: Unremarkable. IMPRESSION: No acute findings.
[2025-10-27] MEDS: ACETAMINOPHEN 500MG TAB 1000 MG PO (05:42)
[2025-10-27] MEDS: ASPIRIN 81MG CHEWABLE TABLET 324 MG PO (05:42)
[2025-10-27] MEDS: BELLADONNA ALKALOIDS 60 ML ML PO (05:42)
[2025-10-27 05:43] LABS: Hematocrit 37.8 % (37.0-47.0); Hemoglobin 12.4 g/dL (12.2-16.2); Immature Granulocytes % 0.5 %; Mean Corpuscular HGB Conc 32.8 g/dL (31.8-35.4); Mean Corpuscular Hemoglobin 29.7 pg (27.0-31.2); Mean Corpuscular Volume 90.6 fl (81-99); Nucleated Red Blood Cells % 0 %; Platelet Count 221 K/mm3 (142-424); Red Blood Count 4.17 M/mm3 (4.20-5.40); Red Cell Distribution Width-SD 42.2 fL; White Blood Count 8.8 K/mm3 (4.8-10.8)
[2025-10-27 05:48] LABS: Albumin Level 3.5 g/dl (3.5-5.0); Chloride 108 mmol/L (98-107); Sodium 140 mmol/L (136-145)
[2025-10-27 05:49] LABS: Potassium 4.1 mmoL/L (3.5-5.1)
[2025-10-27 05:51] LABS: Alanine Aminotransferase 21 U/L (12-78); Albumin/Globulin Ratio 1.2 (1.1-1.8); Alkaline Phosphatase 70 U/L (38-126); Anion Gap 13.1 mEq/L (5-15); Aspartate Amino Transferase 22 U/L (14-36); Bilirubin,Total 0.4 mg/dl (0.2-1.3); Blood Urea Nitrogen 10 mg/dl (7-17); Carbon Dioxide 23 mmol/L (22.0-30.0); Creatinine Clearance Estimated 186 mL/min (50-200); Creatinine,Serum 0.70 mg/dl (0.52-1.04); Estimated Glomerular Filt Rate 95 ml/min (>60); GFR (African American) 115 ML/MIN (>60); Globulin 3.0 g/dL (1.3-3.2); Total Protein,Serum 6.5 g/dl (6.3-8.2)
[2025-10-27 05:52] LABS: Calcium 8.8 mg/dl (8.4-10.2); Glucose 119 mg/dl (74-100)
--- NOTE | 2025-10-27 05:59 | HMH.EDGENADL ---
Discharge Plan Disposition Patient Disposition: Home, Self-Care Prescriptions Prescriptions: No Action albuterol sulfate [Ventolin HFA] 90 mcg/actuation HFA aerosol inhaler 1 inh inhalation Q6H PRN (Reason: shortness of breath or wheezing) 30 Days Qty: 8.5 0RF Referrals Follow up/Referrals: Antelmo Marshall MD [Staff Physician, Cardiology] - See instructions Sherron Joyce APRN [Primary Care Provider, Medical] - See instructions Activity Restrictions/Add. Instructions Additional Instructions/Restrictions: At this time it was felt you are safe to be discharged home. If new or worsening symptoms please do not hesitate to return the emergency department. Please call and schedule appointment with Dr. Marshall as soon as you are able. Happy Thanksgiving! Clinical Impressions Clinical Impression: Chest pain Print Language Print Language: Angolan Discharge ED Provider: Bryce Maria General Adult HPI <Bryce Maria MD - Last Filed: 10/27/25 07:04> General Chief complaint: Chest Pain Stated complaint: Chest Pain Time Seen by Provider: 10/27/25 05:37 Mode of Arrival: Wheelchair Source of Information: Patient Description of Symptoms (Recalled from ER Triage Doc. by RN): Pt reports at approx 055 this AM she woke with CP, nausea, and tinglig to her left arm. Pt reports her pain had eased and is now 2/10 non radiating. History of Present Illness HPI narrative: 35-year-old female without significant past history presents for chest pain. She reports that she woke up with pain and tingling in her left arm and hand. She is here developing some chest pain as well. She got up and went to get her . Her does report that she was acting confused for couple of minutes but then went back to normal. She reports her chest pain is improving now. Nothing like this has happened before. Denies any recent fever or illness. No cardiac history. No history of blood clots. Has had a hysterectomy. Related Data Previous Rx's ?Medication ?Instructions ?Recorded albuterol sulfate 90 mcg/actuation 1 inh inhalation Q6H PRN shortness 10/08/25 aerosol inhaler (Ventolin HFA) of breath or wheezing 30 days #8.5 grams Allergies Allergy/AdvReac Type Severity Reaction Status Date / Time No Known Allergies Allergy Verified 10/04/25 13:01 [facility] <Bryce Maria MD - Last Filed: 10/27/25 07:04> [facility] Disclaimer: The information contained in this section may have been updated after the patient was seen, as this information can be updated by other users. Medical History Migraine Acute viral syndrome Pharyngitis Endometriosis Strep throat Flu-like symptoms 6 weeks follow-up Surgical History History of bilateral salpingectomy History of laparoscopic-assisted vaginal hysterectomy H/O laparoscopy S/P cholecystectomy Family History Grandmother Cancer Grandfather Cancer Social History Smoking Status: Current every day smoker tobacco type: cigarettes packs per day: 1 alcohol intake: never substance use type: denies use current occupational status: unemployed Travel in the last 8 weeks?: None household members: family Other Medical History Have you received the Flu Vaccine for this season: No Have you received the Pneumonia Vaccine: No <Bryce Maria MD - Last Filed: 10/27/25 07:04> ROS Obtained: Yes All systems reviewed & no additional complaints except as documented Physical Exam <Bryce Maria MD - Last Filed: 10/27/25 07:04> General General appearance: alert and in no apparent distress Head Head exam: atraumatic and normocephalic Eye Eye exam: Present normal appearance, PERRL and EOMI ENT ENT exam: Present normal oropharynx and normal external ear exam Neck Neck exam: Present normal inspection and full ROM Chest Chest inspection: Present normal inspection and symmetric chest wall rise; Absent tenderness Respiratory Respiratory exam: Present normal lung sounds bilaterally; Absent respiratory distress Cardiovascular Cardiovascular exam: Present regular rate and normal rhythm Abdominal Exam Abdominal exam: Present soft; Absent distention, tenderness or guarding Extremities Exam Extremities exam: Present normal inspection; Absent edema or joint swelling Back Exam Back exam: Present normal inspection; Absent tenderness Neurological Exam Neurological exam: Present alert and oriented X3; Absent motor sensory deficit Psychiatric Psychiatric exam: Present normal affect and normal mood Skin Skin exam: Present warm, dry and normal color Lymphatic Lymphatic Findings: no adenopathy Medical Decision Making <Bryce Maria MD - Last Filed: 10/27/25 07:04> Medical Records Medical records reviewed: Yes I reviewed the patient's medical records. Screening: Per USPSTF and CDC recommendations, given the prevalence of disease in our region, it is our hospital?s policy to screen for HIV and viral Hepatitis for all patients aged 18 and over and those with ongoing risk factors. Laz Inquiry Pt receiving controlled substance: No Laz was queried for this patient: No Vital Signs: 10/27/25 05:33 10/27/25 05:37 10/27/25 06:01 Temperature 98 F 97.8 F Temperature Source Oral Oral Pulse Rate 81 77 Pulse Rate [Left] 80 Respiratory Rate 18 18 14 Blood Pressure 146/72 H 106/64 L Blood Pressure [Right Arm] 134/82 Blood Pressure Mean 84 Blood Pressure Mean [Right Arm] 99 Blood Pressure Source [Right Arm] Automatic Cuff Blood Pressure Position [Right Arm] Sitting 02 Sat by Pulse Oximetry 99 98 98 Oxygen Delivery Method Room Air Room Air 10/27/25 06:30 10/27/25 07:01 10/27/25 07:43 Temperature Temperature Source Pulse Rate 71 69 69 Pulse Rate [Left] Respiratory Rate 15 14 17 Blood Pressure 103/58 L 107/55 L 104/66 L Blood Pressure [Right Arm] Blood Pressure Mean 73 Blood Pressure Mean [Right Arm] Blood Pressure Source [Right Arm] Blood Pressure Position [Right Arm] 02 Sat by Pulse Oximetry 98 98 97 Oxygen Delivery Method Room Air Room Air 10/27/25 08:00 10/27/25 08:30 Temperature Temperature Source Pulse Rate 59 L 68 Pulse Rate [Left] Respiratory Rate 17 17 Blood Pressure 95/52 L 95/59 L Blood Pressure [Right Arm] Blood Pressure Mean Blood Pressure Mean [Right Arm] Blood Pressure Source [Right Arm] Blood Pressure Position [Right Arm] 02 Sat by Pulse Oximetry 96 95 Oxygen Delivery Method Room Air Room Air Lab Data Lab results reviewed: Yes I reviewed the patient's lab results. Lab Results 10/27/25 05:35: WBC 8.8, RBC 4.17 L, Hgb 12.4, Hct 37.8, MCV 90.6, MCH 29.7, MCHC 32.8, RDW 12.9, Plt Count 221, MPV 10.5 H, Neut % (Auto) 63.4, Lymph % (Auto) 25.1, Bledsoe % (Auto) 9.6 H, Eos % (Auto) 1.1, Baso % (Auto) 0.3, Neut # (Auto) 5.6, Lymph # (Auto) 2.2, Bledsoe # (Auto) 0.8, Eos # (Auto) 0.1, Baso # (Auto) 0.0, D-Dimer 0.83 H, Sodium 140, Potassium 4.1, Chloride 108 H, Carbon Dioxide 23, Anion Gap 13.1, BUN 10, Creatinine 0.70, Estimated Creat Clear 186, Estimated GFR 95, Est GFR ( Amer) 115, Glucose 119 H, Calcium 8.8, Total Bilirubin 0.4, AST 22, ALT 21, Alkaline Phosphatase 70, Troponin I < 0.01, Total Protein 6.5, Albumin 3.5, Globulin 3.0, Albumin/Globulin Ratio 1.2 10/27/25 08:25: Troponin I < 0.01 10/27/25 05:35 10/27/25 05:35 Orders (Tests/Meds): ED MEDICATIONS Discontinued Medications Generic Name Dose Route Start Last Admin Trade Name Freq PRN Reason Stop Dose Admin Acetaminophen 1,000 mg 10/27/25 05:37 10/27/25 05:42 Acetaminophen 500mg Tab PO 10/27/25 05:38 1,000 mg ONCE ONE Administration Aspirin 324 mg 10/27/25 05:37 10/27/25 05:42 Aspirin 81mg Chewable Tablet PO 10/27/25 05:38 324 mg ONCE ONE Administration Belladonna Alkaloids 60 ml 10/27/25 05:37 10/27/25 05:42 Belladonna Alkaloids 60 Ml Ml PO 10/27/25 05:38 60 ml ONCE ONE Administration Ondansetron HCl 4 mg 10/27/25 05:58 10/27/25 06:04 Ondansetron 4mg/2ml Vial IV 10/27/25 05:59 4 mg ONCE ONE Administration ORDERS Category Date Time Status CXR --portable [XR chest portable] Stat Exams 10/27/25 05:37 Completed CBC w/Auto Diff [Complete Blood Count Auto Diff] Stat Lab 10/27/25 05:35 Completed CMP [Comprehensive Metabolic Panel] Stat Lab 10/27/25 05:35 Completed D-Dimer Stat Lab 10/27/25 05:35 Completed Troponin I Q3H Lab 10/27/25 05:35 Completed Troponin I Q3H Lab 10/27/25 08:25 Completed ECG Data Tracing #1: I reviewed this ECG and interpreted as documented below: ECG initial impression date: 10/27/25 ECG initial impression time: 05:35 ECG normal with no acute: arrhythmias, ischemia, conduction abnormalities, chamber hypertrophy Normal Sinus Rhythm: Yes HEART Score History (anamnesis): Moderately suspicious ECG: Normal Age: <45 years Risk factors: No known risk factors Troponin: </= normal limit HEART Score: 1 Medical Decision Narrative: 35-year-old female without significant past medical history presents for arm pain and chest pain. History was obtained via interactive discussion with patient. On arrival, patient is [afebrile, hemodynamically stable, satting appropriately, alert, oriented x4, GCS 15], moving all extremities spontaneously. Full physical exam performed and significant for no significant physical exam abnormalities Differential includes but is not limited to ACS, PE, musculoskeletal pain, pneumonia, pneumothorax. Patient was given Tylenol, aspirin, GI cocktail, Zofran for symptomatic management and correction of underlying abnormalities. Workup initiated including CBC CMP troponin EKG D-dimer chest x-ray. On re-evaluation, patient [remains afebrile, HD stable.] Laboratory workup independently interpreted by me and significant for negative initial troponin, negative D-dimer by years criteria. Imaging independently interpreted by me and significant for clear lungs bilaterally without focal opacity. See radiology read for full review of final results. EKG independently interpreted by me and significant for normal sinus rhythm. Patient was placed in ED observation status for continuous cardiac monitoring and serial cardiac enzymes. <Martin Lomax MD - Last Filed: 10/27/25 09:18> Vital Signs: 10/27/25 05:33 10/27/25 05:37 10/27/25 06:01 Temperature 98 F 97.8 F Temperature Source Oral Oral Pulse Rate 81 77 Pulse Rate [Left] 80 Respiratory Rate 18 18 14 Blood Pressure 146/72 H 106/64 L Blood Pressure [Right Arm] 134/82 Blood Pressure Mean 84 Blood Pressure Mean [Right Arm] 99 Blood Pressure Source [Right Arm] Automatic Cuff Blood Pressure Position [Right Arm] Sitting 02 Sat by Pulse Oximetry 99 98 98 Oxygen Delivery Method Room Air Room Air 10/27/25 06:30 10/27/25 07:01 10/27/25 07:43 Temperature Temperature Source Pulse Rate 71 69 69 Pulse Rate [Left] Respiratory Rate 15 14 17 Blood Pressure 103/58 L 107/55 L 104/66 L Blood Pressure [Right Arm] Blood Pressure Mean 73 Blood Pressure Mean [Right Arm] Blood Pressure Source [Right Arm] Blood Pressure Position [Right Arm] 02 Sat by Pulse Oximetry 98 98 97 Oxygen Delivery Method Room Air Room Air 10/27/25 08:00 10/27/25 08:30 Temperature Temperature Source Pulse Rate 59 L 68 Pulse Rate [Left] Respiratory Rate 17 17 Blood Pressure 95/52 L 95/59 L Blood Pressure [Right Arm] Blood Pressure Mean Blood Pressure Mean [Right Arm] Blood Pressure Source [Right Arm] Blood Pressure Position [Right Arm] 02 Sat by Pulse Oximetry 96 95 Oxygen Delivery Method Room Air Room Air Lab Data Lab Results 10/27/25 05:35: WBC 8.8, RBC 4.17 L, Hgb 12.4, Hct 37.8, MCV 90.6, MCH 29.7, MCHC 32.8, RDW 12.9, Plt Count 221, MPV 10.5 H, Neut % (Auto) 63.4, Lymph % (Auto) 25.1, Bledsoe % (Auto) 9.6 H, Eos % (Auto) 1.1, Baso % (Auto) 0.3, Neut # (Auto) 5.6, Lymph # (Auto) 2.2, Bledsoe # (Auto) 0.8, Eos # (Auto) 0.1, Baso # (Auto) 0.0, D-Dimer 0.83 H, Sodium 140, Potassium 4.1, Chloride 108 H, Carbon Dioxide 23, Anion Gap 13.1, BUN 10, Creatinine 0.70, Estimated Creat Clear 186, Estimated GFR 95, Est GFR ( Amer) 115, Glucose 119 H, Calcium 8.8, Total Bilirubin 0.4, AST 22, ALT 21, Alkaline Phosphatase 70, Troponin I < 0.01, Total Protein 6.5, Albumin 3.5, Globulin 3.0, Albumin/Globulin Ratio 1.2 10/27/25 08:25: Troponin I < 0.01 Orders (Tests/Meds): ED MEDICATIONS Discontinued Medications Generic Name Dose Route Start Last Admin Trade Name Leah PRN Reason Stop Dose Admin Acetaminophen 1,000 mg 10/27/25 05:37 10/27/25 05:42 Acetaminophen 500mg Tab PO 10/27/25 05:38 1,000 mg ONCE ONE Administration Aspirin 324 mg 10/27/25 05:37 10/27/25 05:42 Aspirin 81mg Chewable Tablet PO 10/27/25 05:38 324 mg ONCE ONE Administration Belladonna Alkaloids 60 ml 10/27/25 05:37 10/27/25 05:42 Belladonna Alkaloids 60 Ml Ml PO 10/27/25 05:38 60 ml ONCE ONE Administration Ondansetron HCl 4 mg 10/27/25 05:58 10/27/25 06:04 Ondansetron 4mg/2ml Vial IV 10/27/25 05:59 4 mg ONCE ONE Administration ORDERS Category Date Time Status CXR --portable [XR chest portable] Stat Exams 10/27/25 05:37 Completed CBC w/Auto Diff [Complete Blood Count Auto Diff] Stat Lab 10/27/25 05:35 Completed CMP [Comprehensive Metabolic Panel] Stat Lab 10/27/25 05:35 Completed D-Dimer Stat Lab 10/27/25 05:35 Completed Troponin I Q3H Lab 10/27/25 05:35 Completed Troponin I Q3H Lab 10/27/25 08:25 Completed HEART Score HEART Score: 1 Medical Decision Narrative: 35-year-old female without significant past medical history presents for arm pain and chest pain. History was obtained via interactive discussion with patient. On arrival, patient is [afebrile, hemodynamically stable, satting appropriately, alert, oriented x4, GCS 15], moving all extremities spontaneously. Full physical exam performed and significant for no significant physical exam abnormalities Differential includes but is not limited to ACS, PE, musculoskeletal pain, pneumonia, pneumothorax. Patient was given Tylenol, aspirin, GI cocktail, Zofran for symptomatic management and correction of underlying abnormalities. Workup initiated including CBC CMP troponin EKG D-dimer chest x-ray. On re-evaluation, patient [remains afebrile, HD stable.] Laboratory workup independently interpreted by me and significant for negative initial troponin, negative D-dimer by years criteria. Imaging independently interpreted by me and significant for clear lungs bilaterally without focal opacity. See radiology read for full review of final results. EKG independently interpreted by me and significant for normal sinus rhythm. Patient was placed in ED observation status for continuous cardiac monitoring and serial cardiac enzymes. Martin Lomax: Upon assumption of care patient was hemodynamically stable. Patient's chest pain has subsided upon my evaluation. Will get serial troponins at this point. The patient was placed in observation status at 0700. Medical necessity for observational status is serial troponins. The patient was provided serial reevaluations cardiac monitoring while awaiting results. Serial troponins undetectably low. Due to this I feel that patient is appropriate for outpatient management at this time and is appropriate for discharge and was given return precautions. Total time in observation was 2 hours and 18 minutes. Procedures <Bryce Maria MD - Last Filed: 10/27/25 07:04> Risk/Benefits of Procedure(s) Were Explained: Yes Critical Care <Bryce Maria MD - Last Filed: 10/27/25 07:04> Critical Care Time Critical Care Time: No
[2025-10-27 06:00] LABS: D-Dimer 0.83 ug/mL (0.0-0.5)
[2025-10-27 06:04] LABS: Troponin I < 0.01 ng/ml (0.00-0.034)
[2025-10-27] MEDS: ONDANSETRON 4MG/2ML VIAL 4 MG IV (06:04)
[2025-10-27 09:16] LABS: Troponin I < 0.01 ng/ml (0.00-0.034)
== END 2025-10-27 09:28 | disposition home or self-care (01) ==
PROVIDERS: Emergency Provider Emergency Medicine; PCP Nurse Practitioner Family
DX: R07.9 Chest pain, unspecified (principal); F17.210 Nicotine dependence, cigarettes, uncomplicated
CPT/HCPCS: 71045; 80053; 84484; 85025; 85378; 93005; 99285; J2405

== ENCOUNTER 2025-10-31 11:08 | Outpatient (CLI) | payer OTHER, SELFPAY | END 2025-10-31 23:59 | disposition home or self-care (01) | LOC: RT 11:09 | PROVIDERS: PCP Nurse Practitioner Family; Visit Provider Physician Assistant | DX: I49.1 Atrial premature depolarization (principal); I49.3 Ventricular premature depolarization; R55 Syncope and collapse | CPT/HCPCS: 93270 ==

== ENCOUNTER 2025-11-07 08:37 | Outpatient (CLI) | payer OTHER, SELFPAY ==
--- NOTE | 2025-11-07 08:45 | CA_ITS ---
APPROVED REPORT EXAM: Comprehensive 2D, Doppler, and color-flow Echocardiogram Coil Rewind Machine Operator: Denise Rivera RVT Ht: 5 ft 8 in Wt: 241lbs BSA: 2.21 BP: 160/102 mmHg Indications: CHEST PAIN 2D Dimensions Left Atrium 2.93 cm F: 2.7 - 3.8 LA Volume 19.80 mL RVID Base (AP4) 2.67 cm (M/F) 2.5-4.1 LA Volume Index 8.96 mL/m2 (M/F) 16-34 LVOT 2.06 cm (M/F) 1.5-2.5 EF AP4 51.30 % GL Strain -15.6 % M-Mode Dimensions RVDd 2.77 cm (0.9-2.6) LVDd 3.31 cm (3.5-5.7) Ao Diam 2.66 cm (2.0-3.7) LVDs 2.13 cm (3.5-5.7) IVSd 1.37 cm (0.6-1.1) PWd 0.61 cm (0.6-1.1) EF (Teich) 66.50% FS 35.60% EDV (Teich) 44.50 mL TAPSE 1.91 (<1.7) ESV (Teich) 14.90 mL LV Diastology E Decel Time 150 (160-240 msec) E/A Ratio 1.5 MED E' 8.6 (>= 7 cm/sec) E'/MED E' Ratio 9.19 (<= 14) LAT E' 12.2 (>= 10 cm/sec) E/LAT E' Ratio 6.48 (<= 14) Aortic Valve LVOT Max 104.0 (70-110 cm/s) YOLANDE Index 0.99 cm2/m2 LVOT VTI 18.73 cm AoV Peak Norris. 143.0 (50-130 cm/s) AO Peak GR. 6.20 mmHg AO Mean GR. 4.80 (<5 mmHg) AO VTI 28.6 (18-25 cm) YOLANDE (VTI) 2.19 (2.5-4.5 cm2) Mitral Valve MV E Max Norris. 79.0 (40-130 cm/s) MV A Velocity 54.0 (40-130 cm/s) E/A Ratio 1.47 MV Decel. Time 150 (160-240 ms) Left Ventricle The left ventricle is normal size. Left ventricular systolic function is normal. The left ventricular ejection fraction is within the normal range. There is normal left ventricular wall thickness. There is normal LV segmental wall motion. The left ventricular diastolic function is normal. LVEF is 55% Right Ventricle The right ventricle is normal size. The right ventricular systolic function is normal. Atria The left atrium size is normal. The right atrium size is normal. There is no color Doppler evidence of interatrial shunt. Aortic Valve The aortic valve opens well. There is no hemodynamically significant aortic valvular stenosis. No aortic regurgitation is present. Mitral Valve The mitral valve is normal in structure. No evidence of mitral valve stenosis. Trace mitral regurgitation is present. Tricuspid Valve The tricuspid valve leaflets are thin and pliable. Trace tricuspid regurgitation. There is insufficient TR jet to estimate RVSP. Pulmonic Valve The pulmonary valve is grossly normal in structure. Trace pulmonic valve regurgitation is present. Great Vessels The aortic root is normal in size. IVC is normal in size and collapses >50% with inspiration. Pericardium There is no pericardial effusion. Other Information Study Quality: Fair Conclusion Normal biventricular systolic function. No significant valvular stenosis or regurgitation. Electronically signed by : Bing Alexandre MD 11/11/2025 17:38:15
== END 2025-11-07 23:59 | disposition home or self-care (01) ==
LOC: RT 08:37
PROVIDERS: PCP Nurse Practitioner Family; Visit Provider Physician Assistant
DX: R07.9 Chest pain, unspecified (principal); R53.83 Other fatigue; R06.02 Shortness of breath; R55 Syncope and collapse; Z82.49 Family history of ischemic heart disease and other diseases of the circulatory system
CPT/HCPCS: 93306

== ENCOUNTER 2025-11-09 10:30 | Outpatient (CLI) | payer OTHER, SELFPAY ==
[2025-11-09 10:30] VITALS: BP 122/82; BP 197/80; PULSE 94; RESP 16
--- NOTE | 2025-11-09 10:30 | CA_ITS ---
APPROVED REPORT Exam: Exercise Treadmill Technologist: Jeannie Barth Stress Nurse: Dinora LOZANO, RN Ht: 5 ft 8 in Wt: 241 lbs BSA: 2.21 m2 HR: 94 bpm BP: 122/82 mmHg Indications: Chest pain, Shortness of breath, Family history of coronary artery disease, Near syncope Stress Test Details Test: Exercise stress testing was performed using a Christopher protocol. HR Resting HR: 94 bpm Max Heart Rate (APMHR): 185.710288 bpm Max HR Achieved: 173 bpm Target HR (85% APMHR): 157.546324 bpm % of APMHR: 93.51 Recovery HR: 109 bpm BP Resting BP: 122.0/82.0 mmHg Max BP: 197.0/80.0 mmHg Recovery BP: 130.0/78.0 mmHg ECG Resting ECG: Sinus rhythm Stress ECG Conclusion Requested to stop test due to dizziness at 6:44 minutes. Symptoms: Chest pain, dyspnea, dizziness Arrhythmias/Ectopy: PAC/sinus arrhythmia ST-T Changes: Less than 0.[address] segment changes. Electronically signed by : Bing Alexandre MD 11/13/2025 22:37:17
== END 2025-11-09 23:59 | disposition home or self-care (01) ==
LOC: RT 10:30
PROVIDERS: PCP Nurse Practitioner Family; Visit Provider Physician Assistant
DX: I49.1 Atrial premature depolarization (principal); I49.8 Other specified cardiac arrhythmias; R55 Syncope and collapse; Z82.49 Family history of ischemic heart disease and other diseases of the circulatory system
CPT/HCPCS: 93017; 93018

== ENCOUNTER 2025-11-30 11:00 | Outpatient (RCR) | payer OTHER, SELFPAY ==
--- NOTE | 2025-11-28 11:51 | [facility].RHREAS ---
Rehab Reassessment Rehab OP Re-assessment Start: 11/28/25 11:04 Freq: Status: Active Protocol: Document 11/28/25 11:48 EVELYNJHONY (Rec: 11/28/25 11:51 EVELYNJHONY [id number]) E-signed By Francy Ruffin, OT Rehab Re-assessment Subjective Subjective My shoulder is still the same. Objective Objective Notes The patient is a 35-year-old female referred to skilled outpatient occupational therapy for management of chronic left shoulder pain. She reports persistent left shoulder pain for the past 1?2 years with no significant improvement. Observation reveals postural asymmetry, with the left shoulder positioned lower than the right. Active range of motion of the left shoulder is within functional limits. The patient denies any known mechanism of injury. An X-ray completed on revealed no significant findings. The patient reports intermittent numbness and tingling in the left hand during functional use, as well as increased pain with lifting, pushing, and pulling tasks involving the left upper extremity. The patient presents with chronic left shoulder pain, postural deviations, and intermittent sensory symptoms in the left hand, which are contributing to decreased tolerance and performance during functional upper extremity tasks. These impairments impact the patient?s ability to safely and efficiently complete daily activities requiring lifting, reaching, pushing, and pulling. Since the initial evaluation, the patient has attended only two outpatient OT sessions. The patient reports limited attendance secondary to medical complications related to acid reflux and blood pressure. She reports occasional use of therapy bands at home for left upper extremity strengthening. Due to inconsistent attendance and limited participation in skilled interventions, the patient has not demonstrated measurable progress toward established goals at this time. The patient was educated on the importance of consistent attendance and active participation in skilled occupational therapy services in order to facilitate progress. Assessment Progress Assessment No Progress Assessment Notes The patient continues to demonstrate ongoing pain, postural asymmetry, and intermittent sensory symptoms in the left upper extremity, which require skilled occupational therapy intervention. Skilled OT is necessary to provide ongoing assessment, pain management strategies, postural re-education, neuromuscular re-education, therapeutic exercise progression, and activity modification to improve functional use of the left upper extremity and prevent further decline. Continued skilled intervention is also required to ensure safe progression of exercises, address compensatory movement patterns, and promote carryover of therapeutic strategies into daily activities. Consistent participation in skilled OT services is expected to facilitate improved functional outcomes and progress toward established goals. Initial Evaluation: 10/21/25 3/10 pain at best 8/10 pain at worst QuickDash: 21 Re-assessment on 11/28/25 3/10 pain best 8/10 pain at worst QuickDash: 21 OT Patient Goals OT Short Term 1. Patient will report a 25?50% reduction in left Patient Goals shoulder pain during functional AROM tasks to improve participation in daily routines. 2. Patient will demonstrate improved postural alignment , with decreased visible asymmetry of the shoulders, as evidenced by improved scapular positioning during therapy sessions. 3. Patient will tolerate therapeutic exercises for the L UE (scapular stability, strengthening, and mobility) with pain =3/10. 4. Patient will verbalize and demonstrate understanding of 2?3 activity modification strategies to reduce pain and improve functional performance. 5. Patient will report decreased numbness/tingling in the L hand during functional tasks through implementation of sensory strategies and postural correction. 6. Patient will be independent with a home exercise program (HEP) designed to address posture, shoulder stabilization, and functional mobility. OT Prison Patient 1. Patient will demonstrate improved functional use of Goals the left upper extremity, reporting pain =2/10 during lifting, pushing, and pulling tasks to support independent completion of daily activities Plan Plan Continue Plan of Care Frequency of Therapy 2x/wk Duration of Therapy 4 weeks Therapeutic Exercise Yes Including Home Exercise Program Manual Therapy Yes Techniques Therapeutic Yes Activities to Return to Previous Functional/Work Level Thermal Modalities Yes Electrical Yes Stimulation Ultrasound/ Yes Phonophoresis Iontophoresis Yes Eval/Re-Eval Yes PHYSICIAN CERTIFICATION: I certify the specified therapy services for Josselin Marrufo are required, authorized, and reviewed every 30 days.
== END 2025-11-30 23:59 | disposition home or self-care (01) ==
LOC: OT 11:00
PROVIDERS: PCP Nurse Practitioner Family; Visit Provider Nurse Practitioner Family
DX: M25.512 Pain in left shoulder (principal)
CPT/HCPCS: 97032; 97110; 97530